=== PATIENT | female | born 1980 | race Caucasian/White ===

== ENCOUNTER 2016-11-01 20:51 | Emergency (ER) | payer SELFPAY ==
[~2016-11-01] VITALS: Ht 165.1 cm; Wt 106.6 kg
[~2016-11-01 20:51] MED LIST: ARIP5TAB6 PO; DULO60CA6 PO; LEVO88TA2 PO; LIRA0.6P SQ; Loperamide Hcl PO; METF10002 PO; NAPR500T PO; ONDA4TAB10 SL; Oxycodone Hcl/Acetaminophen PO
[2016-11-01 21:03] VITALS: BP 136/83
[2016-11-01] MEDS ORDERED: CLINDAMYCIN HCL 150 MG CAPSULE PO ONE (21:45)
[2016-11-01] MEDS ORDERED: HYDROCODONE/APAP 5/325MG TABLET. PO ONE (21:45)
[2016-11-01] MEDS ORDERED: HYDR-971 PO (21:48)
[2016-11-01] MEDS ORDERED: CLIN-44 PO (21:48)
--- NOTE | 2016-11-01 21:48 | PHYS DOC ---
Past Medical History Past Medical History: A-Fib, Anemia, Depression, Diabetes-Type II, Kidney Stone , Other Additional Past Medical Histor: multiple spontaneous abortions, ulcerative colitis, Past Surgical History: Cholecystectomy, , Other Additional Past Surgical Histo: D&C, lithotripsy Alcohol Use: None Drug Use: None Adult General Chief Complaint Chief Complaint: BREAST PROBLEM HPI HPI Patient is a 36 year old female with history of anemia, A. fib, depression, diabetes type 2, who presents with infection on her left breast. Patient states she had her left breast biopsied on Saturday this week to remove a skin lesion by her doctor. Patient states she was given antibiotic cream to apply to the area. Patient states she feels the area is getting more infected. Patient states she also has trace clear drainage from the left breast that she noted today. Patient denies any personal history of breast cancer. She states she has family history of breast cancer. Patient denies any fever. Denies any chance she is . Review of Systems Review of Systems Constitutional: Denies fever or chills [] Musculoskeletal: Denies back pain or joint pain [] Integument: Skin infection to the left breast Neurologic: Denies headache, focal weakness or sensory changes [] Endocrine: Denies polyuria or polydipsia [] Allergies Allergies Allergies Coded Allergies Type Severity Reaction Last Updated Verified morphine Allergy Intermediate TOLERATES DILAUDID 09/27/16 No butorphanol Adverse Reaction Severe "i get very angry" 09/27/16 Yes Physical Exam Physical Exam Constitutional: Well developed, well nourished, no acute distress, non-toxic appearance. [] Skin: Left breast around 9 o'clock position with 2 sutures with surrounding 2 cm of cellulitis. There is no drainage from the area, no palpable masses noted on the area. No unusual breast masses noted on exam of the left breast. No nipple discharge noted, no nipple retraction noted on the left breast Back: No tenderness, no CVA tenderness. [] Extremities: No tenderness, no cyanosis, no clubbing, ROM intact, no edema. [] Neurologic: Alert and oriented X 3, normal motor function, normal sensory function, no focal deficits noted. [] Psychologic: Affect normal, judgement normal, mood normal. [] Current Patient Data Vital Signs Vital Signs Date Time Temp Pulse Resp B/P Pulse Ox O2 Delivery O2 Flow Rate FiO2 11/01/16 21:03 98.7 113 18 97 Room Air 98.7 EKG EKG [] Radiology/Procedures Radiology/Procedures [] Course & Med Decision Making Course & Med Decision Making Pertinent Labs and Imaging studies reviewed. (See chart for details) Patient is in the ED with slight cellulitis on left breast biopsy site. This appears to be a superficial infection. She is afebrile. She was put on clindamycin for 10 days, first dose was given in the ED. Discharged with hydrocodone for pain. Recommended she contact the doctor who did the biopsy tomorrow and let the doctor know the area was getting infected. She was provided return precautions discharged in stable condition. Dragon Disclaimer Dragon Disclaimer This electronic medical record was generated, in whole or in part, using a voice recognition dictation system. Departure Departure Impression: Primary Impression: Cellulitis of left breast Disposition: HOME, SELF-CARE Condition: STABLE Referrals: OVIDIO DIAMOND (PCP) Please contact the doctor but didn't biopsied and let them know the area is getting infected. Patient Instructions: Cellulitis, [id number] Additional Instructions: You were seen for cellulitis of the left breast, keep the area clean and dry. Complete your antibiotics, contact the doctor that did the biopsy let them know the area was is getting infected. Come back to the emergency room if symptoms worsen Scripts Hydrocodone/Apap 5-325 ([place] 5-325 Tablet)1 Each Tablet1-2 Tab PO Q4-6HRS #20 TAB Prov:MYCHAL THAPA APRN 11/01/16 Clindamycin Hcl 150 Mg Capsule3 Cap PO TID #90 CAP Prov:MYCHAL THAPA APRN 11/01/16 MYCHAL THAPA APRN Nov 01, 2016 21:49
== END 2016-11-01 22:02 | disposition home or self-care (01) ==
LOC: ER 20:51
DX: N61.0 Mastitis without abscess (principal); I48.91 Unspecified atrial fibrillation; E11.9 Type 2 diabetes mellitus without complications; Z80.3 Family history of malignant neoplasm of breast; Z88.8 Allergy status to other drugs, medicaments and biological substances
CPT/HCPCS: 99283

== ENCOUNTER 2017-03-22 05:02 | Inpatient (IN) | payer OTHER ==
[~2017-03-22] VITALS: Ht 167.6 cm; Wt 104.3 kg
[~2017-03-22 05:02] MED LIST changes: +CLIN-44 PO; +HYDR-971 PO; +METF-620 PO; -METF10002 PO
[2017-03-22 06:30] VITALS: BP 121/83
[2017-03-22 07:00] VITALS: BP 128/86
[2017-03-22] MEDS: PANTOPRAZOLE IV PUSH 40 MG VIAL. IVP SCH (07:57)
[2017-03-22] MEDS: IV NORMAL SALINE 1000ML BAG 1,000 ML IV SCH ×2 (07:58→17:50)
[2017-03-22] MEDS: fentaNYL PF VIAL 100 MCG/2 ML VIAL IV PRN ×5 (08:15→17:49)
[2017-03-22] MEDS: ONDANSETRON PF 4 MG/2 ML VIAL. IV PRN ×2 (08:15→17:48)
[2017-03-22] MEDS ORDERED: LIRA0.6P2 SQ (10:51)
[2017-03-22] MEDS ORDERED: LEVO75TA5 PO (10:51)
[2017-03-22 11:00] VITALS: BP 123/75
--- NOTE | 2017-03-22 11:16 | PDOC2 ---
HARSHAD ROSEN [employer] 03/22/17 1116: CONSULT Date of Consult Date of Consult DATE: 03/22/17 TIME: 11:06 Reason for Consult Reason for Consult: sbo Referring Physician Referring Physician: [facility] Identification/Chief Complaint Chief Complaint abdominal pain Source Source: Chart review, Patient History of Present Illness Reason for Visit: Acute onset of abdominal pain diffusely starting yesterday. Associated nausea, emesis, and burping foul smell. Reports chronic diarrhea for several months, is having some stool and flatus now, however abdominal pain continues and continues to feel bloated. Pain is worse today. She does report that she was admitted to [facility] a few months ago with sbo, treated conservatively. Previous endoscopy a few years ago for colitis. Denies any hx of IBD Csection with low pelvic scar and lap chavo are only surgical hx Past Medical History Pulmonary: No pertinent hx GI: No pertinent hx, Other Heme/Onc: No pertinent hx Hepatobiliary: No pertinent hx Psych: Bipolar, Depression Rheumatologic: No pertinent hx Renal/: Other Endocrine: Diabetes, Hypothyroidism Past Surgical History Past Surgical History: Cholecystectomy, Family History Family History: Hypertension, Other Social History Quit (2 months ago ) ALCOHOL: none Drugs: None Lives: with Family Current Medications Current Medications Current Medications Ondansetron HCl (Zofran) 4 mg PRN Q6HRS PRN IV NAUSEA/VOMITING Last administered on 03/22/17 08:15; Start 03/22/17 at 07:45 Fentanyl Citrate (Fentanyl 2ml Vial) 50 mcg PRN Q2HR PRN IV PAIN Last administered on 03/22/17 08:15; Start 03/22/17 at 07:45 Pantoprazole Sodium (Protonix Vial) 40 mg DAILYAC IVP Last administered on 03/22 07:57; Start 03/22/17 at 08:00 Sodium Chloride 1,000 ml @ 100 mls/hr Q10H IV Last administered on 03/22/17 07:58; Start 03/22/17 at 07:45 Active Scripts Active [place] 5-325 Tablet (Acetaminophen/Hydrocodone Bitart) 1 Each Tablet 1-2 Tab PO Q4-6HRS Clindamycin Hcl 150 Mg Capsule 3 Cap PO TID Zofran Odt (Ondansetron) 4 Mg Tab.rapdis 1 Tab SL Q8HRS [Oxycodone Hcl/Acetaminophen] 1 TAB Tablet 1 Tab PO PRN Q4HRS PRN [Loperamide Hcl] 2 MG Capsule 2 Mg PO BID Reported Victoza 3-Sp (Liraglutide) 0.6 Mg/0.1 Ml Pen.injctr 1.8 Mg SQ HS Levothyroxine Sodium 75 Mcg Tablet 1 Tab PO DAILY Abilify (Aripiprazole) 5 Mg Tablet 5 Mg PO DAILY Cymbalta (Duloxetine Hcl) 60 Mg Capsule.dr 1 Cap PO DAILY Metformin Hcl 1,000 Mg Tablet 1 Tab PO BID Allergies Allergies: Coded Allergies: morphine (Unverified Allergy, Intermediate, TOLERATES DILAUDID, 09/27/16) butorphanol (Verified Adverse Reaction, Severe, "i get very angry", ) ROS General: YES: Chills, No: Other (fevers) PSYCHOLOGICAL ROS: No: Anxiety, Depression Eyes: No Blurry vision, No Double vision HEENT: No: Heacaches, Sore Throat Hematological and Lymphatic: No: Bleeding Problems, Blood Clots Respiratory: YES: Shortness of breath, No: Cough Cardiovascular: No Chest Pain, No Palpitations Gastrointestinal: Yes Other (see hpi) Genitourinary: No Dysuria, No Hematuria Musculoskeletal: No Joint Pain, No Muscle Pain Neurological: No Confusion, No Numbness/Tingling Skin: No Pruritus, No Rash Physical Exam General: Alert, Oriented X3, Cooperative, No acute distress HEENT: Mucous membr. moist/pink, Other (NG in place, bilious ) Lungs: Clear to auscultation, Normal air movement Heart: Regular rate, Normal S1, Normal S2 Abdomen: Soft, Other (tender across upper abdomen, no rebound, peritoneal signs ) Extremities: No clubbing, No cyanosis Skin: No rashes, No breakdown Neuro: Normal speech, Sensation intact Psych/Mental Status: Mental status NL, Mood NL MUSCULOSKELETAL: No deformity, No swelling Vitals VITALS Vital Signs Date Time Temp Pulse Resp B/P (MAP) Pulse Ox O2 Delivery O2 Flow Rate FiO2 03/22/17 08:15 Room Air 03/22/17 07:00 97.4 95 20 128/86 (100) 95 97.4 Labs Labs Laboratory Tests Test 03/22/17 08:00 Glucose (Fingerstick) 98 mg/dL (70-99) Laboratory Tests Test 03/22/17 08:00 Glucose (Fingerstick) 98 mg/dL (70-99) Assessment/Plan Assessment/Plan sbo vs ileus--diarrhea CT reviewed from [facility]--no transition point hx of csection and lap chavo possible SBO couple months ago at [facility] obesity with BMI 35.4 lipase elevated 485, no acute findings on CT NG to LIS, bowel rest, hydration repeat plain films in AM consider SBFT to further eval check C diff will consult GI WILLIE HAYNES MD 03/22/17 1403: CONSULT Allergies Allergies: Coded Allergies: morphine (Unverified Allergy, Intermediate, TOLERATES DILAUDID, 09/27/16) butorphanol (Verified Adverse Reaction, Severe, "i get very angry", ) Assessment/Plan Assessment/Plan Patient seen and examined by me. She complains of abd pain, no nausea. Having diarrhea. Abd soft, mildly distended, TTP diffusely. CT reviewed dilated loops of small bowel. Possible infectious diarrhea, Agree with Ketty's assessment and plan. HARSHAD ROSEN APRN March 22, 2017 11:16 WILLIE HAYNES MD March 22, 2017 14:03
--- NOTE | 2017-03-22 11:48 | HP ---
ADMIT DATE: 03/22/2017 CHIEF COMPLAINT: Abdominal pain, probable small-bowel obstruction. HISTORY OF PRESENT ILLNESS: The patient is a pleasant, healthy middle-aged white female who presents to [facility] ER with nausea, vomiting, and abdominal pain. Imaging study showed a small-bowel obstruction. An NG was placed. She has now been transferred to our facility with consultation to GI and General Surgery. PAST MEDICAL HISTORY: Previous bowel obstruction, cholecystectomy. ALLERGIES: None. FAMILY HISTORY: Hypertension. SOCIAL HISTORY: She does not drink, smoke or take drugs. MEDICATIONS: Reviewed, please refer to the MRAD. REVIEW OF SYSTEMS: GENERAL: No history of weight change, weakness or fevers. SKIN: No bruising, hair changes or rashes. EYES: No blurred, double or loss of vision. NOSE AND THROAT: No history of nosebleeds, hoarseness or sore throat. HEART: No history of palpitations, chest pain or shortness of breath on exertion. LUNGS: Denies cough, hemoptysis, wheezing or shortness of breath. GASTROINTESTINAL: She complains of pain and nausea. GENITOURINARY: No history of frequency, urgency, hesitancy or nocturia. NEUROLOGIC: Denies history of numbness, tingling, tremor or weakness. PSYCHIATRIC: No history of panic, anxiety or depression. ENDOCRINE: No history of heat or cold intolerance, polyuria or polydipsia. EXTREMITIES: Denies muscle weakness, joint pain, pain on walking or stiffness. PHYSICAL EXAMINATION: VITAL SIGNS: Temperature afebrile, pulse 74, respirations 20, blood pressure 142/96. GENERAL: She is alert, cooperative. HEART: Normal S1, S2. LUNGS: Clear. ABDOMEN: Soft. Decreased bowel sounds, tender. EXTREMITIES: No edema. SKIN: No rashes. PSYCHIATRIC: She is a little depressed. VASCULAR: Good capillary refill. ENDOCRINE: No thyromegaly. LYMPHATICS: No cervical nodes. HEMATOPOIETIC: No bruising. LABORATORY DATA: Pending, other than a glucose of 98. I did order a CBC and a BMP. ASSESSMENT AND PLAN: Small-bowel obstruction. The patient has an NG to suction. We will continue with that. Consult GI, consult General Surgery. We will try to resume her home meds once we get the NG out. IV hydration, n.p.o. We will probably repeat serial KUBs, PT, OT and labs. AMADORL Yelena DESAI DO DR: NATASHA/leon JOB#: [id number] / [id number]
--- NOTE | 2017-03-22 12:05 | PDOC2 ---
GI CONSULT Reason For Consult: Ileus vs SBO HPI: HPI: Pt seen w/ Dr. Valladares. 36 y/o female transferred from [facility] where CT showed dilated loops of bowel. Surgery following, has NG. H/o previous abd surgeries and obstructive symptoms at [facility] recently, treated conservatively. Recently has had "egg burps," yesterday had emesis that smelled like stool w/ bloating and periumbilical pain. Chronic diarrhea, was worse recently but has slowed that past few days. Has had previous EGD and more than one colonoscopy, one w/ "colitis" and one reportedly normal. No reflux/heartburn or NSAID use. PMH: PMH: DM, hypothyroidism, bipolar, depression, cholecystectomy, , D&Cs, endometrial ablation, cystoscopy FH: Family History: Other (grandmother - Crohn's) Social History: Smoke: Quit (2 months ago ) ALCOHOL: none Drugs: None ROS: GEN: Denies fevers, chills, sweats HEENT: Denies blurred vision, sore throat CV: Denies chest pain RESP: Denies shortness of air, cough GI: Per HPI : Denies hematuria, dysuria ENDO: Denies weight changes NEURO: Denies confusion, dizziness MSK: Denies weakness, joint pain/swelling SKIN: Denies jaundice, pruritus Vitals: Vitals: Vital Signs Date Time Temp Pulse Resp B/P (MAP) Pulse Ox O2 Delivery O2 Flow Rate FiO2 03/22/17 11:13 Room Air 03/22/17 11:00 97.4 100 20 123/75 (91) 97 97.4 Labs: Labs: Laboratory Tests Test 03/22/17 08:00 Glucose (Fingerstick) 98 mg/dL (70-99) Allergies: Coded Allergies: morphine (Unverified Allergy, Intermediate, TOLERATES DILAUDID, 09/27/16) butorphanol (Verified Adverse Reaction, Severe, "i get very angry", ) Medications: Current Medications Medications (Trade) Dose Ordered Sig/Chandler Route PRN Reason Start Time Stop Time Status Last Admin Dose Admin Ondansetron HCl (Zofran) 4 mg PRN Q6HRS PRN IV NAUSEA/VOMITING 03/22/17 07:45 03/22/17 08:15 Fentanyl Citrate (Fentanyl 2ml Vial) 50 mcg PRN Q2HR PRN IV PAIN 03/22/17 07:45 03/22/17 11:13 Pantoprazole Sodium (Protonix Vial) 40 mg DAILYAC IVP 03/22/17 08:00 03/22/17 07:57 Sodium Chloride 1,000 ml @ 100 mls/hr Q10H IV 03/22/17 07:45 03/22/17 07:58 Imaging: Imaging: - PE: GEN: NAD HEENT: Atraumatic, PERRL LUNGS: CTAB HEART: RRR ABD: firm, tender EXTREMITY: No edema SKIN: No rashes, no jaundice NEURO/PSYCH: A & O 3 A/P: A/P: Ileus vs SBO -previous obstructive symptoms at another hospital, conservative treatment -abd pain, vomiting recurred Chronic diarrhea, h/o "colitis" H/o abd surgeries -chavo, FH Crohn's -- Agree w/ NPO, NG, serial imaging. Check lactic acid w/ severe pain. Note orders to check C Diff as well. Will review records of previous EGD/colonoscopy. SHARIF GARVEY March 22, 2017 12:05
[2017-03-22] MEDS: METOCLOPRAMIDE HCL 10 MG/2 ML VIAL. IV PRN (13:15)
[2017-03-22 15:00] VITALS: BP 116/70
[2017-03-22] MEDS ORDERED: PHENOL ORAL SPRAY 177ML BOTTLE. PO PRN (18:45)
[2017-03-22 19:00] VITALS: BP 114/68
[2017-03-22 23:00] VITALS: BP 134/72
[2017-03-23 03:00] VITALS: BP 115/77
[2017-03-23] MEDS: IV NORMAL SALINE 1000ML BAG 1,000 ML IV SCH (04:28)
[2017-03-23] MEDS: fentaNYL PF VIAL 100 MCG/2 ML VIAL IV PRN ×7 (04:28→20:24)
[2017-03-23 05:18] LABS: BASO % 1 % (0-3); EOS % 2 % (0-3); HEMATOCRIT 34.3 % (36.0-47.0); HEMOGLOBIN 11.3 g/dL (12.0-15.5); LYMPH % 25 % (24-48); MEAN CORPUSCULAR HEMOGLOBIN 29 pg (25-35); MEAN CORPUSCULAR HGB CONC 33 g/dL (31-37); MEAN CORPUSCULAR VOLUME 89 fL (79-100); MONO % 4 % (0-9); NEUT % 68 % (31-73); PLATELET COUNT 323 x10^3/uL (140-400); RED BLOOD COUNT 3.88 x10^6/uL (3.50-5.40); RED CELL DISTRIBUTION WIDTH 15.5 % (11.5-14.5); WHITE BLOOD COUNT 7.7 x10^3/uL (4.0-11.0)
[2017-03-23 05:37] LABS: CALCIUM 8.2 mg/dL (8.5-10.1); CREATININE 0.7 mg/dL (0.6-1.0); GFR 95.8; POTASSIUM 3.9 mmol/L (3.5-5.1)
[2017-03-23 07:00] VITALS: BP 132/85
[2017-03-23] MEDS: PANTOPRAZOLE IV PUSH 40 MG VIAL. IVP SCH (08:01)
--- NOTE | 2017-03-23 08:01 | RAD ---
EXAM: Abdomen acute complete. HISTORY: Small bowel obstruction. COMPARISON: CT dated 02/15/2016. FINDINGS: A frontal view the chest and frontal upright and supine views of the abdomen are obtained. There is no infiltrate, effusion or pneumothorax. The heart is normal in size. There is a nasogastric tube looped within the stomach with the tip in the gastric antrum or pylorus. There is gas and stool within the colon. No abnormally dilated air-filled loop of small bowel seen. There is no intraperitoneal free air. IMPRESSION: 1. No acute pulmonary finding. 2. Nonobstructive bowel gas pattern.
[2017-03-23] MEDS: ONDANSETRON PF 4 MG/2 ML VIAL. IV PRN ×2 (08:04→17:56)
--- NOTE | 2017-03-23 08:12 | ACF ---
Admission Forms Criteria INTESTINAL OBSTRUCTION Clinical Indications for Admission to Inpatient Care (Place 'X' for any and all applicable criteria): Admission is indicated for ANY ONE of the following (1)(2)(3)(4)(5): [ ]I. Partial bowel obstruction [X]II. Complete bowel obstruction Extended stay beyond goal length of stay may be needed for(1)(4)(12(: [ ]a) Identified etiology (eg, hernia, volvulus, cancer with obstruction) requiring intervention [ ]b) Gallstone ileus [ ]c) Surgical intervention [ ]d) Acute comorbid illness (eg, electrolyte imbalance, hypovolemia, renal failure) The original [employer] content created by [employer] has been revised. The portions of the content which have been revised are identified through the use of italic text or in bold, and [facility] has neither reviewed nor approved the modified material. All other unmodified content is copyright [employer]. Please see references footnoted in the original [employer] edition 2016 Admission Criteria Met?: Yes MARIVEL CRYSTAL March 23, 2017 08:12
--- NOTE | 2017-03-23 09:10 | PDOC ---
SURGICAL PROGRESS NOTE Subjective Feeling bloated today, no diarrhea today. Vital Signs Vital Signs Date Time Temp Pulse Resp B/P (MAP) Pulse Ox O2 Delivery O2 Flow Rate FiO2 03/23/17 08:39 Room Air 03/23/17 07:00 97.9 102 16 132/85 (101) 96 97.9 I&O Intake and Output 03/23/17 07:00 Intake Total 0 ml Output Total 1800 ml Balance -1800 ml Intake Oral 0 ml Output Gastric Drainage Total 700 ml Drainage Total 1100 ml # Voids 2 PATIENT HAS A CHAVEZ: No General: Alert, Oriented X3, Cooperative, mild distress Abdomen: Normal bowel sounds, Soft, Other (less tender. NGT in place with minimal output.) Labs Laboratory Tests Test 03/22/17 08:00 03/22/17 12:01 03/22/17 12:15 03/22/17 16:50 Glucose (Fingerstick) 98 mg/dL (70-99) 105 mg/dL (70-99) 89 mg/dL (70-99) Lactic Acid Level 1.3 mmol/L (0.4-2.0) Test 03/22/17 21:15 03/23/17 04:00 03/23/17 07:27 Glucose (Fingerstick) 77 mg/dL (70-99) 120 mg/dL (70-99) White Blood Count 7.7 x10^3/uL (4.0-11.0) Red Blood Count 3.88 x10^6/uL (3.50-5.40) Hemoglobin 11.3 g/dL (12.0-15.5) Hematocrit 34.3 % (36.0-47.0) Mean Corpuscular Volume 89 fL (79-100) Mean Corpuscular Hemoglobin 29 pg (25-35) Mean Corpuscular Hemoglobin Concent 33 g/dL (31-37) Red Cell Distribution Width 15.5 % (11.5-14.5) Platelet Count 323 x10^3/uL (140-400) Neutrophils (%) (Auto) 68 % (31-73) Lymphocytes (%) (Auto) 25 % (24-48) Monocytes (%) (Auto) 4 % (0-9) Eosinophils (%) (Auto) 2 % (0-3) Basophils (%) (Auto) 1 % (0-3) Neutrophils # (Auto) 5.3 x10^3uL (1.8-7.7) Lymphocytes # (Auto) 2.0 x10^3/uL (1.0-4.8) Monocytes # (Auto) 0.3 x10^3/uL (0.0-1.1) Eosinophils # (Auto) 0.2 x10^3/uL (0.0-0.7) Basophils # (Auto) 0.0 x10^3/uL (0.0-0.2) Sodium Level 142 mmol/L (136-145) Potassium Level 3.9 mmol/L (3.5-5.1) Chloride Level 109 mmol/L (98-107) Carbon Dioxide Level 24 mmol/L (21-32) Anion Gap 9 (6-14) Blood Urea Nitrogen 12 mg/dL (7-20) Creatinine 0.7 mg/dL (0.6-1.0) Estimated GFR (Cockcroft-Gault) 95.8 Glucose Level 108 mg/dL (70-99) Calcium Level 8.2 mg/dL (8.5-10.1) Laboratory Tests Test 03/22/17 12:01 03/22/17 12:15 03/22/17 16:50 03/22/17 21:15 Glucose (Fingerstick) 105 mg/dL (70-99) 89 mg/dL (70-99) 77 mg/dL (70-99) Lactic Acid Level 1.3 mmol/L (0.4-2.0) Test 03/23/17 04:00 03/23/17 07:27 White Blood Count 7.7 x10^3/uL (4.0-11.0) Red Blood Count 3.88 x10^6/uL (3.50-5.40) Hemoglobin 11.3 g/dL (12.0-15.5) Hematocrit 34.3 % (36.0-47.0) Mean Corpuscular Volume 89 fL (79-100) Mean Corpuscular Hemoglobin 29 pg (25-35) Mean Corpuscular Hemoglobin Concent 33 g/dL (31-37) Red Cell Distribution Width 15.5 % (11.5-14.5) Platelet Count 323 x10^3/uL (140-400) Neutrophils (%) (Auto) 68 % (31-73) Lymphocytes (%) (Auto) 25 % (24-48) Monocytes (%) (Auto) 4 % (0-9) Eosinophils (%) (Auto) 2 % (0-3) Basophils (%) (Auto) 1 % (0-3) Neutrophils # (Auto) 5.3 x10^3uL (1.8-7.7) Lymphocytes # (Auto) 2.0 x10^3/uL (1.0-4.8) Monocytes # (Auto) 0.3 x10^3/uL (0.0-1.1) Eosinophils # (Auto) 0.2 x10^3/uL (0.0-0.7) Basophils # (Auto) 0.0 x10^3/uL (0.0-0.2) Sodium Level 142 mmol/L (136-145) Potassium Level 3.9 mmol/L (3.5-5.1) Chloride Level 109 mmol/L (98-107) Carbon Dioxide Level 24 mmol/L (21-32) Anion Gap 9 (6-14) Blood Urea Nitrogen 12 mg/dL (7-20) Creatinine 0.7 mg/dL (0.6-1.0) Estimated GFR (Cockcroft-Gault) 95.8 Glucose Level 108 mg/dL (70-99) Calcium Level 8.2 mg/dL (8.5-10.1) Glucose (Fingerstick) 120 mg/dL (70-99) I have reviewed the following Abd films show normal bowel gas pattern no evidence of obstruction Assessment/Plan Abd pain with diarrhea, does not appear to be nonobstructive Would recommend removal of NGT unless GI wants to do SBFT then would leave to administer contrast No surgical indications at this time. Problems: WILLIE HAYNES MD March 23, 2017 09:10
--- NOTE | 2017-03-23 10:24 | PDOC ---
G I PROGRESS NOTE Subjective Some mid-abdominal cramps persist. NG output apparently slowing. No stool or flatus. Physical Exam Lungs clear. RRR Abdomen protuberant, not tense. Mildly tender mid-abdomen. Not many bowel sounds. Review of Relevant I have reviewed the following items chivo (where applicable) has been applied. Labs Laboratory Tests Test 03/22/17 08:00 03/22/17 12:01 03/22/17 12:15 03/22/17 16:50 Glucose (Fingerstick) 98 mg/dL (70-99) 105 mg/dL (70-99) 89 mg/dL (70-99) Lactic Acid Level 1.3 mmol/L (0.4-2.0) Test 03/22/17 21:15 03/23/17 04:00 03/23/17 07:27 Glucose (Fingerstick) 77 mg/dL (70-99) 120 mg/dL (70-99) White Blood Count 7.7 x10^3/uL (4.0-11.0) Red Blood Count 3.88 x10^6/uL (3.50-5.40) Hemoglobin 11.3 g/dL (12.0-15.5) Hematocrit 34.3 % (36.0-47.0) Mean Corpuscular Volume 89 fL (79-100) Mean Corpuscular Hemoglobin 29 pg (25-35) Mean Corpuscular Hemoglobin Concent 33 g/dL (31-37) Red Cell Distribution Width 15.5 % (11.5-14.5) Platelet Count 323 x10^3/uL (140-400) Neutrophils (%) (Auto) 68 % (31-73) Lymphocytes (%) (Auto) 25 % (24-48) Monocytes (%) (Auto) 4 % (0-9) Eosinophils (%) (Auto) 2 % (0-3) Basophils (%) (Auto) 1 % (0-3) Neutrophils # (Auto) 5.3 x10^3uL (1.8-7.7) Lymphocytes # (Auto) 2.0 x10^3/uL (1.0-4.8) Monocytes # (Auto) 0.3 x10^3/uL (0.0-1.1) Eosinophils # (Auto) 0.2 x10^3/uL (0.0-0.7) Basophils # (Auto) 0.0 x10^3/uL (0.0-0.2) Sodium Level 142 mmol/L (136-145) Potassium Level 3.9 mmol/L (3.5-5.1) Chloride Level 109 mmol/L (98-107) Carbon Dioxide Level 24 mmol/L (21-32) Anion Gap 9 (6-14) Blood Urea Nitrogen 12 mg/dL (7-20) Creatinine 0.7 mg/dL (0.6-1.0) Estimated GFR (Cockcroft-Gault) 95.8 Glucose Level 108 mg/dL (70-99) Calcium Level 8.2 mg/dL (8.5-10.1) Laboratory Tests Test 03/22/17 12:01 03/22/17 12:15 03/22/17 16:50 03/22/17 21:15 Glucose (Fingerstick) 105 mg/dL (70-99) 89 mg/dL (70-99) 77 mg/dL (70-99) Lactic Acid Level 1.3 mmol/L (0.4-2.0) Test 03/23/17 04:00 03/23/17 07:27 White Blood Count 7.7 x10^3/uL (4.0-11.0) Red Blood Count 3.88 x10^6/uL (3.50-5.40) Hemoglobin 11.3 g/dL (12.0-15.5) Hematocrit 34.3 % (36.0-47.0) Mean Corpuscular Volume 89 fL (79-100) Mean Corpuscular Hemoglobin 29 pg (25-35) Mean Corpuscular Hemoglobin Concent 33 g/dL (31-37) Red Cell Distribution Width 15.5 % (11.5-14.5) Platelet Count 323 x10^3/uL (140-400) Neutrophils (%) (Auto) 68 % (31-73) Lymphocytes (%) (Auto) 25 % (24-48) Monocytes (%) (Auto) 4 % (0-9) Eosinophils (%) (Auto) 2 % (0-3) Basophils (%) (Auto) 1 % (0-3) Neutrophils # (Auto) 5.3 x10^3uL (1.8-7.7) Lymphocytes # (Auto) 2.0 x10^3/uL (1.0-4.8) Monocytes # (Auto) 0.3 x10^3/uL (0.0-1.1) Eosinophils # (Auto) 0.2 x10^3/uL (0.0-0.7) Basophils # (Auto) 0.0 x10^3/uL (0.0-0.2) Sodium Level 142 mmol/L (136-145) Potassium Level 3.9 mmol/L (3.5-5.1) Chloride Level 109 mmol/L (98-107) Carbon Dioxide Level 24 mmol/L (21-32) Anion Gap 9 (6-14) Blood Urea Nitrogen 12 mg/dL (7-20) Creatinine 0.7 mg/dL (0.6-1.0) Estimated GFR (Cockcroft-Gault) 95.8 Glucose Level 108 mg/dL (70-99) Calcium Level 8.2 mg/dL (8.5-10.1) Glucose (Fingerstick) 120 mg/dL (70-99) Medications Current Medications Ondansetron HCl (Zofran) 4 mg PRN Q6HRS PRN IV NAUSEA/VOMITING Last administered on 03/23/17 08:04; Start 03/22/17 at 07:45 Fentanyl Citrate (Fentanyl 2ml Vial) 50 mcg PRN Q2HR PRN IV PAIN Last administered on 03/23/17 04:28; Start 03/22/17 at 07:45 Pantoprazole Sodium (Protonix Vial) 40 mg DAILYAC IVP Last administered on 03/23 08:01; Start 03/22/17 at 08:00 Sodium Chloride 1,000 ml @ 100 mls/hr Q10H IV Last administered on 03/23/17 04:28; Start 03/22/17 at 07:45 Fentanyl Citrate (Fentanyl 2ml Vial) 75 mcg PRN Q2HR PRN IV MODERATE PAIN Last administered on 03/23/17 08:02; Start 03/22/17 at 12:30 Metoclopramide HCl (Reglan) 10 mg PRN Q6HRS PRN IV NAUSEA/VOMITING Last administered on 03/22/17 13:15; Start 03/22/17 at 13:00 Throat Lozenges (Chloraseptic) 1 spray PRN Q2HR PRN PO SORE THROAT Last administered on 03/22/17 21:03; Start 03/22/17 at 18:45 Lorazepam (Ativan) 0.5 mg PRN BID PRN IV ANXIETY / AGITATION Last administered on 03/22/17 21:02; Start 03/22/17 at 20:30 Active Scripts Active [place] 5-325 Tablet (Acetaminophen/Hydrocodone Bitart) 1 Each Tablet 1-2 Tab PO Q4-6HRS Clindamycin Hcl 150 Mg Capsule 3 Cap PO TID Zofran Odt (Ondansetron) 4 Mg Tab.rapdis 1 Tab SL Q8HRS [Oxycodone Hcl/Acetaminophen] 1 TAB Tablet 1 Tab PO PRN Q4HRS PRN [Loperamide Hcl] 2 MG Capsule 2 Mg PO BID Reported Victoza 3-Sp (Liraglutide) 0.6 Mg/0.1 Ml Pen.injctr 1.8 Mg SQ HS Levothyroxine Sodium 75 Mcg Tablet 1 Tab PO DAILY Abilify (Aripiprazole) 5 Mg Tablet 5 Mg PO DAILY Cymbalta (Duloxetine Hcl) 60 Mg Capsule. 1 Cap PO DAILY Metformin Hcl 1,000 Mg Tablet 1 Tab PO BID Vitals/I & O Vital Sign - Last 24 Hours 03/22/17 03/22/17 03/22/17 03/22/17 11:00 11:13 12:36 15:00 Temp 97.4 97.7 97.4 97.7 Pulse 100 93 Resp 20 20 B/P (MAP) 123/75 (91) 116/70 (85) Pulse Ox 97 96 O2 Delivery Room Air Room Air Room Air Room Air 03/22/17 03/22/17 03/22/17 03/22/17 15:22 17:49 19:00 20:00 Temp 97.7 97.7 Pulse 95 Resp 18 B/P (MAP) 114/68 (83) Pulse Ox 94 O2 Delivery Room Air Room Air Room Air Room Air 03/22/17 03/23/17 03/23/17 03/23/17 23:00 03:00 04:28 04:58 Temp 97.9 97.6 97.9 97.6 Pulse 114 98 Resp 18 18 16 16 B/P (MAP) 134/72 (92) 115/77 (90) Pulse Ox 94 96 94 94 O2 Delivery Room Air Room Air Room Air Room Air 03/23/17 03/23/17 03/23/17 03/23/17 07:00 07:15 08:02 08:39 Temp 97.9 97.9 Pulse 102 Resp 16 B/P (MAP) 132/85 (101) Pulse Ox 96 O2 Delivery Room Air Room Air Room Air Room Air Intake and Output 03/22/17 03/22/17 03/23/17 15:00 23:00 07:00 Intake Total 0 ml 0 ml Output Total 700 ml 1100 ml Balance -700 ml -1100 ml Images Only got a portable "upright" on AAS. Assessment SBO, recurrent--adhesions? Clinically has not resolved. Plan of Care Note Would continue NG, other as now at least another 24 hours. Upright abdomen STANDING in AM. JENNIFER NUNEZ MD March 23, 2017 10:24
[2017-03-23] MEDS: METOCLOPRAMIDE HCL 10 MG/2 ML VIAL. IV PRN (10:35)
[2017-03-23 11:10] VITALS: BP 118/72
--- NOTE | 2017-03-23 12:45 | PDOC ---
PROGRESS NOTES Chief Complaint Chief Complaint Possible SBO H/o previous SBO DM Hypothyroidism Bipolar disorder Depression Cholecystectomy D&Cs Endometrial ablation Cystoscopy History of Present Illness History of Present Illness Patient was lying in bed in NAD this am NG tube in place States she still has some upper abdominal tenderness Has not had a bowel movement Discussed switching to PPN since she has not had anything to eat Vitals Vitals Vital Signs Date Time Temp Pulse Resp B/P (MAP) Pulse Ox O2 Delivery O2 Flow Rate FiO2 03/23/17 11:10 98.7 96 20 118/72 (87) 92 Room Air 98.7 Physical Exam General: Alert, Oriented X3, Cooperative, No acute distress Heart: Regular rate, Normal S1, Normal S2 Lungs: Clear, Other (no wheezing) Abdomen: Normal bowel sounds, Soft, Other (less tender. NGT in place with minimal output.) Extremities: No clubbing, No cyanosis Skin: No rashes, No breakdown Labs LABS Laboratory Tests Test 03/22/17 16:50 03/22/17 21:15 03/23/17 04:00 03/23/17 07:27 Glucose (Fingerstick) 89 mg/dL (70-99) 77 mg/dL (70-99) 120 mg/dL (70-99) White Blood Count 7.7 x10^3/uL (4.0-11.0) Red Blood Count 3.88 x10^6/uL (3.50-5.40) Hemoglobin 11.3 g/dL (12.0-15.5) Hematocrit 34.3 % (36.0-47.0) Mean Corpuscular Volume 89 fL (79-100) Mean Corpuscular Hemoglobin 29 pg (25-35) Mean Corpuscular Hemoglobin Concent 33 g/dL (31-37) Red Cell Distribution Width 15.5 % (11.5-14.5) Platelet Count 323 x10^3/uL (140-400) Neutrophils (%) (Auto) 68 % (31-73) Lymphocytes (%) (Auto) 25 % (24-48) Monocytes (%) (Auto) 4 % (0-9) Eosinophils (%) (Auto) 2 % (0-3) Basophils (%) (Auto) 1 % (0-3) Neutrophils # (Auto) 5.3 x10^3uL (1.8-7.7) Lymphocytes # (Auto) 2.0 x10^3/uL (1.0-4.8) Monocytes # (Auto) 0.3 x10^3/uL (0.0-1.1) Eosinophils # (Auto) 0.2 x10^3/uL (0.0-0.7) Basophils # (Auto) 0.0 x10^3/uL (0.0-0.2) Sodium Level 142 mmol/L (136-145) Potassium Level 3.9 mmol/L (3.5-5.1) Chloride Level 109 mmol/L (98-107) Carbon Dioxide Level 24 mmol/L (21-32) Anion Gap 9 (6-14) Blood Urea Nitrogen 12 mg/dL (7-20) Creatinine 0.7 mg/dL (0.6-1.0) Estimated GFR (Cockcroft-Gault) 95.8 Glucose Level 108 mg/dL (70-99) Calcium Level 8.2 mg/dL (8.5-10.1) Test 03/23/17 11:46 Glucose (Fingerstick) 98 mg/dL (70-99) Review of Systems Review of Systems General: denies weakness GI: upper abdominal tenderness, denies V/D/C Assessment and Plan Assessmemt and Plan Assessment: Possible SBO H/o previous SBO DM Hypothyroidism Bipolar disorder Depression Cholecystectomy D&Cs Endometrial ablation Cystoscopy Plan: -Continue NG suction -Surgery following- state surgery not indicated at this time -GI following - continue NG suction -Standing abdominal series in AM per GI -Switch IVF to PPN -Recheck am labs -Appreciate subspecialist input Problems: Comment Review of Relevant I have reviewed the following items chivo (where applicable) has been applied. Labs Laboratory Tests Test 03/22/17 08:00 03/22/17 12:01 03/22/17 12:15 03/22/17 16:50 Glucose (Fingerstick) 98 mg/dL (70-99) 105 mg/dL (70-99) 89 mg/dL (70-99) Lactic Acid Level 1.3 mmol/L (0.4-2.0) Test 03/22/17 21:15 03/23/17 04:00 03/23/17 07:27 03/23/17 11:46 Glucose (Fingerstick) 77 mg/dL (70-99) 120 mg/dL (70-99) 98 mg/dL (70-99) White Blood Count 7.7 x10^3/uL (4.0-11.0) Red Blood Count 3.88 x10^6/uL (3.50-5.40) Hemoglobin 11.3 g/dL (12.0-15.5) Hematocrit 34.3 % (36.0-47.0) Mean Corpuscular Volume 89 fL (79-100) Mean Corpuscular Hemoglobin 29 pg (25-35) Mean Corpuscular Hemoglobin Concent 33 g/dL (31-37) Red Cell Distribution Width 15.5 % (11.5-14.5) Platelet Count 323 x10^3/uL (140-400) Neutrophils (%) (Auto) 68 % (31-73) Lymphocytes (%) (Auto) 25 % (24-48) Monocytes (%) (Auto) 4 % (0-9) Eosinophils (%) (Auto) 2 % (0-3) Basophils (%) (Auto) 1 % (0-3) Neutrophils # (Auto) 5.3 x10^3uL (1.8-7.7) Lymphocytes # (Auto) 2.0 x10^3/uL (1.0-4.8) Monocytes # (Auto) 0.3 x10^3/uL (0.0-1.1) Eosinophils # (Auto) 0.2 x10^3/uL (0.0-0.7) Basophils # (Auto) 0.0 x10^3/uL (0.0-0.2) Sodium Level 142 mmol/L (136-145) Potassium Level 3.9 mmol/L (3.5-5.1) Chloride Level 109 mmol/L (98-107) Carbon Dioxide Level 24 mmol/L (21-32) Anion Gap 9 (6-14) Blood Urea Nitrogen 12 mg/dL (7-20) Creatinine 0.7 mg/dL (0.6-1.0) Estimated GFR (Cockcroft-Gault) 95.8 Glucose Level 108 mg/dL (70-99) Calcium Level 8.2 mg/dL (8.5-10.1) Laboratory Tests Test 03/22/17 16:50 03/22/17 21:15 03/23/17 04:00 03/23/17 07:27 Glucose (Fingerstick) 89 mg/dL (70-99) 77 mg/dL (70-99) 120 mg/dL (70-99) White Blood Count 7.7 x10^3/uL (4.0-11.0) Red Blood Count 3.88 x10^6/uL (3.50-5.40) Hemoglobin 11.3 g/dL (12.0-15.5) Hematocrit 34.3 % (36.0-47.0) Mean Corpuscular Volume 89 fL (79-100) Mean Corpuscular Hemoglobin 29 pg (25-35) Mean Corpuscular Hemoglobin Concent 33 g/dL (31-37) Red Cell Distribution Width 15.5 % (11.5-14.5) Platelet Count 323 x10^3/uL (140-400) Neutrophils (%) (Auto) 68 % (31-73) Lymphocytes (%) (Auto) 25 % (24-48) Monocytes (%) (Auto) 4 % (0-9) Eosinophils (%) (Auto) 2 % (0-3) Basophils (%) (Auto) 1 % (0-3) Neutrophils # (Auto) 5.3 x10^3uL (1.8-7.7) Lymphocytes # (Auto) 2.0 x10^3/uL (1.0-4.8) Monocytes # (Auto) 0.3 x10^3/uL (0.0-1.1) Eosinophils # (Auto) 0.2 x10^3/uL (0.0-0.7) Basophils # (Auto) 0.0 x10^3/uL (0.0-0.2) Sodium Level 142 mmol/L (136-145) Potassium Level 3.9 mmol/L (3.5-5.1) Chloride Level 109 mmol/L (98-107) Carbon Dioxide Level 24 mmol/L (21-32) Anion Gap 9 (6-14) Blood Urea Nitrogen 12 mg/dL (7-20) Creatinine 0.7 mg/dL (0.6-1.0) Estimated GFR (Cockcroft-Gault) 95.8 Glucose Level 108 mg/dL (70-99) Calcium Level 8.2 mg/dL (8.5-10.1) Test 03/23/17 11:46 Glucose (Fingerstick) 98 mg/dL (70-99) Medications Current Medications Ondansetron HCl (Zofran) 4 mg PRN Q6HRS PRN IV NAUSEA/VOMITING Last administered on 03/23/17 08:04; Start 03/22/17 at 07:45 Fentanyl Citrate (Fentanyl 2ml Vial) 50 mcg PRN Q2HR PRN IV PAIN Last administered on 03/23/17 04:28; Start 03/22/17 at 07:45 Pantoprazole Sodium (Protonix Vial) 40 mg DAILYAC IVP Last administered on 03/23 08:01; Start 03/22/17 at 08:00 Sodium Chloride 1,000 ml @ 100 mls/hr Q10H IV Last administered on 03/23/17 04:28; Start 03/22/17 at 07:45 Fentanyl Citrate (Fentanyl 2ml Vial) 75 mcg PRN Q2HR PRN IV MODERATE PAIN Last administered on 03/23/17 10:36; Start 03/22/17 at 12:30 Metoclopramide HCl (Reglan) 10 mg PRN Q6HRS PRN IV NAUSEA/VOMITING Last administered on 03/23/17 10:35; Start 03/22/17 at 13:00 Throat Lozenges (Chloraseptic) 1 spray PRN Q2HR PRN PO SORE THROAT Last administered on 03/22/17 21:03; Start 03/22/17 at 18:45 Lorazepam (Ativan) 0.5 mg PRN BID PRN IV ANXIETY / AGITATION Last administered on 03/23/17 11:56; Start 03/22/17 at 20:30 Active Scripts Active [place] 5-325 Tablet (Acetaminophen/Hydrocodone Bitart) 1 Each Tablet 1-2 Tab PO Q4-6HRS Clindamycin Hcl 150 Mg Capsule 3 Cap PO TID Zofran Odt (Ondansetron) 4 Mg Tab.rapdis 1 Tab SL Q8HRS [Oxycodone Hcl/Acetaminophen] 1 TAB Tablet 1 Tab PO PRN Q4HRS PRN [Loperamide Hcl] 2 MG Capsule 2 Mg PO BID Reported Victoza 3-Sp (Liraglutide) 0.6 Mg/0.1 Ml Pen.injctr 1.8 Mg SQ HS Levothyroxine Sodium 75 Mcg Tablet 1 Tab PO DAILY Abilify (Aripiprazole) 5 Mg Tablet 5 Mg PO DAILY Cymbalta (Duloxetine Hcl) 60 Mg Capsule.dr 1 Cap PO DAILY Metformin Hcl 1,000 Mg Tablet 1 Tab PO BID Vitals/I & O Vital Sign - Last 24 Hours 03/22/17 03/22/17 03/22/17 03/22/17 15:00 15:22 17:49 19:00 Temp 97.7 97.7 97.7 97.7 Pulse 93 95 Resp 20 18 B/P (MAP) 116/70 (85) 114/68 (83) Pulse Ox 96 94 O2 Delivery Room Air Room Air Room Air Room Air 03/22/17 03/22/17 03/23/17 03/23/17 20:00 23:00 03:00 04:28 Temp 97.9 97.6 97.9 97.6 Pulse 114 98 Resp 18 18 16 B/P (MAP) 134/72 (92) 115/77 (90) Pulse Ox 94 96 94 O2 Delivery Room Air Room Air Room Air Room Air 03/23/17 03/23/17 03/23/17 03/23/17 04:58 07:00 07:15 08:02 Temp 97.9 97.9 Pulse 102 Resp 16 16 B/P (MAP) 132/85 (101) Pulse Ox 94 96 O2 Delivery Room Air Room Air Room Air Room Air 03/23/17 03/23/17 03/23/17 10:36 11:10 11:10 Temp 98.7 98.7 Pulse 96 Resp 20 B/P (MAP) 118/72 (87) Pulse Ox 96 92 O2 Delivery Room Air Room Air Room Air Intake and Output 03/22/17 03/22/17 03/23/17 15:00 23:00 07:00 Intake Total 0 ml 0 ml Output Total 700 ml 1100 ml Balance -700 ml -1100 ml AMILCAR DESAI III DO March 23, 2017 12:45
[2017-03-23] MEDS: AMINO AC 3%/ELECTROLYTE/GLYCER 1,000 ML IV SCH (12:56)
[2017-03-23 15:00] VITALS: BP 117/73
[2017-03-23 19:00] VITALS: BP 113/80
[2017-03-23 23:00] VITALS: BP 119/74
[2017-03-24] MEDS: AMINO AC 3%/ELECTROLYTE/GLYCER 1,000 ML IV SCH ×2 (00:11→15:11)
[2017-03-24] MEDS: fentaNYL PF VIAL 100 MCG/2 ML VIAL IV PRN ×8 (00:12→19:57)
[2017-03-24 03:00] VITALS: BP 119/76
[2017-03-24] MEDS: ONDANSETRON PF 4 MG/2 ML VIAL. IV PRN ×2 (04:20→15:56)
[2017-03-24 04:57] LABS: BASO # 0.1 x10^3/uL (0.0-0.2); BASO % 1 % (0-3); EOS % 1 % (0-3); HEMATOCRIT 35.1 % (36.0-47.0); HEMOGLOBIN 11.4 g/dL (12.0-15.5); LYMPH # 2.1 x10^3/uL (1.0-4.8); LYMPH % 18 % (24-48); MEAN CORPUSCULAR HEMOGLOBIN 29 pg (25-35); MEAN CORPUSCULAR HGB CONC 33 g/dL (31-37); MEAN CORPUSCULAR VOLUME 89 fL (79-100); MONO % 5 % (0-9); NEUT % 75 % (31-73); PLATELET COUNT 323 x10^3/uL (140-400); RED BLOOD COUNT 3.97 x10^6/uL (3.50-5.40); RED CELL DISTRIBUTION WIDTH 15.4 % (11.5-14.5); WHITE BLOOD COUNT 11.5 x10^3/uL (4.0-11.0)
[2017-03-24 05:22] LABS: CREATININE 0.5 mg/dL (0.6-1.0); GFR 141.2; POTASSIUM 4.3 mmol/L (3.5-5.1)
[2017-03-24 05:58] LABS: AMYLASE 53 U/L (25-115)
[2017-03-24 07:00] VITALS: BP 122/85
[2017-03-24] MEDS: PANTOPRAZOLE IV PUSH 40 MG VIAL. IVP SCH (07:16)
[2017-03-24] MEDS: METOCLOPRAMIDE HCL 10 MG/2 ML VIAL. IV PRN ×3 (07:16→18:31)
--- NOTE | 2017-03-24 08:18 | RAD ---
EXAM: Abdomen acute complete. HISTORY: Pain. COMPARISON: CT dated 02/15/2016. FINDINGS: A frontal view the chest and frontal upright and supine views of the abdomen are obtained. There is no infiltrate, effusion or pneumothorax. The heart is normal in size. There is a nasogastric tube within the proximal duodenum. There are cholecystectomy clips. There is a nonobstructive bowel gas pattern. There is no free air. IMPRESSION: 1. No acute pulmonary finding. 2. Nonobstructive bowel gas pattern. 3. Nasogastric tube advanced into the duodenum. The tube can be retracted at least 20 cm to terminate within the stomach.
--- NOTE | 2017-03-24 09:50 | PDOC ---
G I PROGRESS NOTE Subjective Still epigastric/mid-abdominal pain. Passed small amount of flatus, not stool. Objective Quite a bit out NG over past 24 hours. Physical Exam Lungs clear. RRR Abdomen soft, not distended. Tender epigastric and periumbilically. "Groaning " bowel sounds (patient can sense). Review of Relevant I have reviewed the following items chivo (where applicable) has been applied. Labs Laboratory Tests Test 03/22/17 12:01 03/22/17 12:15 03/22/17 16:50 03/22/17 21:15 Glucose (Fingerstick) 105 mg/dL (70-99) 89 mg/dL (70-99) 77 mg/dL (70-99) Lactic Acid Level 1.3 mmol/L (0.4-2.0) Test 03/23/17 04:00 03/23/17 07:27 03/23/17 11:46 03/23/17 16:58 White Blood Count 7.7 x10^3/uL (4.0-11.0) Red Blood Count 3.88 x10^6/uL (3.50-5.40) Hemoglobin 11.3 g/dL (12.0-15.5) Hematocrit 34.3 % (36.0-47.0) Mean Corpuscular Volume 89 fL (79-100) Mean Corpuscular Hemoglobin 29 pg (25-35) Mean Corpuscular Hemoglobin Concent 33 g/dL (31-37) Red Cell Distribution Width 15.5 % (11.5-14.5) Platelet Count 323 x10^3/uL (140-400) Neutrophils (%) (Auto) 68 % (31-73) Lymphocytes (%) (Auto) 25 % (24-48) Monocytes (%) (Auto) 4 % (0-9) Eosinophils (%) (Auto) 2 % (0-3) Basophils (%) (Auto) 1 % (0-3) Neutrophils # (Auto) 5.3 x10^3uL (1.8-7.7) Lymphocytes # (Auto) 2.0 x10^3/uL (1.0-4.8) Monocytes # (Auto) 0.3 x10^3/uL (0.0-1.1) Eosinophils # (Auto) 0.2 x10^3/uL (0.0-0.7) Basophils # (Auto) 0.0 x10^3/uL (0.0-0.2) Sodium Level 142 mmol/L (136-145) Potassium Level 3.9 mmol/L (3.5-5.1) Chloride Level 109 mmol/L (98-107) Carbon Dioxide Level 24 mmol/L (21-32) Anion Gap 9 (6-14) Blood Urea Nitrogen 12 mg/dL (7-20) Creatinine 0.7 mg/dL (0.6-1.0) Estimated GFR (Cockcroft-Gault) 95.8 Glucose Level 108 mg/dL (70-99) Calcium Level 8.2 mg/dL (8.5-10.1) Glucose (Fingerstick) 120 mg/dL (70-99) 98 mg/dL (70-99) 120 mg/dL (70-99) Test 03/23/17 20:34 03/24/17 04:05 03/24/17 07:07 Glucose (Fingerstick) 112 mg/dL (70-99) 123 mg/dL (70-99) White Blood Count 11.5 x10^3/uL (4.0-11.0) Red Blood Count 3.97 x10^6/uL (3.50-5.40) Hemoglobin 11.4 g/dL (12.0-15.5) Hematocrit 35.1 % (36.0-47.0) Mean Corpuscular Volume 89 fL (79-100) Mean Corpuscular Hemoglobin 29 pg (25-35) Mean Corpuscular Hemoglobin Concent 33 g/dL (31-37) Red Cell Distribution Width 15.4 % (11.5-14.5) Platelet Count 323 x10^3/uL (140-400) Neutrophils (%) (Auto) 75 % (31-73) Lymphocytes (%) (Auto) 18 % (24-48) Monocytes (%) (Auto) 5 % (0-9) Eosinophils (%) (Auto) 1 % (0-3) Basophils (%) (Auto) 1 % (0-3) Neutrophils # (Auto) 8.7 x10^3uL (1.8-7.7) Lymphocytes # (Auto) 2.1 x10^3/uL (1.0-4.8) Monocytes # (Auto) 0.5 x10^3/uL (0.0-1.1) Eosinophils # (Auto) 0.1 x10^3/uL (0.0-0.7) Basophils # (Auto) 0.1 x10^3/uL (0.0-0.2) Sodium Level 140 mmol/L (136-145) Potassium Level 4.3 mmol/L (3.5-5.1) Chloride Level 105 mmol/L (98-107) Carbon Dioxide Level 25 mmol/L (21-32) Anion Gap 10 (6-14) Blood Urea Nitrogen 11 mg/dL (7-20) Creatinine 0.5 mg/dL (0.6-1.0) Estimated GFR (Cockcroft-Gault) 141.2 Glucose Level 114 mg/dL (70-99) Calcium Level 9.0 mg/dL (8.5-10.1) Amylase Level 53 U/L (25-115) Lipase 489 U/L (73-393) Laboratory Tests Test 03/23/17 11:46 03/23/17 16:58 03/23/17 20:34 03/24/17 04:05 Glucose (Fingerstick) 98 mg/dL (70-99) 120 mg/dL (70-99) 112 mg/dL (70-99) White Blood Count 11.5 x10^3/uL (4.0-11.0) Red Blood Count 3.97 x10^6/uL (3.50-5.40) Hemoglobin 11.4 g/dL (12.0-15.5) Hematocrit 35.1 % (36.0-47.0) Mean Corpuscular Volume 89 fL (79-100) Mean Corpuscular Hemoglobin 29 pg (25-35) Mean Corpuscular Hemoglobin Concent 33 g/dL (31-37) Red Cell Distribution Width 15.4 % (11.5-14.5) Platelet Count 323 x10^3/uL (140-400) Neutrophils (%) (Auto) 75 % (31-73) Lymphocytes (%) (Auto) 18 % (24-48) Monocytes (%) (Auto) 5 % (0-9) Eosinophils (%) (Auto) 1 % (0-3) Basophils (%) (Auto) 1 % (0-3) Neutrophils # (Auto) 8.7 x10^3uL (1.8-7.7) Lymphocytes # (Auto) 2.1 x10^3/uL (1.0-4.8) Monocytes # (Auto) 0.5 x10^3/uL (0.0-1.1) Eosinophils # (Auto) 0.1 x10^3/uL (0.0-0.7) Basophils # (Auto) 0.1 x10^3/uL (0.0-0.2) Sodium Level 140 mmol/L (136-145) Potassium Level 4.3 mmol/L (3.5-5.1) Chloride Level 105 mmol/L (98-107) Carbon Dioxide Level 25 mmol/L (21-32) Anion Gap 10 (6-14) Blood Urea Nitrogen 11 mg/dL (7-20) Creatinine 0.5 mg/dL (0.6-1.0) Estimated GFR (Cockcroft-Gault) 141.2 Glucose Level 114 mg/dL (70-99) Calcium Level 9.0 mg/dL (8.5-10.1) Amylase Level 53 U/L (25-115) Lipase 489 U/L (73-393) Test 03/24/17 07:07 Glucose (Fingerstick) 123 mg/dL (70-99) Medications Current Medications Ondansetron HCl (Zofran) 4 mg PRN Q6HRS PRN IV NAUSEA/VOMITING Last administered on 03/24/17 04:20; Start 03/22/17 at 07:45 Fentanyl Citrate (Fentanyl 2ml Vial) 50 mcg PRN Q2HR PRN IV PAIN Last administered on 03/24/17 07:16; Start 03/22/17 at 07:45 Pantoprazole Sodium (Protonix Vial) 40 mg DAILYAC IVP Last administered on 03/24 07:16; Start 03/22/17 at 08:00 Sodium Chloride 1,000 ml @ 100 mls/hr Q10H IV Last administered on 03/23/17 04:28; Start 03/22/17 at 07:45; Stop 03/23/17 at 13:07; Status DC Fentanyl Citrate (Fentanyl 2ml Vial) 75 mcg PRN Q2HR PRN IV MODERATE PAIN Last administered on 03/23/17 20:24; Start 03/22/17 at 12:30 Metoclopramide HCl (Reglan) 10 mg PRN Q6HRS PRN IV NAUSEA/VOMITING Last administered on 03/24/17 07:16; Start 03/22/17 at 13:00 Throat Lozenges (Chloraseptic) 1 spray PRN Q2HR PRN PO SORE THROAT Last administered on 03/22/17 21:03; Start 03/22/17 at 18:45 Lorazepam (Ativan) 0.5 mg PRN BID PRN IV ANXIETY / AGITATION Last administered on 03/23/17 21:21; Start 03/22/17 at 20:30 Amino Acids/ Glycerin/ Electrolytes 1,000 ml @ 75 mls/hr [id number] IV Last administered on 03/24/17 00:11; Start 03/23/17 at 12:45 Active Scripts Active [place] 5-325 Tablet (Acetaminophen/Hydrocodone Bitart) 1 Each Tablet 1-2 Tab PO Q4-6HRS Clindamycin Hcl 150 Mg Capsule 3 Cap PO TID Zofran Odt (Ondansetron) 4 Mg Tab.rapdis 1 Tab SL Q8HRS [Oxycodone Hcl/Acetaminophen] 1 TAB Tablet 1 Tab PO PRN Q4HRS PRN [Loperamide Hcl] 2 MG Capsule 2 Mg PO BID Reported Victoza 3-Sp (Liraglutide) 0.6 Mg/0.1 Ml Pen.injctr 1.8 Mg SQ HS Levothyroxine Sodium 75 Mcg Tablet 1 Tab PO DAILY Abilify (Aripiprazole) 5 Mg Tablet 5 Mg PO DAILY Cymbalta (Duloxetine Hcl) 60 Mg Capsule. 1 Cap PO DAILY Metformin Hcl 1,000 Mg Tablet 1 Tab PO BID Vitals/I & O Vital Sign - Last 24 Hours 03/23/17 03/23/17 03/23/17 03/23/17 10:36 11:10 13:00 15:00 Temp 98.7 98.2 98.7 98.2 Pulse 96 104 Resp 20 20 B/P (MAP) 118/72 (87) 117/73 (88) Pulse Ox 96 92 98 O2 Delivery Room Air Room Air Room Air Room Air 03/23/17 03/23/17 03/23/1727/17 15:44 17:56 18:36 19:00 Temp 99.2 99.2 Pulse 106 Resp 20 B/P (MAP) 113/80 (91) Pulse Ox 96 O2 Delivery Room Air Room Air Room Air Room Air 03/23/17 03/23/17 03/23/17 03/24/17 20:24 20:30 23:00 00:12 Temp 98.1 98.1 Pulse 111 Resp 18 18 18 B/P (MAP) 119/74 (89) Pulse Ox 96 O2 Delivery Room Air Room Air Room Air Room Air 03/24/17 03/24/17 03/24/17 03/24/17 03:00 04:11 04:43 07:00 Temp 98.7 98.9 98.7 98.9 Pulse 108 111 Resp 20 18 16 20 B/P (MAP) 119/76 (90) 122/85 (97) Pulse Ox 93 O2 Delivery Room Air Nasal Cannula Room Air O2 Flow Rate 94.0 03/24/17 03/24/17 03/24/17 07:00 07:16 08:03 O2 Delivery Room Air Room Air Room Air Intake and Output 03/23/17 03/23/17 03/24/17 15:00 23:00 07:00 Intake Total 0 ml 0 ml Output Total 1800 ml 1050 ml Balance -1800 ml -1050 ml Images AAS this am with pretty well decompressed small bowel. NG past stomach. Assessment SBO, not clinically resolved. Plan of Care: Continue current Tx, Mgmt Plan of Care Note If not clear resolution next 24 hours, would consider operative intervention. JENNIFER NUNEZ MD March 24, 2017 09:50
[2017-03-24 11:00] VITALS: BP 114/75
--- NOTE | 2017-03-24 11:21 | PDOC ---
SURGICAL PROGRESS NOTE Subjective Pain a little better, no BM Vital Signs Vital Signs Date Time Temp Pulse Resp B/P (MAP) Pulse Ox O2 Delivery O2 Flow Rate FiO2 03/24/17 11:00 98.9 109 18 114/75 (88) 95 Room Air 98.9 03/24/17 07:00 94.0 I&O Intake and Output 03/24/17 06:59 Intake Total 0 ml Output Total 2850 ml Balance -2850 ml Intake Oral 0 ml Output Gastric Drainage Total 1800 ml Drainage Total 1050 ml # Voids 2 General: Alert, Oriented X3, Cooperative, mild distress Abdomen: Normal bowel sounds, Soft, Other (mildly TTP diffusely) Labs Laboratory Tests Test 03/22/17 12:01 03/22/17 12:15 03/22/17 16:50 03/22/17 21:15 Glucose (Fingerstick) 105 mg/dL (70-99) 89 mg/dL (70-99) 77 mg/dL (70-99) Lactic Acid Level 1.3 mmol/L (0.4-2.0) Test 03/23/17 04:00 03/23/17 07:27 03/23/17 11:46 03/23/17 16:58 White Blood Count 7.7 x10^3/uL (4.0-11.0) Red Blood Count 3.88 x10^6/uL (3.50-5.40) Hemoglobin 11.3 g/dL (12.0-15.5) Hematocrit 34.3 % (36.0-47.0) Mean Corpuscular Volume 89 fL (79-100) Mean Corpuscular Hemoglobin 29 pg (25-35) Mean Corpuscular Hemoglobin Concent 33 g/dL (31-37) Red Cell Distribution Width 15.5 % (11.5-14.5) Platelet Count 323 x10^3/uL (140-400) Neutrophils (%) (Auto) 68 % (31-73) Lymphocytes (%) (Auto) 25 % (24-48) Monocytes (%) (Auto) 4 % (0-9) Eosinophils (%) (Auto) 2 % (0-3) Basophils (%) (Auto) 1 % (0-3) Neutrophils # (Auto) 5.3 x10^3uL (1.8-7.7) Lymphocytes # (Auto) 2.0 x10^3/uL (1.0-4.8) Monocytes # (Auto) 0.3 x10^3/uL (0.0-1.1) Eosinophils # (Auto) 0.2 x10^3/uL (0.0-0.7) Basophils # (Auto) 0.0 x10^3/uL (0.0-0.2) Sodium Level 142 mmol/L (136-145) Potassium Level 3.9 mmol/L (3.5-5.1) Chloride Level 109 mmol/L (98-107) Carbon Dioxide Level 24 mmol/L (21-32) Anion Gap 9 (6-14) Blood Urea Nitrogen 12 mg/dL (7-20) Creatinine 0.7 mg/dL (0.6-1.0) Estimated GFR (Cockcroft-Gault) 95.8 Glucose Level 108 mg/dL (70-99) Calcium Level 8.2 mg/dL (8.5-10.1) Glucose (Fingerstick) 120 mg/dL (70-99) 98 mg/dL (70-99) 120 mg/dL (70-99) Test 03/23/17 20:34 03/24/17 04:05 03/24/17 07:07 03/24/17 11:00 Glucose (Fingerstick) 112 mg/dL (70-99) 123 mg/dL (70-99) 123 mg/dL (70-99) White Blood Count 11.5 x10^3/uL (4.0-11.0) Red Blood Count 3.97 x10^6/uL (3.50-5.40) Hemoglobin 11.4 g/dL (12.0-15.5) Hematocrit 35.1 % (36.0-47.0) Mean Corpuscular Volume 89 fL (79-100) Mean Corpuscular Hemoglobin 29 pg (25-35) Mean Corpuscular Hemoglobin Concent 33 g/dL (31-37) Red Cell Distribution Width 15.4 % (11.5-14.5) Platelet Count 323 x10^3/uL (140-400) Neutrophils (%) (Auto) 75 % (31-73) Lymphocytes (%) (Auto) 18 % (24-48) Monocytes (%) (Auto) 5 % (0-9) Eosinophils (%) (Auto) 1 % (0-3) Basophils (%) (Auto) 1 % (0-3) Neutrophils # (Auto) 8.7 x10^3uL (1.8-7.7) Lymphocytes # (Auto) 2.1 x10^3/uL (1.0-4.8) Monocytes # (Auto) 0.5 x10^3/uL (0.0-1.1) Eosinophils # (Auto) 0.1 x10^3/uL (0.0-0.7) Basophils # (Auto) 0.1 x10^3/uL (0.0-0.2) Sodium Level 140 mmol/L (136-145) Potassium Level 4.3 mmol/L (3.5-5.1) Chloride Level 105 mmol/L (98-107) Carbon Dioxide Level 25 mmol/L (21-32) Anion Gap 10 (6-14) Blood Urea Nitrogen 11 mg/dL (7-20) Creatinine 0.5 mg/dL (0.6-1.0) Estimated GFR (Cockcroft-Gault) 141.2 Glucose Level 114 mg/dL (70-99) Calcium Level 9.0 mg/dL (8.5-10.1) Amylase Level 53 U/L (25-115) Lipase 489 U/L (73-393) Laboratory Tests Test 03/23/17 11:46 03/23/17 16:58 03/23/17 20:34 03/24/17 04:05 Glucose (Fingerstick) 98 mg/dL (70-99) 120 mg/dL (70-99) 112 mg/dL (70-99) White Blood Count 11.5 x10^3/uL (4.0-11.0) Red Blood Count 3.97 x10^6/uL (3.50-5.40) Hemoglobin 11.4 g/dL (12.0-15.5) Hematocrit 35.1 % (36.0-47.0) Mean Corpuscular Volume 89 fL (79-100) Mean Corpuscular Hemoglobin 29 pg (25-35) Mean Corpuscular Hemoglobin Concent 33 g/dL (31-37) Red Cell Distribution Width 15.4 % (11.5-14.5) Platelet Count 323 x10^3/uL (140-400) Neutrophils (%) (Auto) 75 % (31-73) Lymphocytes (%) (Auto) 18 % (24-48) Monocytes (%) (Auto) 5 % (0-9) Eosinophils (%) (Auto) 1 % (0-3) Basophils (%) (Auto) 1 % (0-3) Neutrophils # (Auto) 8.7 x10^3uL (1.8-7.7) Lymphocytes # (Auto) 2.1 x10^3/uL (1.0-4.8) Monocytes # (Auto) 0.5 x10^3/uL (0.0-1.1) Eosinophils # (Auto) 0.1 x10^3/uL (0.0-0.7) Basophils # (Auto) 0.1 x10^3/uL (0.0-0.2) Sodium Level 140 mmol/L (136-145) Potassium Level 4.3 mmol/L (3.5-5.1) Chloride Level 105 mmol/L (98-107) Carbon Dioxide Level 25 mmol/L (21-32) Anion Gap 10 (6-14) Blood Urea Nitrogen 11 mg/dL (7-20) Creatinine 0.5 mg/dL (0.6-1.0) Estimated GFR (Cockcroft-Gault) 141.2 Glucose Level 114 mg/dL (70-99) Calcium Level 9.0 mg/dL (8.5-10.1) Amylase Level 53 U/L (25-115) Lipase 489 U/L (73-393) Test 03/24/17 07:07 03/24/17 11:00 Glucose (Fingerstick) 123 mg/dL (70-99) 123 mg/dL (70-99) I have reviewed the following Abd films do not show an obstructive bowel gas pattern Assessment/Plan Abd pain with NGT output, no BM after several days of diarrhea Will obtain SBFT for further evaluation Problems: WILLIE HAYNES MD March 24, 2017 11:21
[2017-03-24] MEDS ORDERED: IOHEXOL 350 MG/ML 100 ML VIAL. IJ ONE (11:30)
--- NOTE | 2017-03-24 12:50 | RAD ---
EXAM: Small bowel follow-through exam. HISTORY: Small bowel obstruction. TECHNIQUE: Overhead images of the abdomen were obtained following the oral administration of barium contrast. Images were obtained at 0 and 20 minutes. Fluoroscopic spot images were obtained at the conclusion of the exam. The total fluoroscopy time was 0.1 minute. 5 fluoroscopic images were obtained. COMPARISON: Radiographs obtained on the same date. FINDINGS: There is a rapid small bowel and large bowel transit time of less than 20 minutes. There is contrast within the rectum within this time interval. There is a nasogastric tube within the proximal duodenum. No abnormally thickened or dilated loop of bowel is seen. There is no suspicious mucosal lesion. There is no stricture or fistula. The appendix is obscured due to overlying small bowel loops. There are cholecystectomy clips. IMPRESSION: Rapid small and large bowel transit time of less than 20 minutes. Otherwise, unremarkable small bowel follow-through exam.
--- NOTE | 2017-03-24 13:18 | PDOC ---
PROGRESS NOTES Chief Complaint Chief Complaint Possible SBO H/o previous SBO DM Hypothyroidism Bipolar disorder Depression Cholecystectomy D&Cs Endometrial ablation Cystoscopy History of Present Illness History of Present Illness Patient was being taken to get SBFT when seen this AM NG tube in place States she still has some upper abdominal tenderness Has not had a bowel movement Vitals Vitals Vital Signs Date Time Temp Pulse Resp B/P (MAP) Pulse Ox O2 Delivery O2 Flow Rate FiO2 03/24/17 12:42 Room Air 03/24/17 11:00 98.9 109 18 114/75 (88) 95 98.9 03/24/17 07:00 94.0 Physical Exam General: Alert, Oriented X3, Cooperative, mild distress Heart: Regular rate, Normal S1, Normal S2 Lungs: Clear, Other (no wheezing) Abdomen: Normal bowel sounds, Soft, Other (mildly TTP diffusely) Extremities: No clubbing, No cyanosis Skin: No rashes, No breakdown Labs LABS Laboratory Tests Test 03/23/17 16:58 03/23/17 20:34 03/24/17 04:05 03/24/17 07:07 Glucose (Fingerstick) 120 mg/dL (70-99) 112 mg/dL (70-99) 123 mg/dL (70-99) White Blood Count 11.5 x10^3/uL (4.0-11.0) Red Blood Count 3.97 x10^6/uL (3.50-5.40) Hemoglobin 11.4 g/dL (12.0-15.5) Hematocrit 35.1 % (36.0-47.0) Mean Corpuscular Volume 89 fL (79-100) Mean Corpuscular Hemoglobin 29 pg (25-35) Mean Corpuscular Hemoglobin Concent 33 g/dL (31-37) Red Cell Distribution Width 15.4 % (11.5-14.5) Platelet Count 323 x10^3/uL (140-400) Neutrophils (%) (Auto) 75 % (31-73) Lymphocytes (%) (Auto) 18 % (24-48) Monocytes (%) (Auto) 5 % (0-9) Eosinophils (%) (Auto) 1 % (0-3) Basophils (%) (Auto) 1 % (0-3) Neutrophils # (Auto) 8.7 x10^3uL (1.8-7.7) Lymphocytes # (Auto) 2.1 x10^3/uL (1.0-4.8) Monocytes # (Auto) 0.5 x10^3/uL (0.0-1.1) Eosinophils # (Auto) 0.1 x10^3/uL (0.0-0.7) Basophils # (Auto) 0.1 x10^3/uL (0.0-0.2) Sodium Level 140 mmol/L (136-145) Potassium Level 4.3 mmol/L (3.5-5.1) Chloride Level 105 mmol/L (98-107) Carbon Dioxide Level 25 mmol/L (21-32) Anion Gap 10 (6-14) Blood Urea Nitrogen 11 mg/dL (7-20) Creatinine 0.5 mg/dL (0.6-1.0) Estimated GFR (Cockcroft-Gault) 141.2 Glucose Level 114 mg/dL (70-99) Calcium Level 9.0 mg/dL (8.5-10.1) Amylase Level 53 U/L (25-115) Lipase 489 U/L (73-393) Test 03/24/17 11:00 Glucose (Fingerstick) 123 mg/dL (70-99) Review of Systems Review of Systems General: c/o weakness GI: c/o abd tenderness, denies V/D/C Assessment and Plan Assessmemt and Plan Assessment: Possible SBO H/o previous SBO DM Hypothyroidism Bipolar disorder Depression Cholecystectomy D&Cs Endometrial ablation Cystoscopy Plan: -GI following- continue NG suction, consider operative treatment if no improvement in 24 hrs -Surgery following- obtaining SBFT -SBFT results pending -Monitor NG output -Recheck AM labs -Subspecialist input appreciated -Discharge disposition pending Problems: Comment Review of Relevant I have reviewed the following items chivo (where applicable) has been applied. Labs Laboratory Tests Test 03/22/17 16:50 03/22/17 21:15 03/23/17 04:00 03/23/17 07:27 Glucose (Fingerstick) 89 mg/dL (70-99) 77 mg/dL (70-99) 120 mg/dL (70-99) White Blood Count 7.7 x10^3/uL (4.0-11.0) Red Blood Count 3.88 x10^6/uL (3.50-5.40) Hemoglobin 11.3 g/dL (12.0-15.5) Hematocrit 34.3 % (36.0-47.0) Mean Corpuscular Volume 89 fL (79-100) Mean Corpuscular Hemoglobin 29 pg (25-35) Mean Corpuscular Hemoglobin Concent 33 g/dL (31-37) Red Cell Distribution Width 15.5 % (11.5-14.5) Platelet Count 323 x10^3/uL (140-400) Neutrophils (%) (Auto) 68 % (31-73) Lymphocytes (%) (Auto) 25 % (24-48) Monocytes (%) (Auto) 4 % (0-9) Eosinophils (%) (Auto) 2 % (0-3) Basophils (%) (Auto) 1 % (0-3) Neutrophils # (Auto) 5.3 x10^3uL (1.8-7.7) Lymphocytes # (Auto) 2.0 x10^3/uL (1.0-4.8) Monocytes # (Auto) 0.3 x10^3/uL (0.0-1.1) Eosinophils # (Auto) 0.2 x10^3/uL (0.0-0.7) Basophils # (Auto) 0.0 x10^3/uL (0.0-0.2) Sodium Level 142 mmol/L (136-145) Potassium Level 3.9 mmol/L (3.5-5.1) Chloride Level 109 mmol/L (98-107) Carbon Dioxide Level 24 mmol/L (21-32) Anion Gap 9 (6-14) Blood Urea Nitrogen 12 mg/dL (7-20) Creatinine 0.7 mg/dL (0.6-1.0) Estimated GFR (Cockcroft-Gault) 95.8 Glucose Level 108 mg/dL (70-99) Calcium Level 8.2 mg/dL (8.5-10.1) Test 03/23/17 11:46 03/23/17 16:58 03/23/17 20:34 03/24/17 04:05 Glucose (Fingerstick) 98 mg/dL (70-99) 120 mg/dL (70-99) 112 mg/dL (70-99) White Blood Count 11.5 x10^3/uL (4.0-11.0) Red Blood Count 3.97 x10^6/uL (3.50-5.40) Hemoglobin 11.4 g/dL (12.0-15.5) Hematocrit 35.1 % (36.0-47.0) Mean Corpuscular Volume 89 fL (79-100) Mean Corpuscular Hemoglobin 29 pg (25-35) Mean Corpuscular Hemoglobin Concent 33 g/dL (31-37) Red Cell Distribution Width 15.4 % (11.5-14.5) Platelet Count 323 x10^3/uL (140-400) Neutrophils (%) (Auto) 75 % (31-73) Lymphocytes (%) (Auto) 18 % (24-48) Monocytes (%) (Auto) 5 % (0-9) Eosinophils (%) (Auto) 1 % (0-3) Basophils (%) (Auto) 1 % (0-3) Neutrophils # (Auto) 8.7 x10^3uL (1.8-7.7) Lymphocytes # (Auto) 2.1 x10^3/uL (1.0-4.8) Monocytes # (Auto) 0.5 x10^3/uL (0.0-1.1) Eosinophils # (Auto) 0.1 x10^3/uL (0.0-0.7) Basophils # (Auto) 0.1 x10^3/uL (0.0-0.2) Sodium Level 140 mmol/L (136-145) Potassium Level 4.3 mmol/L (3.5-5.1) Chloride Level 105 mmol/L (98-107) Carbon Dioxide Level 25 mmol/L (21-32) Anion Gap 10 (6-14) Blood Urea Nitrogen 11 mg/dL (7-20) Creatinine 0.5 mg/dL (0.6-1.0) Estimated GFR (Cockcroft-Gault) 141.2 Glucose Level 114 mg/dL (70-99) Calcium Level 9.0 mg/dL (8.5-10.1) Amylase Level 53 U/L (25-115) Lipase 489 U/L (73-393) Test 03/24/17 07:07 03/24/17 11:00 Glucose (Fingerstick) 123 mg/dL (70-99) 123 mg/dL (70-99) Laboratory Tests Test 03/23/17 16:58 03/23/17 20:34 03/24/17 04:05 03/24/17 07:07 Glucose (Fingerstick) 120 mg/dL (70-99) 112 mg/dL (70-99) 123 mg/dL (70-99) White Blood Count 11.5 x10^3/uL (4.0-11.0) Red Blood Count 3.97 x10^6/uL (3.50-5.40) Hemoglobin 11.4 g/dL (12.0-15.5) Hematocrit 35.1 % (36.0-47.0) Mean Corpuscular Volume 89 fL (79-100) Mean Corpuscular Hemoglobin 29 pg (25-35) Mean Corpuscular Hemoglobin Concent 33 g/dL (31-37) Red Cell Distribution Width 15.4 % (11.5-14.5) Platelet Count 323 x10^3/uL (140-400) Neutrophils (%) (Auto) 75 % (31-73) Lymphocytes (%) (Auto) 18 % (24-48) Monocytes (%) (Auto) 5 % (0-9) Eosinophils (%) (Auto) 1 % (0-3) Basophils (%) (Auto) 1 % (0-3) Neutrophils # (Auto) 8.7 x10^3uL (1.8-7.7) Lymphocytes # (Auto) 2.1 x10^3/uL (1.0-4.8) Monocytes # (Auto) 0.5 x10^3/uL (0.0-1.1) Eosinophils # (Auto) 0.1 x10^3/uL (0.0-0.7) Basophils # (Auto) 0.1 x10^3/uL (0.0-0.2) Sodium Level 140 mmol/L (136-145) Potassium Level 4.3 mmol/L (3.5-5.1) Chloride Level 105 mmol/L (98-107) Carbon Dioxide Level 25 mmol/L (21-32) Anion Gap 10 (6-14) Blood Urea Nitrogen 11 mg/dL (7-20) Creatinine 0.5 mg/dL (0.6-1.0) Estimated GFR (Cockcroft-Gault) 141.2 Glucose Level 114 mg/dL (70-99) Calcium Level 9.0 mg/dL (8.5-10.1) Amylase Level 53 U/L (25-115) Lipase 489 U/L (73-393) Test 03/24/17 11:00 Glucose (Fingerstick) 123 mg/dL (70-99) Medications Current Medications Ondansetron HCl (Zofran) 4 mg PRN Q6HRS PRN IV NAUSEA/VOMITING Last administered on 03/24/17 04:20; Start 03/22/17 at 07:45 Fentanyl Citrate (Fentanyl 2ml Vial) 50 mcg PRN Q2HR PRN IV PAIN Last administered on 03/24/17 07:16; Start 03/22/17 at 07:45 Pantoprazole Sodium (Protonix Vial) 40 mg DAILYAC IVP Last administered on 03/24 07:16; Start 03/22/17 at 08:00 Sodium Chloride 1,000 ml @ 100 mls/hr Q10H IV Last administered on 03/23/17 04:28; Start 03/22/17 at 07:45; Stop 03/23/17 at 13:07; Status DC Fentanyl Citrate (Fentanyl 2ml Vial) 75 mcg PRN Q2HR PRN IV MODERATE PAIN Last administered on 03/24/17 12:42; Start 03/22/17 at 12:30 Metoclopramide HCl (Reglan) 10 mg PRN Q6HRS PRN IV NAUSEA/VOMITING Last administered on 03/24/17 11:48; Start 03/22/17 at 13:00 Throat Lozenges (Chloraseptic) 1 spray PRN Q2HR PRN PO SORE THROAT Last administered on 03/22/17 21:03; Start 03/22/17 at 18:45 Lorazepam (Ativan) 0.5 mg PRN BID PRN IV ANXIETY / AGITATION Last administered on 03/23/17 21:21; Start 03/22/17 at 20:30 Amino Acids/ Glycerin/ Electrolytes 1,000 ml @ 75 mls/hr [id number] IV Last administered on 03/24/17 00:11; Start 5/27/17 at 12:45 Iohexol (Omnipaque 350 Mg/ml) 400 ml 1X ONCE IJ Last administered on t 12:10; Start 03/24/17 at 11:30; Stop 03/24/17 at 11:31; Status DC Active Scripts Active [facility] 5-325 Tablet (Acetaminophen/Hydrocodone Bitart) 1 Each Tablet 1-2 Tab PO Q4-6HRS Clindamycin Hcl 150 Mg Capsule 3 Cap PO TID Zofran Odt (Ondansetron) 4 Mg Tab.rapdis 1 Tab SL Q8HRS [Oxycodone Hcl/Acetaminophen] 1 TAB Tablet 1 Tab PO PRN Q4HRS PRN [Loperamide Hcl] 2 MG Capsule 2 Mg PO BID Reported Victoza 3-Sp (Liraglutide) 0.6 Mg/0.1 Ml Pen.injctr 1.8 Mg SQ HS Levothyroxine Sodium 75 Mcg Tablet 1 Tab PO DAILY Abilify (Aripiprazole) 5 Mg Tablet 5 Mg PO DAILY Cymbalta (Duloxetine Hcl) 60 Mg Capsule. 1 Cap PO DAILY Metformin Hcl 1,000 Mg Tablet 1 Tab PO BID Vitals/I & O Vital Sign - Last 24 Hours 03/23/17 03/23/17 03/23/17 03/23/17 15:00 15:44 17:56 19:00 Temp 98.2 99.2 98.2 99.2 Pulse 104 106 Resp 20 20 B/P (MAP) 117/73 (88) 113/80 (91) Pulse Ox 98 96 O2 Delivery Room Air Room Air Room Air Room Air 03/23/17 03/23/17 03/23/17 03/24/17 20:24 20:30 23:00 00:12 Temp 98.1 98.1 Pulse 111 Resp 18 18 18 B/P (MAP) 119/74 (89) Pulse Ox 96 O2 Delivery Room Air Room Air Room Air Room Air 03/24/17 03/24/17 03/24/17 03/24/17 03:00 04:11 04:43 07:00 Temp 98.7 98.9 98.7 98.9 Pulse 108 111 Resp 20 18 16 20 B/P (MAP) 119/76 (90) 122/85 (97) Pulse Ox 93 O2 Delivery Room Air Nasal Cannula Room Air O2 Flow Rate 94.0 03/24/17 03/24/17 03/24/17 03/24/17 07:00 07:16 08:03 10:35 O2 Delivery Room Air Room Air Room Air Room Air 03/24/17 03/24/17 03/24/17 11:00 11:48 12:42 Temp 98.9 98.9 Pulse 109 Resp 18 B/P (MAP) 114/75 (88) Pulse Ox 95 O2 Delivery Room Air Room Air Room Air Intake and Output 03/23/17 03/23/17 03/24/17 15:00 23:00 07:00 Intake Total 0 ml 0 ml Output Total 1800 ml 1050 ml Balance -1800 ml -1050 ml AMILCAR DESAI III DO March 24, 2017 13:18
[2017-03-24 15:00] VITALS: BP 117/80
[2017-03-24 19:00] VITALS: BP 113/78
[2017-03-24 23:00] VITALS: BP 113/78
[2017-03-25] MEDS: AMINO AC 3%/ELECTROLYTE/GLYCER 1,000 ML IV SCH (02:41)
[2017-03-25] MEDS: fentaNYL PF VIAL 100 MCG/2 ML VIAL IV PRN ×4 (02:42→11:02)
[2017-03-25 03:06] VITALS: BP 104/68
[2017-03-25 07:00] VITALS: BP 118/79
[2017-03-25] MEDS: PANTOPRAZOLE IV PUSH 40 MG VIAL. IVP SCH (07:01)
[2017-03-25] MEDS: ONDANSETRON PF 4 MG/2 ML VIAL. IV PRN (07:01)
--- NOTE | 2017-03-25 08:38 | PDOC ---
SURGICAL PROGRESS NOTE Subjective Having a lot of loose stools. No nausea Vital Signs Vital Signs Date Time Temp Pulse Resp B/P (MAP) Pulse Ox O2 Delivery O2 Flow Rate FiO2 03/25/17 07:38 Room Air 03/25/17 07:00 98.3 117 18 118/79 (92) 96 98.3 03/25/17 02:42 9.0 I&O Intake and Output 03/25/17 07:00 Intake Total 649 ml Output Total 650 ml Balance -1 ml Intake Oral 0 ml IV Total 649 ml Output Gastric Drainage Total 650 ml # Voids 6 # Bowel Movements 7 PATIENT HAS A CHAVEZ: No General: Alert, Oriented X3, Cooperative, mild distress Abdomen: Normal bowel sounds, Soft, No tenderness Labs Laboratory Tests Test 03/23/17 11:46 03/23/17 16:58 03/23/17 20:34 03/24/17 04:05 Glucose (Fingerstick) 98 mg/dL (70-99) 120 mg/dL (70-99) 112 mg/dL (70-99) White Blood Count 11.5 x10^3/uL (4.0-11.0) Red Blood Count 3.97 x10^6/uL (3.50-5.40) Hemoglobin 11.4 g/dL (12.0-15.5) Hematocrit 35.1 % (36.0-47.0) Mean Corpuscular Volume 89 fL (79-100) Mean Corpuscular Hemoglobin 29 pg (25-35) Mean Corpuscular Hemoglobin Concent 33 g/dL (31-37) Red Cell Distribution Width 15.4 % (11.5-14.5) Platelet Count 323 x10^3/uL (140-400) Neutrophils (%) (Auto) 75 % (31-73) Lymphocytes (%) (Auto) 18 % (24-48) Monocytes (%) (Auto) 5 % (0-9) Eosinophils (%) (Auto) 1 % (0-3) Basophils (%) (Auto) 1 % (0-3) Neutrophils # (Auto) 8.7 x10^3uL (1.8-7.7) Lymphocytes # (Auto) 2.1 x10^3/uL (1.0-4.8) Monocytes # (Auto) 0.5 x10^3/uL (0.0-1.1) Eosinophils # (Auto) 0.1 x10^3/uL (0.0-0.7) Basophils # (Auto) 0.1 x10^3/uL (0.0-0.2) Sodium Level 140 mmol/L (136-145) Potassium Level 4.3 mmol/L (3.5-5.1) Chloride Level 105 mmol/L (98-107) Carbon Dioxide Level 25 mmol/L (21-32) Anion Gap 10 (6-14) Blood Urea Nitrogen 11 mg/dL (7-20) Creatinine 0.5 mg/dL (0.6-1.0) Estimated GFR (Cockcroft-Gault) 141.2 Glucose Level 114 mg/dL (70-99) Calcium Level 9.0 mg/dL (8.5-10.1) Amylase Level 53 U/L (25-115) Lipase 489 U/L (73-393) Test 03/24/17 07:07 03/24/17 11:00 03/24/17 15:50 03/24/17 20:28 Glucose (Fingerstick) 123 mg/dL (70-99) 123 mg/dL (70-99) 111 mg/dL (70-99) 115 mg/dL (70-99) Test 03/25/17 07:02 Glucose (Fingerstick) 114 mg/dL (70-99) Laboratory Tests Test 03/24/17 11:00 03/24/17 15:50 03/24/17 20:28 03/25/17 07:02 Glucose (Fingerstick) 123 mg/dL (70-99) 111 mg/dL (70-99) 115 mg/dL (70-99) 114 mg/dL (70-99) I have reviewed the following SBFT very rapid transit through small bowel to colon no signs of obstruction or strictures Assessment/Plan Diarrhea, no evidence of obstruction No surgical indications Problems: WILLIE HAYNES MD March 25, 2017 08:38
[2017-03-25 09:11] LABS: BASO % 1 % (0-3); EOS % 1 % (0-3); HEMATOCRIT 37.6 % (36.0-47.0); HEMOGLOBIN 12.7 g/dL (12.0-15.5); LYMPH # 1.7 x10^3/uL (1.0-4.8); LYMPH % 18 % (24-48); MEAN CORPUSCULAR HEMOGLOBIN 29 pg (25-35); MEAN CORPUSCULAR HGB CONC 34 g/dL (31-37); MEAN CORPUSCULAR VOLUME 87 fL (79-100); MONO % 4 % (0-9); NEUT % 76 % (31-73); PLATELET COUNT 341 x10^3/uL (140-400); RED BLOOD COUNT 4.33 x10^6/uL (3.50-5.40); RED CELL DISTRIBUTION WIDTH 15.1 % (11.5-14.5); WHITE BLOOD COUNT 9.7 x10^3/uL (4.0-11.0)
[2017-03-25 09:31] LABS: CALCIUM 9.3 mg/dL (8.5-10.1); CREATININE 0.7 mg/dL (0.6-1.0); GFR 95.8; POTASSIUM 4.4 mmol/L (3.5-5.1)
--- NOTE | 2017-03-25 10:21 | PDOC ---
G I PROGRESS NOTE Subjective Still some abdominal pain, but overall feeling better. Multiple stools after contrast for SBFT. Physical Exam Lungs clear. RRR Abdomen soft, only mildly tender. Normal bowel sounds today. Review of Relevant I have reviewed the following items chivo (where applicable) has been applied. Labs Laboratory Tests Test 03/23/17 11:46 03/23/17 16:58 03/23/17 20:34 03/24/17 04:05 Glucose (Fingerstick) 98 mg/dL (70-99) 120 mg/dL (70-99) 112 mg/dL (70-99) White Blood Count 11.5 x10^3/uL (4.0-11.0) Red Blood Count 3.97 x10^6/uL (3.50-5.40) Hemoglobin 11.4 g/dL (12.0-15.5) Hematocrit 35.1 % (36.0-47.0) Mean Corpuscular Volume 89 fL (79-100) Mean Corpuscular Hemoglobin 29 pg (25-35) Mean Corpuscular Hemoglobin Concent 33 g/dL (31-37) Red Cell Distribution Width 15.4 % (11.5-14.5) Platelet Count 323 x10^3/uL (140-400) Neutrophils (%) (Auto) 75 % (31-73) Lymphocytes (%) (Auto) 18 % (24-48) Monocytes (%) (Auto) 5 % (0-9) Eosinophils (%) (Auto) 1 % (0-3) Basophils (%) (Auto) 1 % (0-3) Neutrophils # (Auto) 8.7 x10^3uL (1.8-7.7) Lymphocytes # (Auto) 2.1 x10^3/uL (1.0-4.8) Monocytes # (Auto) 0.5 x10^3/uL (0.0-1.1) Eosinophils # (Auto) 0.1 x10^3/uL (0.0-0.7) Basophils # (Auto) 0.1 x10^3/uL (0.0-0.2) Sodium Level 140 mmol/L (136-145) Potassium Level 4.3 mmol/L (3.5-5.1) Chloride Level 105 mmol/L (98-107) Carbon Dioxide Level 25 mmol/L (21-32) Anion Gap 10 (6-14) Blood Urea Nitrogen 11 mg/dL (7-20) Creatinine 0.5 mg/dL (0.6-1.0) Estimated GFR (Cockcroft-Gault) 141.2 Glucose Level 114 mg/dL (70-99) Calcium Level 9.0 mg/dL (8.5-10.1) Amylase Level 53 U/L (25-115) Lipase 489 U/L (73-393) Test 03/24/17 07:07 03/24/17 11:00 03/24/17 15:50 03/24/17 20:28 Glucose (Fingerstick) 123 mg/dL (70-99) 123 mg/dL (70-99) 111 mg/dL (70-99) 115 mg/dL (70-99) Test 03/25/17 07:02 03/25/17 09:00 Glucose (Fingerstick) 114 mg/dL (70-99) White Blood Count 9.7 x10^3/uL (4.0-11.0) Red Blood Count 4.33 x10^6/uL (3.50-5.40) Hemoglobin 12.7 g/dL (12.0-15.5) Hematocrit 37.6 % (36.0-47.0) Mean Corpuscular Volume 87 fL (79-100) Mean Corpuscular Hemoglobin 29 pg (25-35) Mean Corpuscular Hemoglobin Concent 34 g/dL (31-37) Red Cell Distribution Width 15.1 % (11.5-14.5) Platelet Count 341 x10^3/uL (140-400) Neutrophils (%) (Auto) 76 % (31-73) Lymphocytes (%) (Auto) 18 % (24-48) Monocytes (%) (Auto) 4 % (0-9) Eosinophils (%) (Auto) 1 % (0-3) Basophils (%) (Auto) 1 % (0-3) Neutrophils # (Auto) 7.4 x10^3uL (1.8-7.7) Lymphocytes # (Auto) 1.7 x10^3/uL (1.0-4.8) Monocytes # (Auto) 0.4 x10^3/uL (0.0-1.1) Eosinophils # (Auto) 0.1 x10^3/uL (0.0-0.7) Basophils # (Auto) 0.0 x10^3/uL (0.0-0.2) Sodium Level 140 mmol/L (136-145) Potassium Level 4.4 mmol/L (3.5-5.1) Chloride Level 103 mmol/L (98-107) Carbon Dioxide Level 26 mmol/L (21-32) Anion Gap 11 (6-14) Blood Urea Nitrogen 17 mg/dL (7-20) Creatinine 0.7 mg/dL (0.6-1.0) Estimated GFR (Cockcroft-Gault) 95.8 Glucose Level 123 mg/dL (70-99) Calcium Level 9.3 mg/dL (8.5-10.1) Laboratory Tests Test 03/24/17 11:00 03/24/17 15:50 03/24/17 20:28 03/25/17 07:02 Glucose (Fingerstick) 123 mg/dL (70-99) 111 mg/dL (70-99) 115 mg/dL (70-99) 114 mg/dL (70-99) Test 03/25/17 09:00 White Blood Count 9.7 x10^3/uL (4.0-11.0) Red Blood Count 4.33 x10^6/uL (3.50-5.40) Hemoglobin 12.7 g/dL (12.0-15.5) Hematocrit 37.6 % (36.0-47.0) Mean Corpuscular Volume 87 fL (79-100) Mean Corpuscular Hemoglobin 29 pg (25-35) Mean Corpuscular Hemoglobin Concent 34 g/dL (31-37) Red Cell Distribution Width 15.1 % (11.5-14.5) Platelet Count 341 x10^3/uL (140-400) Neutrophils (%) (Auto) 76 % (31-73) Lymphocytes (%) (Auto) 18 % (24-48) Monocytes (%) (Auto) 4 % (0-9) Eosinophils (%) (Auto) 1 % (0-3) Basophils (%) (Auto) 1 % (0-3) Neutrophils # (Auto) 7.4 x10^3uL (1.8-7.7) Lymphocytes # (Auto) 1.7 x10^3/uL (1.0-4.8) Monocytes # (Auto) 0.4 x10^3/uL (0.0-1.1) Eosinophils # (Auto) 0.1 x10^3/uL (0.0-0.7) Basophils # (Auto) 0.0 x10^3/uL (0.0-0.2) Sodium Level 140 mmol/L (136-145) Potassium Level 4.4 mmol/L (3.5-5.1) Chloride Level 103 mmol/L (98-107) Carbon Dioxide Level 26 mmol/L (21-32) Anion Gap 11 (6-14) Blood Urea Nitrogen 17 mg/dL (7-20) Creatinine 0.7 mg/dL (0.6-1.0) Estimated GFR (Cockcroft-Gault) 95.8 Glucose Level 123 mg/dL (70-99) Calcium Level 9.3 mg/dL (8.5-10.1) Medications Current Medications Ondansetron HCl (Zofran) 4 mg PRN Q6HRS PRN IV NAUSEA/VOMITING Last administered on 03/25/17 07:01; Start 03/22/17 at 07:45 Fentanyl Citrate (Fentanyl 2ml Vial) 50 mcg PRN Q2HR PRN IV PAIN Last administered on 03/24/17 07:16; Start 03/22/17 at 07:45 Pantoprazole Sodium (Protonix Vial) 40 mg DAILYAC IVP Last administered on 03/25 07:01; Start 03/22/17 at 08:00 Sodium Chloride 1,000 ml @ 100 mls/hr Q10H IV Last administered on 03/23/17 04:28; Start 03/22/17 at 07:45; Stop 03/23/17 at 13:07; Status DC Fentanyl Citrate (Fentanyl 2ml Vial) 75 mcg PRN Q2HR PRN IV MODERATE PAIN Last administered on 03/25/17 09:02; Start 03/22/17 at 12:30 Metoclopramide HCl (Reglan) 10 mg PRN Q6HRS PRN IV NAUSEA/VOMITING Last administered on 03/24/17 18:31; Start 03/22/17 at 13:00 Throat Lozenges (Chloraseptic) 1 spray PRN Q2HR PRN PO SORE THROAT Last administered on 03/22/17 21:03; Start 03/22/17 at 18:45 Lorazepam (Ativan) 0.5 mg PRN BID PRN IV ANXIETY / AGITATION Last administered on 03/24/17 20:01; Start 03/22/17 at 20:30 Amino Acids/ Glycerin/ Electrolytes 1,000 ml @ 75 mls/hr [id number] IV Last administered on 03/25/17 02:41; Start 03/23/17 at 12:45 Iohexol (Omnipaque 350 Mg/ml) 400 ml 1X ONCE IJ Last administered on 12:10; Start 03/24/17 at 11:30; Stop 03/24/17 at 11:31; Status DC Active Scripts Active [place] 5-325 Tablet (Acetaminophen/Hydrocodone Bitart) 1 Each Tablet 1-2 Tab PO Q4-6HRS Clindamycin Hcl 150 Mg Capsule 3 Cap PO TID Zofran Odt (Ondansetron) 4 Mg Tab.rapdis 1 Tab SL Q8HRS [Oxycodone Hcl/Acetaminophen] 1 TAB Tablet 1 Tab PO PRN Q4HRS PRN [Loperamide Hcl] 2 MG Capsule 2 Mg PO BID Reported Victoza 3-Sp (Liraglutide) 0.6 Mg/0.1 Ml Pen.injctr 1.8 Mg SQ HS Levothyroxine Sodium 75 Mcg Tablet 1 Tab PO DAILY Abilify (Aripiprazole) 5 Mg Tablet 5 Mg PO DAILY Cymbalta (Duloxetine Hcl) 60 Mg Capsule. 1 Cap PO DAILY Metformin Hcl 1,000 Mg Tablet 1 Tab PO BID Vitals/I & O Vital Sign - Last 24 Hours 03/24/17 03/24/17 03/24/17 03/24/17 10:35 11:00 12:42 15:00 Temp 98.9 98.5 98.9 98.5 Pulse 109 108 Resp 18 20 B/P (MAP) 114/75 (88) 117/80 (92) Pulse Ox 95 95 O2 Delivery Room Air Room Air Room Air Room Air 03/24/17 03/24/17 03/24/17 03/24/17 15:11 17:51 19:00 19:37 Temp 98.7 98.7 Pulse 98 Resp 20 B/P (MAP) 113/78 (90) Pulse Ox 96 O2 Delivery Room Air Room Air Room Air Room Air O2 Flow Rate 94.0 03/24/17 03/24/17 03/25/17 03/25/17 19:57 23:00 02:42 03:06 Temp 97.3 97.3 Pulse 97 Resp 20 20 20 18 B/P (MAP) 104/68 (80) Pulse Ox 96 96 94 O2 Delivery Room Air Room Air Room Air Room Air O2 Flow Rate 9.0 03/25/17 03/25/17 03/25/17 03/25/17 03:12 07:00 07:00 07:01 Temp 98.3 98.3 Pulse 117 Resp 20 18 B/P (MAP) 118/79 (92) Pulse Ox 94 96 O2 Delivery Room Air Room Air Room Air 03/25/17 03/25/17 07:38 09:02 O2 Delivery Room Air Room Air Intake and Output 03/24/17 03/24/17 03/25/17 15:00 23:00 07:00 Intake Total 649 ml 0 ml Output Total 650 ml Balance -1 ml 0 ml Assessment SBO, clinically resolved. Plan of Care Note Agree with trial of feeding/observe. JENNIFER NUNEZ MD March 25, 2017 10:21
[2017-03-25 11:00] VITALS: BP 114/79
[2017-03-25] MEDS: METOCLOPRAMIDE HCL 10 MG/2 ML VIAL. IV PRN (11:02)
--- NOTE | 2017-03-25 11:58 | PDOC3 ---
Discharge Summary Visit Information Date of Admission: March 22, 2017 Date of Discharge: March 25, 2017 Admitting Diagnosis Comment: No SBO H/o previous SBO DM Hypothyroidism Bipolar disorder Depression Cholecystectomy D&Cs Endometrial ablation Cystoscopy Brief Hospital Course Allergies Allergies Coded Allergies Type Severity Reaction Last Updated Verified morphine Allergy Intermediate TOLERATES DILAUDID 09/27/16 No butorphanol Adverse Reaction Severe "i get very angry" 09/27/16 Yes Vital Signs Vital Signs Date Time Temp Pulse Resp B/P (MAP) Pulse Ox O2 Delivery O2 Flow Rate FiO2 03/25/17 11:02 Room Air 03/25/17 11:00 98.4 99 18 114/79 (91) 97 98.4 03/25/17 02:42 9.0 Lab Results Laboratory Tests Test 03/23/17 16:58 03/23/17 20:34 03/24/17 04:05 03/24/17 07:07 Glucose (Fingerstick) 120 mg/dL (70-99) 112 mg/dL (70-99) 123 mg/dL (70-99) White Blood Count 11.5 x10^3/uL (4.0-11.0) Red Blood Count 3.97 x10^6/uL (3.50-5.40) Hemoglobin 11.4 g/dL (12.0-15.5) Hematocrit 35.1 % (36.0-47.0) Mean Corpuscular Volume 89 fL (79-100) Mean Corpuscular Hemoglobin 29 pg (25-35) Mean Corpuscular Hemoglobin Concent 33 g/dL (31-37) Red Cell Distribution Width 15.4 % (11.5-14.5) Platelet Count 323 x10^3/uL (140-400) Neutrophils (%) (Auto) 75 % (31-73) Lymphocytes (%) (Auto) 18 % (24-48) Monocytes (%) (Auto) 5 % (0-9) Eosinophils (%) (Auto) 1 % (0-3) Basophils (%) (Auto) 1 % (0-3) Neutrophils # (Auto) 8.7 x10^3uL (1.8-7.7) Lymphocytes # (Auto) 2.1 x10^3/uL (1.0-4.8) Monocytes # (Auto) 0.5 x10^3/uL (0.0-1.1) Eosinophils # (Auto) 0.1 x10^3/uL (0.0-0.7) Basophils # (Auto) 0.1 x10^3/uL (0.0-0.2) Sodium Level 140 mmol/L (136-145) Potassium Level 4.3 mmol/L (3.5-5.1) Chloride Level 105 mmol/L (98-107) Carbon Dioxide Level 25 mmol/L (21-32) Anion Gap 10 (6-14) Blood Urea Nitrogen 11 mg/dL (7-20) Creatinine 0.5 mg/dL (0.6-1.0) Estimated GFR (Cockcroft-Gault) 141.2 Glucose Level 114 mg/dL (70-99) Calcium Level 9.0 mg/dL (8.5-10.1) Amylase Level 53 U/L (25-115) Lipase 489 U/L (73-393) Test 03/24/17 11:00 03/24/17 15:50 03/24/17 20:28 03/25/17 07:02 Glucose (Fingerstick) 123 mg/dL (70-99) 111 mg/dL (70-99) 115 mg/dL (70-99) 114 mg/dL (70-99) Test 03/25/17 09:00 03/25/17 11:03 White Blood Count 9.7 x10^3/uL (4.0-11.0) Red Blood Count 4.33 x10^6/uL (3.50-5.40) Hemoglobin 12.7 g/dL (12.0-15.5) Hematocrit 37.6 % (36.0-47.0) Mean Corpuscular Volume 87 fL (79-100) Mean Corpuscular Hemoglobin 29 pg (25-35) Mean Corpuscular Hemoglobin Concent 34 g/dL (31-37) Red Cell Distribution Width 15.1 % (11.5-14.5) Platelet Count 341 x10^3/uL (140-400) Neutrophils (%) (Auto) 76 % (31-73) Lymphocytes (%) (Auto) 18 % (24-48) Monocytes (%) (Auto) 4 % (0-9) Eosinophils (%) (Auto) 1 % (0-3) Basophils (%) (Auto) 1 % (0-3) Neutrophils # (Auto) 7.4 x10^3uL (1.8-7.7) Lymphocytes # (Auto) 1.7 x10^3/uL (1.0-4.8) Monocytes # (Auto) 0.4 x10^3/uL (0.0-1.1) Eosinophils # (Auto) 0.1 x10^3/uL (0.0-0.7) Basophils # (Auto) 0.0 x10^3/uL (0.0-0.2) Sodium Level 140 mmol/L (136-145) Potassium Level 4.4 mmol/L (3.5-5.1) Chloride Level 103 mmol/L (98-107) Carbon Dioxide Level 26 mmol/L (21-32) Anion Gap 11 (6-14) Blood Urea Nitrogen 17 mg/dL (7-20) Creatinine 0.7 mg/dL (0.6-1.0) Estimated GFR (Cockcroft-Gault) 95.8 Glucose Level 123 mg/dL (70-99) Calcium Level 9.3 mg/dL (8.5-10.1) Glucose (Fingerstick) 105 mg/dL (70-99) Laboratory Tests Test 03/24/17 15:50 03/24/17 20:28 03/25/17 07:02 03/25/17 09:00 Glucose (Fingerstick) 111 mg/dL (70-99) 115 mg/dL (70-99) 114 mg/dL (70-99) White Blood Count 9.7 x10^3/uL (4.0-11.0) Red Blood Count 4.33 x10^6/uL (3.50-5.40) Hemoglobin 12.7 g/dL (12.0-15.5) Hematocrit 37.6 % (36.0-47.0) Mean Corpuscular Volume 87 fL (79-100) Mean Corpuscular Hemoglobin 29 pg (25-35) Mean Corpuscular Hemoglobin Concent 34 g/dL (31-37) Red Cell Distribution Width 15.1 % (11.5-14.5) Platelet Count 341 x10^3/uL (140-400) Neutrophils (%) (Auto) 76 % (31-73) Lymphocytes (%) (Auto) 18 % (24-48) Monocytes (%) (Auto) 4 % (0-9) Eosinophils (%) (Auto) 1 % (0-3) Basophils (%) (Auto) 1 % (0-3) Neutrophils # (Auto) 7.4 x10^3uL (1.8-7.7) Lymphocytes # (Auto) 1.7 x10^3/uL (1.0-4.8) Monocytes # (Auto) 0.4 x10^3/uL (0.0-1.1) Eosinophils # (Auto) 0.1 x10^3/uL (0.0-0.7) Basophils # (Auto) 0.0 x10^3/uL (0.0-0.2) Sodium Level 140 mmol/L (136-145) Potassium Level 4.4 mmol/L (3.5-5.1) Chloride Level 103 mmol/L (98-107) Carbon Dioxide Level 26 mmol/L (21-32) Anion Gap 11 (6-14) Blood Urea Nitrogen 17 mg/dL (7-20) Creatinine 0.7 mg/dL (0.6-1.0) Estimated GFR (Cockcroft-Gault) 95.8 Glucose Level 123 mg/dL (70-99) Calcium Level 9.3 mg/dL (8.5-10.1) Test 03/25/17 11:03 Glucose (Fingerstick) 105 mg/dL (70-99) Brief Hospital Course Ms. Hinojosa is a 36 old female, hx SBO, admitted for emesis, thought to initially have SBO, IMages x 2 no SBO, had NGT transient, accidentally taken out by pt, feels better, belly soft.. 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 Pt seen and examined DIspo: home consults; GI and GS proc NOne; Rx none time 20 mins Discharge Information Condition at Discharge: Improved, Stable Disposition/Orders: D/C to Home Scheduled Aripiprazole (Abilify), 5 MG PO DAILY, (Reported) Clindamycin Hcl (Clindamycin Hcl), 3 CAP PO TID Duloxetine Hcl (Cymbalta), 1 CAP PO DAILY, (Reported) Hydrocodone/Apap 5-325 ([place] 5-325 Tablet), 1-2 TAB PO Q4-6HRS Levothyroxine Sodium (Levothyroxine Sodium), 1 TAB PO DAILY, (Reported) Liraglutide (Victoza 3-Sp), 1.8 MG SQ HS, (Reported) Metformin Hcl (Metformin Hcl), 1 TAB PO BID, (Reported) Ondansetron (Zofran Odt), 1 TAB SL Q8HRS [Loperamide Hcl], 2 MG PO BID Scheduled PRN [Oxycodone Hcl/Acetaminophen], 1 TAB PO PRN Q4HRS PRN for SEVERE PAIN Discontinued Medications Levothyroxine Sodium (Synthroid), 1 TAB PO DAILY, (Reported) Liraglutide (Victoza 2-Sp), 0.6 MG SQ DAILY, (Reported) JAC ZAMARRIPA MD March 25, 2017 11:58
== END 2017-03-25 14:45 | disposition home or self-care (01) | DRG 392 ==
LOC: 4 NORTH 06:26
PROVIDERS: ADMIT Internal Medicine; ATTEND Internal Medicine
DX: R11.2 Nausea with vomiting, unspecified (principal); E03.9 Hypothyroidism, unspecified; E11.9 Type 2 diabetes mellitus without complications; F41.9 Anxiety disorder, unspecified; F31.9 Bipolar disorder, unspecified; E66.9 Obesity, unspecified; Z88.8 Allergy status to other drugs, medicaments and biological substances; Z88.5 Allergy status to narcotic agent; Z87.891 Personal history of nicotine dependence; Z82.49 Family history of ischemic heart disease and other diseases of the circulatory system; Z90.49 Acquired absence of other specified parts of digestive tract; Z68.37 Body mass index [BMI] 37.0-37.9, adult; Z79.899 Other long term (current) drug therapy
CPT/HCPCS: 36415; 74022; 74250; 80048; 82150; 82962; 83605; 83690; 85027; C9113; J2060; J2405; J2765; J3010; J7030; Q9967

== ENCOUNTER 2017-10-15 17:43 | Inpatient (IN) | payer OTHER ==
[~2017-10-15] VITALS: Ht 167.6 cm; Wt 118.6 kg
[~2017-10-15 17:43] MED LIST changes: +ARIP5TAB13 PO; -ARIP5TAB6 PO; -CLIN-44 PO; +CLIN150C14 PO; +LEVO75TA5 PO; +LIRA0.6P2 SQ; +NAPR-683 PO; -NAPR500T PO
--- NOTE | 2017-10-15 18:07 | PHYS DOC ---
Past Medical History Past Medical History: A-Fib, Anemia, Depression, Diabetes-Type II, Kidney Stone , Other Additional Past Medical Histor: multiple spontaneous abortions, ulcerative colitis, IBS Past Surgical History: Cholecystectomy, , Hysterectomy, Other Additional Past Surgical Histo: D&C, lithotripsy Alcohol Use: None Drug Use: None Adult General Chief Complaint Chief Complaint: ABDOMINAL PAIN HPI HPI Patient is a 37 year old female who presents with worsening abdominal pain. She states she was seen at [facility] in a CT scan of her abdomen pelvis showed colitis. She states she was sent home with a steroid shot and Flagyl. She states neither one of his been helping. She's also been taking hydrocodone and Zofran she states those have not been helping her pains been getting worse and she still having nausea. She states she has a colonoscopy set up as an outpatient with Dr. Quiles next week. She denies any fevers chills or constipation. She states she's been having loose stools. She states occasional she's noticed some blood in her stools. Review of Systems Review of Systems Constitutional: Denies fever or chills [] Eyes: Denies change in visual acuity, redness, or eye pain [] HENT: Denies nasal congestion or sore throat [] Respiratory: Denies cough or shortness of breath [] Cardiovascular: No additional information not addressed in HPI [] GI: Positive for abdominal pain, nausea, vomiting, bloody stools or diarrhea [] : Denies dysuria or hematuria [] Musculoskeletal: Denies back pain or joint pain [] Integument: Denies rash or skin lesions [] Neurologic: Denies headache, focal weakness or sensory changes [] Endocrine: Denies polyuria or polydipsia [] All other systems were reviewed and found to be within normal limits, except as documented in this note. Current Medications Current Medications Current Medications Medications (Trade) Dose Ordered Sig/Chandler Start Time Stop Time Status Last Admin Dose Admin Ciprofloxacin/ Dextrose 200 ml @ 200 mls/hr 1X ONCE 10/15/17 20:15 10/15/17 21:14 10/15/17 20:27 200 MLS/HR Fentanyl Citrate (Fentanyl 2ml Vial) 50 mcg PRN Q15MIN PRN 10/15/17 18:30 10/16/17 18:29 10/15/17 19:32 50 MCG Hydromorphone HCl (Dilaudid) 1 mg PRN Q6HRS PRN 10/15/17 20:45 Metronidazole 100 ml @ 100 mls/hr 1X ONCE 10/15/17 20:15 10/15/17 21:14 Promethazine HCl 25 mg/Sodium Chloride 51 ml @ 101 mls/hr 1X ONCE 10/15/17 18:30 10/15/17 19:00 DC 10/15/17 18:37 101 MLS/HR Sodium Chloride 1,000 ml @ 1,000 mls/hr Q1H 10/15/17 18:17 10/15/17 19:16 DC 10/15/17 18:37 1,000 MLS/HR Allergies Allergies Allergies Coded Allergies Type Severity Reaction Last Updated Verified morphine Allergy Intermediate TOLERATES DILAUDID 09/27/16 No butorphanol Adverse Reaction Severe "i get very angry" 09/27/16 Yes Physical Exam Physical Exam Constitutional: Well developed, well nourished, no acute distress, non-toxic appearance. [] HENT: Normocephalic, atraumatic, bilateral external ears normal, oropharynx moist, no oral exudates, nose normal. [] Eyes: PERRLA, EOMI, conjunctiva normal, no discharge. [] Neck: Normal range of motion, no tenderness, supple, no stridor. [] Cardiovascular:Heart rate regular rhythm, no murmur [] Lungs & Thorax: Bilateral breath sounds clear to auscultation [] Abdomen: Bowel sounds pitched soft, tender to palpation in the epigastric area, no masses, no pulsatile masses. [] Skin: Warm, dry, no erythema, no rash. [] Back: No tenderness, no CVA tenderness. [] Extremities: No tenderness, no cyanosis, no clubbing, ROM intact, no edema. [] Neurologic: Alert and oriented X 3, normal motor function, normal sensory function, no focal deficits noted. [] Psychologic: Affect normal, judgement normal, mood normal. [] Current Patient Data Vital Signs Vital Signs Date Time Temp Pulse Resp B/P (MAP) Pulse Ox O2 Delivery O2 Flow Rate FiO2 10/15/17 20:24 95 18 139/74 (95) 94 Room Air 10/15/17 17:56 99.0 99.0 Lab Values Laboratory Tests Test 10/15/17 18:20 White Blood Count 8.5 x10^3/uL (4.0-11.0) Red Blood Count 4.30 x10^6/uL (3.50-5.40) Hemoglobin 12.1 g/dL (12.0-15.5) Hematocrit 36.7 % (36.0-47.0) Mean Corpuscular Volume 85 fL (79-100) Mean Corpuscular Hemoglobin 28 pg (25-35) Mean Corpuscular Hemoglobin Concent 33 g/dL (31-37) Red Cell Distribution Width 14.8 % (11.5-14.5) H Platelet Count 343 x10^3/uL (140-400) Neutrophils (%) (Auto) 71 % (31-73) Lymphocytes (%) (Auto) 22 % (24-48) L Monocytes (%) (Auto) 5 % (0-9) Eosinophils (%) (Auto) 1 % (0-3) Basophils (%) (Auto) 1 % (0-3) Neutrophils # (Auto) 6.0 x10^3uL (1.8-7.7) Lymphocytes # (Auto) 1.9 x10^3/uL (1.0-4.8) Monocytes # (Auto) 0.5 x10^3/uL (0.0-1.1) Eosinophils # (Auto) 0.1 x10^3/uL (0.0-0.7) Basophils # (Auto) 0.1 x10^3/uL (0.0-0.2) Prothrombin Time 13.2 SEC (11.7-14.0) Prothrombin Time INR 1.1 (0.8-1.1) PTT 27 SEC (24-38) Urine Collection Type Unknown Urine Color Yellow Urine Clarity Clear Urine pH 6.0 Urine Specific [place] <=1.005 Urine Protein Negative mg/dL (NEG-TRACE) Urine Glucose (UA) Negative mg/dL (NEG) Urine Ketones (Stick) Negative mg/dL (NEG) Urine Blood Negative (NEG) Urine Nitrite Negative (NEG) Urine Bilirubin Negative (NEG) Urine Urobilinogen Dipstick 0.2 mg/dL (0.2 mg/dL) Urine Leukocyte Esterase Negative (NEG) Urine RBC 0 /HPF (0-2) Urine WBC 1-4 /HPF (0-4) Urine Squamous Epithelial Cells Mod /LPF Urine Bacteria Moderate /HPF (0-FEW) Sodium Level 138 mmol/L (136-145) Potassium Level 4.3 mmol/L (3.5-5.1) Chloride Level 101 mmol/L (98-107) Carbon Dioxide Level 27 mmol/L (21-32) Anion Gap 10 (6-14) Blood Urea Nitrogen 8 mg/dL (7-20) Creatinine 0.7 mg/dL (0.6-1.0) Estimated GFR (Cockcroft-Gault) 95.2 Glucose Level 143 mg/dL (70-99) H Calcium Level 8.5 mg/dL (8.5-10.1) Total Bilirubin 0.4 mg/dL (0.2-1.0) Direct Bilirubin 0.1 mg/dL (0.0-0.2) Aspartate Amino Transferase (AST) 23 U/L (15-37) Alanine Aminotransferase (ALT) 61 U/L (14-59) H Alkaline Phosphatase 69 U/L (46-116) Creatine Kinase 54 U/L (26-192) Creatine Kinase MB (Mass) < 0.5 ng/mL (0.0-3.6) Creatine Kinase MB Relative Index % (0-4) Troponin I Quantitative < 0.017 ng/mL (0.000-0.055) Total Protein 8.0 g/dL (6.4-8.2) Albumin 3.8 g/dL (3.4-5.0) Lipase 150 U/L (73-393) Urine Opiates Screen Pos (NEG) Urine Methadone Screen Neg (NEG) Urine Barbiturates Neg (NEG) Urine Phencyclidine Screen Neg (NEG) Urine Amphetamine/Methamphetamine Pos (NEG) Urine Benzodiazepines Screen Neg (NEG) Urine Cocaine Screen Neg (NEG) Urine Cannabinoids Screen Neg (NEG) Urine Ethyl Alcohol Neg (NEG) Laboratory Tests 10/15/17 18:20 Laboratory Tests 10/15/17 18:20 EKG EKG [] Radiology/Procedures Radiology/Procedures Acute abdominal series is show any infiltrates, pneumothorax, bony abnormalities , no free air noted under the diaphragms, as interpreted by me. IMAGING REPORT Signed PATIENT: BRANDONLINDSAYCAROLINE D ACCOUNT: [id number] : 1980 LOCATION: ER AGE: 37 SEX: F EXAM STATUS: REG ER ORD. PHYSICIAN: ROXY BARROW MD REASON: pain PROCEDURE: CT ABD PELV W/ORAL&IV CONTRAST CT SCAN OF THE ABDOMEN AND PELVIS WITH IV CONTRAST. History: Epigastric pain Comparison: August 21, 2017. Procedure: Contiguous axial images of the abdomen and pelvis were performed after the administration of 75 cc of Omni 300 IV contrast and oral contrast. CT Abdomen with contrast: Findings: Liver: Hypoattenuating but homogeneous Spleen: Unremarkable Pancreas: Unremarkable Adrenal Glands: Unremarkable Kidneys: Unremarkable There is no mass or lymphadenopathy. There is no free air. There is no free fluid. There has been prior cholecystectomy. Bilateral spondylolysis and grade 2 anterolisthesis of L5 on S1 was seen previously. The colon is collapsed limiting its evaluation. There is apparent mild wall thickening of the colon without surrounding inflammation. CT Pelvis with Contrast: Findings: The urinary bladder appears normal. There is no free fluid. There is no lymphadenopathy. The appendix is normal. Impression: 1. Fatty infiltration of the liver. 2. Findings suggest mild pancolitis. This could be infectious such as pseudomembranous colitis or could be inflammatory such as ulcerative colitis. There is no evidence of diverticulitis or ischemic colitis. PQRS Compliance Statement: One or more of the following individualized dose reduction techniques were utilized for this examination: 1. Automated exposure control 2. Adjustment of the mA and/or kV according to patient size 3. Use of iterative reconstruction technique Electronically signed by: Citlalli Grove III, MD (10/10/2017 11:33 PM) [facility] DICTATED AND SIGNED BY: CITLALLI GROVE III, MD DATE: 10/10/17 8413 CC: ROXY BARROW MD; OVIDIO DIAMOND ~ Impressions: Abdominal pain Course & Med Decision Making Course & Med Decision Making Pertinent Labs and Imaging studies reviewed. (See chart for details) CT scan from [facility] on October 10 shows pancolitis. I've cut and paste this results into the above note. Acute ulcers here in the ER does not show any acute abnormalities. Her pain is being controlled with Dilaudid. I started Cipro and Flagyl obtain blood cultures and a lactic acid. Patient is being admitted to Dr. Menezes with consultation Dr. Quiles on surgery since he was consult as an outpatient. Patient's agreeable plans being admitted in stable condition at this time. Dragon Disclaimer Dragon Disclaimer This electronic medical record was generated, in whole or in part, using a voice recognition dictation system. Departure Departure Impression: Primary Impression: Abdominal pain Disposition: ADMITTED INPATIENT Admitting Physician: Teressa Menezes Condition: STABLE Referrals: OVIDIO DIAMOND (PCP) CAMI SHEEHAN MD Oct 15, 2017 18:07
[2017-10-15] MEDS ORDERED: IV NORMAL SALINE 1000ML BAG 1,000 ML IV SCH (18:17)
[2017-10-15 18:26] LABS: BASO # 0.1 x10^3/uL (0.0-0.2); BASO % 1 % (0-3); EOS % 1 % (0-3); HEMATOCRIT 36.7 % (36.0-47.0); HEMOGLOBIN 12.1 g/dL (12.0-15.5); LYMPH # 1.9 x10^3/uL (1.0-4.8); LYMPH % 22 % (24-48); MEAN CORPUSCULAR HEMOGLOBIN 28 pg (25-35); MEAN CORPUSCULAR HGB CONC 33 g/dL (31-37); MEAN CORPUSCULAR VOLUME 85 fL (79-100); MONO % 5 % (0-9); NEUT % 71 % (31-73); PLATELET COUNT 343 x10^3/uL (140-400); RED CELL DISTRIBUTION WIDTH 14.8 % (11.5-14.5); WHITE BLOOD COUNT 8.5 x10^3/uL (4.0-11.0)
[2017-10-15] MEDS ORDERED: PROMETHAZINE 25 MG in IV NORMAL SALINE 50ML 50 ML IV ONE (18:30)
[2017-10-15 18:34] LABS: BARBITURATES NEG (NEG); BENZODIAZEPINES NEG (NEG); CANNABINOIDS NEG (NEG); COCAINE NEG (NEG); METHADONE NEG (NEG); OPIATES POS (NEG); PHENCYCLIDINE NEG (NEG)
[2017-10-15] MEDS: fentaNYL PF VIAL 100 MCG/2 ML VIAL IV PRN ×2 (18:38→19:32)
[2017-10-15 18:40] LABS: CALCIUM 8.5 mg/dL (8.5-10.1); CREATININE 0.7 mg/dL (0.6-1.0); GFR 95.2; POTASSIUM 4.3 mmol/L (3.5-5.1)
[2017-10-15 18:41] LABS: INR 1.1 (0.8-1.1); PROTHROMBIN TIME PATIENT 13.2 SEC (11.7-14.0)
[2017-10-15 18:43] LABS: BILIRUBIN,URINE NEGATIVE (NEG); GLUCOSE,URINE NEGATIVE (NEG); NITRITE,URINE NEGATIVE (NEG); PROTEIN,URINE NEGATIVE (NEG-TRACE); UROBILINOGEN,URINE 0.2 mg/dL (0.2 mg/dL)
[2017-10-15 18:46] LABS: ALBUMIN 3.8 g/dL (3.4-5.0); DIRECT BILIRUBIN 0.1 mg/dL (0.0-0.2); TOTAL BILIRUBIN 0.4 mg/dL (0.2-1.0)
[2017-10-15 18:55] LABS: BACTERIA,URINE MODERATE /HPF (0-FEW); RBC,URINE 0 /HPF (0-2); SQUAMOUS EPITHELIAL CELL,UR MOD /LPF
[2017-10-15 18:57] LABS: CKMB MASS < 0.5 ng/mL (0.0-3.6); CREATINE KINASE 54 U/L (26-192)
[2017-10-15] MEDS: HYDROmorphone 2 MG/ML VIAL IV/SQ PRN ×2 (20:12→21:15)
[2017-10-15] MEDS ORDERED: CIPROFLOXACIN 400MG PREMIX 200 ML IV ONE (20:15)
[2017-10-15] MEDS ORDERED: HYDROmorphone 2 MG/ML VIAL IV PRN (20:45)
[2017-10-15 21:25] VITALS: BP 122/77
[2017-10-15] MEDS ORDERED: fentaNYL PF VIAL 100 MCG/2 ML VIAL IV PRN (22:15)
[2017-10-15] MEDS: HYDROmorphone 2 MG/ML VIAL IV PRN (22:30)
[2017-10-15] MEDS: ONDANSETRON PF 4 MG/2 ML VIAL. IV PRN (22:30)
[2017-10-15] MEDS: IV 1/2 NORMAL SALINE 1,000 ML IV SCH (22:31)
[2017-10-15] MEDS ORDERED: LURA40TA PO (23:46)
[2017-10-15] MEDS ORDERED: FLUO20CA16 PO (23:46)
[2017-10-15] MEDS ORDERED: LISD50CA3 PO (23:46)
--- NOTE | 2017-10-16 00:32 | EKG ---
[facility] [address] [place] [address] Test Date: 2017-10-15 Test Time: 18:33:20 Pat Name: CAROLINE TAYLOR Department: Room: Gender: F [employer]: : 1980 Requested By: CAMI SHEEHAN Order Number: [id number] Reading MD: Measurements Intervals [place] Rate: 94 P: 66 GA: 164 QRS: 46 QRSD: 96 T: 22 QT: 364 QTc: 461 Interpretive Statements SINUS RHYTHM LEFT ATRIAL ABNORMALITY QRS(T) CONTOUR ABNORMALITY CONSIDER ANTEROLATERAL MYOCARDIAL DAMAGE ABNORMAL ECG RI6.01 No previous ECG available for comparison
[2017-10-16] MEDS: HYDROmorphone 2 MG/ML VIAL IV PRN ×8 (01:26→23:32)
[2017-10-16 02:55] VITALS: BP 117/70
[2017-10-16 06:12] LABS: BASO % 0 % (0-3); EOS % 2 % (0-3); HEMATOCRIT 35.6 % (36.0-47.0); HEMOGLOBIN 11.3 g/dL (12.0-15.5); LYMPH # 2.4 x10^3/uL (1.0-4.8); LYMPH % 29 % (24-48); MEAN CORPUSCULAR HEMOGLOBIN 27 pg (25-35); MEAN CORPUSCULAR HGB CONC 32 g/dL (31-37); MEAN CORPUSCULAR VOLUME 87 fL (79-100); MONO % 5 % (0-9); NEUT % 64 % (31-73); PLATELET COUNT 311 x10^3/uL (140-400); RED BLOOD COUNT 4.12 x10^6/uL (3.50-5.40); RED CELL DISTRIBUTION WIDTH 14.9 % (11.5-14.5); WHITE BLOOD COUNT 8.3 x10^3/uL (4.0-11.0)
[2017-10-16 06:15] LABS: CALCIUM 8.2 mg/dL (8.5-10.1); CREATININE 0.8 mg/dL (0.6-1.0); GFR 81.6; POTASSIUM 3.2 mmol/L (3.5-5.1)
[2017-10-16 07:00] VITALS: BP 114/62
--- NOTE | 2017-10-16 07:58 | RAD ---
Abdominal series including frontal view of the chest 2 views of the abdomen 10/15/2017 8:17 PM Indication: Abdominal pain. Prior cholecystectomy Comparison: Small bowel series March 16, 2017 Findings: There is no focal consolidation or infiltrate identified. There is no effusion or pneumothorax. Heart size is normal. Bowel gas pattern is nonobstructive. No pneumoperitoneum is identified. No osseous abnormality is identified. Impression: No radiographic evidence of acute cardiopulmonary or intra-abdominal process.
[2017-10-16] MEDS: CIPROFLOXACIN 400MG PREMIX 200 ML IV SCH ×2 (09:01→20:31)
[2017-10-16 10:54] VITALS: BP 119/77
[2017-10-16] MEDS ORDERED: HYDROcodone/APAP 5/325MG 1 TAB TABLET PO PRN (11:30)
--- NOTE | 2017-10-16 11:34 | PDOC1 ---
History and Physical Date of Admission Date of Admission DATE: 10/16/17 TIME: 11:26 History of Present Illness History of Present Illness HPI 37 year old female who presents with abdominal pain., was seen at [facility] in [place] in a CT scan of her abdomen pelvis c/w colitis. She states she was sent home with a steroid shot and Flagyl. taking hydrocodone and Zofran she states those have not been helping her pains been getting worse and she still having nausea. Denies recent foreign travel, or other family symptoms she has a colonoscopy set up as an outpatient with Dr. Quiles . She denies any fevers chills or constipation. she's noticed some blood in her stools., mostly diarrhea consistency family hx obesity Review of Systems Review of Systems Constitutional: Denies fever or chills [] Eyes: Denies change in visual acuity, redness, or eye pain [] HENT: Denies nasal congestion or sore throat [] Respiratory: Denies cough or shortness of breath [] Cardiovascular: No additional information not addressed in HPI [] GI: Positive for abdominal pain, nausea, vomiting, bloody stools or diarrhea [] : Denies dysuria or hematuria [] Musculoskeletal: Denies back pain or joint pain [] Integument: Denies rash or skin lesions [] Neurologic: Denies headache, focal weakness or sensory changes [] Endocrine: Denies polyuria or polydipsia [] All other systems were reviewed and found to be within normal limits, except as documented in this note. Current Medications Current Medications Current Medications Medications (Trade) Dose Ordered Sig/Chandler Start Time Stop Time Status Last Admin Dose Admin Ciprofloxacin/ Dextrose 200 ml @ 200 mls/hr 1X ONCE 10/15/17 20:15 10/15/17 21:14 10/15/17 20:27 200 MLS/HR Fentanyl Citrate (Fentanyl 2ml Vial) 50 mcg PRN Q15MIN PRN 10/15/17 18:30 10/16/17 18:29 10/15/17 19:32 50 MCG Hydromorphone HCl (Dilaudid) 1 mg PRN Q6HRS PRN 10/15/17 20:45 Metronidazole 100 ml @ 100 mls/hr 1X ONCE 10/15/17 20:15 10/15/17 21:14 Promethazine HCl 25 mg/Sodium Chloride 51 ml @ 101 mls/hr 1X ONCE 10/15/17 18:30 10/15/17 19:00 DC 10/15/17 18:37 101 MLS/HR Sodium Chloride 1,000 ml @ 1,000 mls/hr Q1H 10/15/17 18:17 10/15/17 19:16 DC 10/15/17 18:37 1,000 MLS/HR Allergies Allergies Allergies Coded Allergies Type Severity Reaction Last Updated Verified morphine Allergy Intermediate TOLERATES DILAUDID 09/27/16 No butorphanol Adverse Reaction Severe "i get very angry" 09/27/16 Yes Physical Exam Physical Exam Constitutional: Well developed, well nourished, no acute distress, non-toxic appearance. [] HENT: Normocephalic, atraumatic, bilateral external ears normal, oropharynx moist, no oral exudates, nose normal. [] Eyes: PERRLA, EOMI, conjunctiva normal, no discharge. [] Neck: Normal range of motion, no tenderness, supple, no stridor. [] Cardiovascular:Heart rate regular rhythm, no murmur [] Lungs & Thorax: Bilateral breath sounds clear to auscultation [] Abdomen: Bowel sounds pitched soft, tender to palpation in the epigastric area, no masses, no pulsatile masses. [] Skin: Warm, dry, no erythema, no rash. [] Back: No tenderness, no CVA tenderness. [] Extremities: No tenderness, no cyanosis, no clubbing, ROM intact, no edema. [] Neurologic: Alert and oriented X 3, normal motor function, normal sensory function, no focal deficits noted. [] Psychologic: Affect normal, judgement normal, mood normal. [] Past Medical History Pulmonary: No pertinent hx GI: No pertinent hx, Other Heme/Onc: No pertinent hx Hepatobiliary: No pertinent hx Psych: Bipolar, Depression Rheumatologic: No pertinent hx Renal/: Other Endocrine: Diabetes, Hypothyroidism Past Surgical History Past Surgical History: Cholecystectomy, Family History Family History: Hypertension, Other Social History Smoke: No ALCOHOL: none Drugs: None Current Problem List Problem List Problems Medical Problems: (1) Abdominal pain Status: Acute Problems: Current Medications Current Medications Current Medications Fentanyl Citrate (Fentanyl 2ml Vial) 50 mcg PRN Q15MIN PRN IV PAIN GREATER THAN 3/10 Last administered on 10/15/17 19:32; Start 10/15/17 at 18:30; Stop 10/16/17 at 18:29 Sodium Chloride 1,000 ml @ 1,000 mls/hr Q1H IV Last administered on 18:37; Start 10/15/17 at 18:17; Stop 10/15/17 at 19:16; Status DC Promethazine HCl 25 mg/Sodium Chloride 51 ml @ 101 mls/hr 1X ONCE IV Last administered on 10/15/17 18:37; Start 10/15/17 at 18:30; Stop 10/15/17 at 19 :00; Status DC Hydromorphone HCl (Dilaudid) 1 mg PRN Q15MIN PRN IV/SQ PAIN GREATER THAN 3/10 Last administered on 10/15/17 21:15; Start 10/15/17 at 20:00; Stop 10/16/17 at 19:59 Ciprofloxacin/ Dextrose 200 ml @ 200 mls/hr Q12HR IV Last administered on 09:01; Start 10/16/17 at 09:00 Metronidazole 100 ml @ 100 mls/hr Q8HRS IV Last administered on 10/16/17 05: 32; Start 10/16/17 at 06:00 Metronidazole 100 ml @ 100 mls/hr 1X ONCE IV Last administered on 10/15/17 22:30; Start 10/15/17 at 20:15; Stop 10/15/17 at 21:14; Status DC Ciprofloxacin/ Dextrose 200 ml @ 200 mls/hr 1X ONCE IV Last administered on 10/15/17 20:27; Start 10/15/17 at 20:15; Stop 10/15/17 at 21:14; Status DC Hydromorphone HCl (Dilaudid) 1 mg PRN Q6HRS PRN IV pain; Start 10/15/17 at 20: 45; Stop 10/15/17 at 22:15; Status DC Hydromorphone HCl (Dilaudid) 1 mg PRN Q3HRS PRN IV pain Last administered on 10:40; Start 10/15/17 at 22:15 Fentanyl Citrate (Fentanyl 2ml Vial) 50 mcg PRN Q2HR PRN IV PAIN; Start at 22:15 Ondansetron HCl (Zofran) 4 mg PRN Q6HRS PRN IV NAUSEA/VOMITING Last administered on 10/15/17 22:30; Start 10/15/17 at 22:15 Sodium Chloride 1,000 ml @ 100 mls/hr Q10H IV Last administered on 10/15/17 22:31; Start 10/15/17 at 22:15 Active Scripts Active [place] 5-325 Tablet (Acetaminophen/Hydrocodone Bitart) 1 Each Tablet 1-2 Tab PO Q4-6HRS [Oxycodone Hcl/Acetaminophen] 1 TAB Tablet 1 Tab PO PRN Q4HRS PRN Reported Prozac (Fluoxetine Hcl) 20 Mg Capsule 60 Mg PO DAILY Latuda (Lurasidone Hcl) 40 Mg Tablet 1 Tab PO QHS Vyvanse (Lisdexamfetamine Dimesylate) 50 Mg Capsule 50 Mg PO DAILY Levothyroxine Sodium 75 Mcg Tablet 1 Tab PO DAILY Metformin Hcl 1,000 Mg Tablet 1 Tab PO BID Allergies Allergies: Coded Allergies: morphine (Verified Allergy, Intermediate, TOLERATES DILAUDID, 10/16/17) butorphanol (Verified Adverse Reaction, Severe, "i get very angry", ) Vitals Vitals Vital Signs Date Time Temp Pulse Resp B/P (MAP) Pulse Ox O2 Delivery O2 Flow Rate FiO2 10/16/17 10:54 98.0 84 18 119/77 (91) 94 Room Air 98.0 Labs Labs Laboratory Tests Test 10/15/17 18:20 10/15/17 20:25 10/15/17 21:36 10/16/17 05:30 White Blood Count 8.5 x10^3/uL (4.0-11.0) 8.3 x10^3/uL (4.0-11.0) Red Blood Count 4.30 x10^6/uL (3.50-5.40) 4.12 x10^6/uL (3.50-5.40) Hemoglobin 12.1 g/dL (12.0-15.5) 11.3 g/dL (12.0-15.5) Hematocrit 36.7 % (36.0-47.0) 35.6 % (36.0-47.0) Mean Corpuscular Volume 85 fL (79-100) 87 fL (79-100) Mean Corpuscular Hemoglobin 28 pg (25-35) 27 pg (25-35) Mean Corpuscular Hemoglobin Concent 33 g/dL (31-37) 32 g/dL (31-37) Red Cell Distribution Width 14.8 % (11.5-14.5) 14.9 % (11.5-14.5) Platelet Count 343 x10^3/uL (140-400) 311 x10^3/uL (140-400) Neutrophils (%) (Auto) 71 % (31-73) 64 % (31-73) Lymphocytes (%) (Auto) 22 % (24-48) 29 % (24-48) Monocytes (%) (Auto) 5 % (0-9) 5 % (0-9) Eosinophils (%) (Auto) 1 % (0-3) 2 % (0-3) Basophils (%) (Auto) 1 % (0-3) 0 % (0-3) Neutrophils # (Auto) 6.0 x10^3uL (1.8-7.7) 5.3 x10^3uL (1.8-7.7) Lymphocytes # (Auto) 1.9 x10^3/uL (1.0-4.8) 2.4 x10^3/uL (1.0-4.8) Monocytes # (Auto) 0.5 x10^3/uL (0.0-1.1) 0.4 x10^3/uL (0.0-1.1) Eosinophils # (Auto) 0.1 x10^3/uL (0.0-0.7) 0.1 x10^3/uL (0.0-0.7) Basophils # (Auto) 0.1 x10^3/uL (0.0-0.2) 0.0 x10^3/uL (0.0-0.2) Prothrombin Time 13.2 SEC (11.7-14.0) Prothromb Time International Ratio 1.1 (0.8-1.1) Activated Partial Thromboplast Time 27 SEC (24-38) Urine Collection Type Unknown Urine Color Yellow Urine Clarity Clear Urine pH 6.0 Urine Specific [place] <=1.005 Urine Protein Negative mg/dL (NEG-TRACE) Urine Glucose (UA) Negative mg/dL (NEG) Urine Ketones (Stick) Negative mg/dL (NEG) Urine Blood Negative (NEG) Urine Nitrite Negative (NEG) Urine Bilirubin Negative (NEG) Urine Urobilinogen Dipstick 0.2 mg/dL (0.2 mg/dL) Urine Leukocyte Esterase Negative (NEG) Urine RBC 0 /HPF (0-2) Urine WBC 1-4 /HPF (0-4) Urine Squamous Epithelial Cells Mod /LPF Urine Bacteria Moderate /HPF (0-FEW) Sodium Level 138 mmol/L (136-145) 141 mmol/L (136-145) Potassium Level 4.3 mmol/L (3.5-5.1) 3.2 mmol/L (3.5-5.1) Chloride Level 101 mmol/L (98-107) 103 mmol/L (98-107) Carbon Dioxide Level 27 mmol/L (21-32) 25 mmol/L (21-32) Anion Gap 10 (6-14) 13 (6-14) Blood Urea Nitrogen 8 mg/dL (7-20) 8 mg/dL (7-20) Creatinine 0.7 mg/dL (0.6-1.0) 0.8 mg/dL (0.6-1.0) Estimated GFR (Cockcroft-Gault) 95.2 81.6 Glucose Level 143 mg/dL (70-99) 136 mg/dL (70-99) Calcium Level 8.5 mg/dL (8.5-10.1) 8.2 mg/dL (8.5-10.1) Total Bilirubin 0.4 mg/dL (0.2-1.0) Direct Bilirubin 0.1 mg/dL (0.0-0.2) Aspartate Amino Transf (AST/SGOT) 23 U/L (15-37) Alanine Aminotransferase (ALT/SGPT) 61 U/L (14-59) Alkaline Phosphatase 69 U/L (46-116) Creatine Kinase 54 U/L (26-192) Creatine Kinase MB (Mass) < 0.5 ng/mL (0.0-3.6) Creatine Kinase MB Relative Index % (0-4) Troponin I Quantitative < 0.017 ng/mL (0.000-0.055) Total Protein 8.0 g/dL (6.4-8.2) Albumin 3.8 g/dL (3.4-5.0) Lipase 150 U/L (73-393) Urine Opiates Screen Pos (NEG) Urine Methadone Screen Neg (NEG) Urine Barbiturates Neg (NEG) Urine Phencyclidine Screen Neg (NEG) Urine Amphetamine/Methamphetamine Pos (NEG) Urine Benzodiazepines Screen Neg (NEG) Urine Cocaine Screen Neg (NEG) Urine Cannabinoids Screen Neg (NEG) Urine Ethyl Alcohol Neg (NEG) Lactic Acid Level 1.0 mmol/L (0.4-2.0) Glucose (Fingerstick) 124 mg/dL (70-99) Test 10/16/17 07:21 Glucose (Fingerstick) 135 mg/dL (70-99) Laboratory Tests Test 10/15/17 18:20 10/15/17 20:25 10/15/17 21:36 10/16/17 05:30 White Blood Count 8.5 x10^3/uL (4.0-11.0) 8.3 x10^3/uL (4.0-11.0) Red Blood Count 4.30 x10^6/uL (3.50-5.40) 4.12 x10^6/uL (3.50-5.40) Hemoglobin 12.1 g/dL (12.0-15.5) 11.3 g/dL (12.0-15.5) Hematocrit 36.7 % (36.0-47.0) 35.6 % (36.0-47.0) Mean Corpuscular Volume 85 fL (79-100) 87 fL (79-100) Mean Corpuscular Hemoglobin 28 pg (25-35) 27 pg (25-35) Mean Corpuscular Hemoglobin Concent 33 g/dL (31-37) 32 g/dL (31-37) Red Cell Distribution Width 14.8 % (11.5-14.5) 14.9 % (11.5-14.5) Platelet Count 343 x10^3/uL (140-400) 311 x10^3/uL (140-400) Neutrophils (%) (Auto) 71 % (31-73) 64 % (31-73) Lymphocytes (%) (Auto) 22 % (24-48) 29 % (24-48) Monocytes (%) (Auto) 5 % (0-9) 5 % (0-9) Eosinophils (%) (Auto) 1 % (0-3) 2 % (0-3) Basophils (%) (Auto) 1 % (0-3) 0 % (0-3) Neutrophils # (Auto) 6.0 x10^3uL (1.8-7.7) 5.3 x10^3uL (1.8-7.7) Lymphocytes # (Auto) 1.9 x10^3/uL (1.0-4.8) 2.4 x10^3/uL (1.0-4.8) Monocytes # (Auto) 0.5 x10^3/uL (0.0-1.1) 0.4 x10^3/uL (0.0-1.1) Eosinophils # (Auto) 0.1 x10^3/uL (0.0-0.7) 0.1 x10^3/uL (0.0-0.7) Basophils # (Auto) 0.1 x10^3/uL (0.0-0.2) 0.0 x10^3/uL (0.0-0.2) Prothrombin Time 13.2 SEC (11.7-14.0) Prothromb Time International Ratio 1.1 (0.8-1.1) Activated Partial Thromboplast Time 27 SEC (24-38) Urine Collection Type Unknown Urine Color Yellow Urine Clarity Clear Urine pH 6.0 Urine Specific [place] <=1.005 Urine Protein Negative mg/dL (NEG-TRACE) Urine Glucose (UA) Negative mg/dL (NEG) Urine Ketones (Stick) Negative mg/dL (NEG) Urine Blood Negative (NEG) Urine Nitrite Negative (NEG) Urine Bilirubin Negative (NEG) Urine Urobilinogen Dipstick 0.2 mg/dL (0.2 mg/dL) Urine Leukocyte Esterase Negative (NEG) Urine RBC 0 /HPF (0-2) Urine WBC 1-4 /HPF (0-4) Urine Squamous Epithelial Cells Mod /LPF Urine Bacteria Moderate /HPF (0-FEW) Sodium Level 138 mmol/L (136-145) 141 mmol/L (136-145) Potassium Level 4.3 mmol/L (3.5-5.1) 3.2 mmol/L (3.5-5.1) Chloride Level 101 mmol/L (98-107) 103 mmol/L (98-107) Carbon Dioxide Level 27 mmol/L (21-32) 25 mmol/L (21-32) Anion Gap 10 (6-14) 13 (6-14) Blood Urea Nitrogen 8 mg/dL (7-20) 8 mg/dL (7-20) Creatinine 0.7 mg/dL (0.6-1.0) 0.8 mg/dL (0.6-1.0) Estimated GFR (Cockcroft-Gault) 95.2 81.6 Glucose Level 143 mg/dL (70-99) 136 mg/dL (70-99) Calcium Level 8.5 mg/dL (8.5-10.1) 8.2 mg/dL (8.5-10.1) Total Bilirubin 0.4 mg/dL (0.2-1.0) Direct Bilirubin 0.1 mg/dL (0.0-0.2) Aspartate Amino Transf (AST/SGOT) 23 U/L (15-37) Alanine Aminotransferase (ALT/SGPT) 61 U/L (14-59) Alkaline Phosphatase 69 U/L (46-116) Creatine Kinase 54 U/L (26-192) Creatine Kinase MB (Mass) < 0.5 ng/mL (0.0-3.6) Creatine Kinase MB Relative Index % (0-4) Troponin I Quantitative < 0.017 ng/mL (0.000-0.055) Total Protein 8.0 g/dL (6.4-8.2) Albumin 3.8 g/dL (3.4-5.0) Lipase 150 U/L (73-393) Urine Opiates Screen Pos (NEG) Urine Methadone Screen Neg (NEG) Urine Barbiturates Neg (NEG) Urine Phencyclidine Screen Neg (NEG) Urine Amphetamine/Methamphetamine Pos (NEG) Urine Benzodiazepines Screen Neg (NEG) Urine Cocaine Screen Neg (NEG) Urine Cannabinoids Screen Neg (NEG) Urine Ethyl Alcohol Neg (NEG) Lactic Acid Level 1.0 mmol/L (0.4-2.0) Glucose (Fingerstick) 124 mg/dL (70-99) Test 10/16/17 07:21 Glucose (Fingerstick) 135 mg/dL (70-99) VTE Prophylaxis Ordered VTE Prophylaxis Devices: Yes VTE Pharmacological Prophylaxi: Yes Assessment/Plan Assessment/Plan impression 1. colitis, acute, need ct report from [facility] 2. abdominal pain 3. morbid obesity 4. diabetes 5. hypothyroid state under treatment 6. ADD under rx plan iv antibiotics, cipro, flagyl GI consult consult dr Quiles iv fluid support npo iv pain control WILLIE ANNE MD Oct 16, 2017 11:34
[2017-10-16] MEDS: IV 1/2 NORMAL SALINE 1,000 ML IV SCH ×2 (11:47→23:32)
--- NOTE | 2017-10-16 12:38 | PDOC2 ---
CONSULT Date of Consult Date of Consult DATE: 10/16/17 TIME: 12:35 Reason for Consult Reason for Consult: Abdominal pain diarrhea Identification/Chief Complaint Chief Complaint Abdominal pain and diarrhea Problems: Source Source: Patient History of Present Illness Reason for Visit: 37-year-old female recently was hospitalized at [facility] with colitis had subsequent seen me in the clinic scheduled for colonoscopy tomorrow returns to the emergency department with continued complaints of abdominal pain diarrhea recently noticed some blood in her stools she is also complaining of nausea although she has not vomited. She states the pain in her abdomen is mostly epigastric radiating to her back. She also describes her stools as being quite greasy and foul-smelling. She also states that she is noticed some blood in her stools recently Past Medical History Pulmonary: No pertinent hx GI: No pertinent hx, Other Heme/Onc: No pertinent hx Hepatobiliary: No pertinent hx Psych: Bipolar, Depression Rheumatologic: No pertinent hx Renal/: Other Endocrine: Diabetes, Hypothyroidism Past Surgical History Past Surgical History: Cholecystectomy, Family History Family History: Hypertension, Other Social History No ALCOHOL: none Drugs: None Lives: with Family Current Problem List Problem List Problems Medical Problems: (1) Abdominal pain Status: Acute Current Medications Current Medications Current Medications Fentanyl Citrate (Fentanyl 2ml Vial) 50 mcg PRN Q15MIN PRN IV PAIN GREATER THAN 3/10 Last administered on 10/15/17 19:32; Start 10/15/17 at 18:30; Stop 10/16/17 at 18:29 Sodium Chloride 1,000 ml @ 1,000 mls/hr Q1H IV Last administered on 18:37; Start 10/15/17 at 18:17; Stop 10/15/17 at 19:16; Status DC Promethazine HCl 25 mg/Sodium Chloride 51 ml @ 101 mls/hr 1X ONCE IV Last administered on 10/15/17 18:37; Start 10/15/17 at 18:30; Stop 10/15/17 at 19 :00; Status DC Hydromorphone HCl (Dilaudid) 1 mg PRN Q15MIN PRN IV/SQ PAIN GREATER THAN 3/10 Last administered on 10/15/17 21:15; Start 10/15/17 at 20:00; Stop 10/16/17 at 19:59 Ciprofloxacin/ Dextrose 200 ml @ 200 mls/hr Q12HR IV Last administered on 09:01; Start 10/16/17 at 09:00 Metronidazole 100 ml @ 100 mls/hr Q8HRS IV Last administered on 10/16/17 05: 32; Start 10/16/17 at 06:00 Metronidazole 100 ml @ 100 mls/hr 1X ONCE IV Last administered on 10/15/17 22:30; Start 10/15/17 at 20:15; Stop 10/15/17 at 21:14; Status DC Ciprofloxacin/ Dextrose 200 ml @ 200 mls/hr 1X ONCE IV Last administered on 10/15/17 20:27; Start 10/15/17 at 20:15; Stop 10/15/17 at 21:14; Status DC Hydromorphone HCl (Dilaudid) 1 mg PRN Q6HRS PRN IV pain; Start 10/15/17 at 20: 45; Stop 10/15/17 at 22:15; Status DC Hydromorphone HCl (Dilaudid) 1 mg PRN Q3HRS PRN IV pain Last administered on 10:40; Start 10/15/17 at 22:15 Fentanyl Citrate (Fentanyl 2ml Vial) 50 mcg PRN Q2HR PRN IV PAIN; Start at 22:15 Ondansetron HCl (Zofran) 4 mg PRN Q6HRS PRN IV NAUSEA/VOMITING Last administered on 10/15/17 22:30; Start 10/15/17 at 22:15 Sodium Chloride 1,000 ml @ 100 mls/hr Q10H IV Last administered on 10/16/17 11:47; Start 10/15/17 at 22:15 Fluoxetine HCl (PROzac) 60 mg DAILY PO ; Start 10/16/17 at 12:00 Acetaminophen/ Hydrocodone Bitart (Lortab 5/325) 1 tab Q6HRS PRN PO MODERATE PAIN; Start 10/16/17 at 11:30; Stop 10/20/17 at 11:29 Levothyroxine Sodium (Synthroid) 75 mcg DAILY07 PO ; Start 10/16/17 at 12:00 Lurasidone HCl (Latuda) 40 mg QHS PO ; Start 10/16/17 at 21:00; Status UNV Acetaminophen/ Hydrocodone Bitart (Lortab 5/325) 2 tab Q6HRS PRN PO SEVERE PAIN ; Start 10/16/17 at 11:45; Stop 10/20/17 at 11:29 Sodium Cl/Sod Bicarb/Potass Cl/ PEG (Golytely) 4,000 ml 1X ONCE PO ; Start at 14:00; Stop 10/16/17 at 14:01 Bisacodyl (Dulcolax Tab) 10 mg 1X ONCE PO ; Start 10/16/17 at 13:00; Stop at 13:01 Active Scripts Active Blue 5-325 Tablet (Acetaminophen/Hydrocodone Bitart) 1 Each Tablet 1-2 Tab PO Q4-6HRS [Oxycodone Hcl/Acetaminophen] 1 TAB Tablet 1 Tab PO PRN Q4HRS PRN Reported Prozac (Fluoxetine Hcl) 20 Mg Capsule 60 Mg PO DAILY Latuda (Lurasidone Hcl) 40 Mg Tablet 1 Tab PO QHS Vyvanse (Lisdexamfetamine Dimesylate) 50 Mg Capsule 50 Mg PO DAILY Levothyroxine Sodium 75 Mcg Tablet 1 Tab PO DAILY Metformin Hcl 1,000 Mg Tablet 1 Tab PO BID Allergies Allergies: Coded Allergies: morphine (Verified Allergy, Intermediate, TOLERATES DILAUDID, 10/16/17) butorphanol (Verified Adverse Reaction, Severe, "i get very angry", ) ROS Gastrointestinal: Yes Nausea, Yes Abdominal Pain, Yes Diarrhea, Yes Melena Physical Exam General: Alert, Oriented X3, Cooperative, mild distress HEENT: Atraumatic Lungs: Clear to auscultation, Normal air movement Heart: Regular rate, No murmurs Abdomen: Normal bowel sounds, Soft, Other (tender to palpation epigastrium) Extremities: No edema Skin: No significant lesion Neuro: Normal speech Psych/Mental Status: Mental status NL Vitals VITALS Vital Signs Date Time Temp Pulse Resp B/P (MAP) Pulse Ox O2 Delivery O2 Flow Rate FiO2 10/16/17 11:10 18 Room Air 10/16/17 10:54 98.0 84 119/77 (91) 94 98.0 Labs Labs Laboratory Tests Test 10/15/17 18:20 10/15/17 20:25 10/15/17 21:36 10/16/17 05:30 White Blood Count 8.5 x10^3/uL (4.0-11.0) 8.3 x10^3/uL (4.0-11.0) Red Blood Count 4.30 x10^6/uL (3.50-5.40) 4.12 x10^6/uL (3.50-5.40) Hemoglobin 12.1 g/dL (12.0-15.5) 11.3 g/dL (12.0-15.5) Hematocrit 36.7 % (36.0-47.0) 35.6 % (36.0-47.0) Mean Corpuscular Volume 85 fL (79-100) 87 fL (79-100) Mean Corpuscular Hemoglobin 28 pg (25-35) 27 pg (25-35) Mean Corpuscular Hemoglobin Concent 33 g/dL (31-37) 32 g/dL (31-37) Red Cell Distribution Width 14.8 % (11.5-14.5) 14.9 % (11.5-14.5) Platelet Count 343 x10^3/uL (140-400) 311 x10^3/uL (140-400) Neutrophils (%) (Auto) 71 % (31-73) 64 % (31-73) Lymphocytes (%) (Auto) 22 % (24-48) 29 % (24-48) Monocytes (%) (Auto) 5 % (0-9) 5 % (0-9) Eosinophils (%) (Auto) 1 % (0-3) 2 % (0-3) Basophils (%) (Auto) 1 % (0-3) 0 % (0-3) Neutrophils # (Auto) 6.0 x10^3uL (1.8-7.7) 5.3 x10^3uL (1.8-7.7) Lymphocytes # (Auto) 1.9 x10^3/uL (1.0-4.8) 2.4 x10^3/uL (1.0-4.8) Monocytes # (Auto) 0.5 x10^3/uL (0.0-1.1) 0.4 x10^3/uL (0.0-1.1) Eosinophils # (Auto) 0.1 x10^3/uL (0.0-0.7) 0.1 x10^3/uL (0.0-0.7) Basophils # (Auto) 0.1 x10^3/uL (0.0-0.2) 0.0 x10^3/uL (0.0-0.2) Prothrombin Time 13.2 SEC (11.7-14.0) Prothromb Time International Ratio 1.1 (0.8-1.1) Activated Partial Thromboplast Time 27 SEC (24-38) Urine Collection Type Unknown Urine Color Yellow Urine Clarity Clear Urine pH 6.0 Urine Specific [place] <=1.005 Urine Protein Negative mg/dL (NEG-TRACE) Urine Glucose (UA) Negative mg/dL (NEG) Urine Ketones (Stick) Negative mg/dL (NEG) Urine Blood Negative (NEG) Urine Nitrite Negative (NEG) Urine Bilirubin Negative (NEG) Urine Urobilinogen Dipstick 0.2 mg/dL (0.2 mg/dL) Urine Leukocyte Esterase Negative (NEG) Urine RBC 0 /HPF (0-2) Urine WBC 1-4 /HPF (0-4) Urine Squamous Epithelial Cells Mod /LPF Urine Bacteria Moderate /HPF (0-FEW) Sodium Level 138 mmol/L (136-145) 141 mmol/L (136-145) Potassium Level 4.3 mmol/L (3.5-5.1) 3.2 mmol/L (3.5-5.1) Chloride Level 101 mmol/L (98-107) 103 mmol/L (98-107) Carbon Dioxide Level 27 mmol/L (21-32) 25 mmol/L (21-32) Anion Gap 10 (6-14) 13 (6-14) Blood Urea Nitrogen 8 mg/dL (7-20) 8 mg/dL (7-20) Creatinine 0.7 mg/dL (0.6-1.0) 0.8 mg/dL (0.6-1.0) Estimated GFR (Cockcroft-Gault) 95.2 81.6 Glucose Level 143 mg/dL (70-99) 136 mg/dL (70-99) Calcium Level 8.5 mg/dL (8.5-10.1) 8.2 mg/dL (8.5-10.1) Total Bilirubin 0.4 mg/dL (0.2-1.0) Direct Bilirubin 0.1 mg/dL (0.0-0.2) Aspartate Amino Transf (AST/SGOT) 23 U/L (15-37) Alanine Aminotransferase (ALT/SGPT) 61 U/L (14-59) Alkaline Phosphatase 69 U/L (46-116) Creatine Kinase 54 U/L (26-192) Creatine Kinase MB (Mass) < 0.5 ng/mL (0.0-3.6) Creatine Kinase MB Relative Index % (0-4) Troponin I Quantitative < 0.017 ng/mL (0.000-0.055) Total Protein 8.0 g/dL (6.4-8.2) Albumin 3.8 g/dL (3.4-5.0) Lipase 150 U/L (73-393) Urine Opiates Screen Pos (NEG) Urine Methadone Screen Neg (NEG) Urine Barbiturates Neg (NEG) Urine Phencyclidine Screen Neg (NEG) Urine Amphetamine/Methamphetamine Pos (NEG) Urine Benzodiazepines Screen Neg (NEG) Urine Cocaine Screen Neg (NEG) Urine Cannabinoids Screen Neg (NEG) Urine Ethyl Alcohol Neg (NEG) Lactic Acid Level 1.0 mmol/L (0.4-2.0) Glucose (Fingerstick) 124 mg/dL (70-99) Test 10/16/17 07:21 10/16/17 11:36 Glucose (Fingerstick) 135 mg/dL (70-99) 144 mg/dL (70-99) Laboratory Tests Test 10/15/17 18:20 10/15/17 20:25 10/15/17 21:36 10/16/17 05:30 White Blood Count 8.5 x10^3/uL (4.0-11.0) 8.3 x10^3/uL (4.0-11.0) Red Blood Count 4.30 x10^6/uL (3.50-5.40) 4.12 x10^6/uL (3.50-5.40) Hemoglobin 12.1 g/dL (12.0-15.5) 11.3 g/dL (12.0-15.5) Hematocrit 36.7 % (36.0-47.0) 35.6 % (36.0-47.0) Mean Corpuscular Volume 85 fL (79-100) 87 fL (79-100) Mean Corpuscular Hemoglobin 28 pg (25-35) 27 pg (25-35) Mean Corpuscular Hemoglobin Concent 33 g/dL (31-37) 32 g/dL (31-37) Red Cell Distribution Width 14.8 % (11.5-14.5) 14.9 % (11.5-14.5) Platelet Count 343 x10^3/uL (140-400) 311 x10^3/uL (140-400) Neutrophils (%) (Auto) 71 % (31-73) 64 % (31-73) Lymphocytes (%) (Auto) 22 % (24-48) 29 % (24-48) Monocytes (%) (Auto) 5 % (0-9) 5 % (0-9) Eosinophils (%) (Auto) 1 % (0-3) 2 % (0-3) Basophils (%) (Auto) 1 % (0-3) 0 % (0-3) Neutrophils # (Auto) 6.0 x10^3uL (1.8-7.7) 5.3 x10^3uL (1.8-7.7) Lymphocytes # (Auto) 1.9 x10^3/uL (1.0-4.8) 2.4 x10^3/uL (1.0-4.8) Monocytes # (Auto) 0.5 x10^3/uL (0.0-1.1) 0.4 x10^3/uL (0.0-1.1) Eosinophils # (Auto) 0.1 x10^3/uL (0.0-0.7) 0.1 x10^3/uL (0.0-0.7) Basophils # (Auto) 0.1 x10^3/uL (0.0-0.2) 0.0 x10^3/uL (0.0-0.2) Prothrombin Time 13.2 SEC (11.7-14.0) Prothromb Time International Ratio 1.1 (0.8-1.1) Activated Partial Thromboplast Time 27 SEC (24-38) Urine Collection Type Unknown Urine Color Yellow Urine Clarity Clear Urine pH 6.0 Urine Specific [place] <=1.005 Urine Protein Negative mg/dL (NEG-TRACE) Urine Glucose (UA) Negative mg/dL (NEG) Urine Ketones (Stick) Negative mg/dL (NEG) Urine Blood Negative (NEG) Urine Nitrite Negative (NEG) Urine Bilirubin Negative (NEG) Urine Urobilinogen Dipstick 0.2 mg/dL (0.2 mg/dL) Urine Leukocyte Esterase Negative (NEG) Urine RBC 0 /HPF (0-2) Urine WBC 1-4 /HPF (0-4) Urine Squamous Epithelial Cells Mod /LPF Urine Bacteria Moderate /HPF (0-FEW) Sodium Level 138 mmol/L (136-145) 141 mmol/L (136-145) Potassium Level 4.3 mmol/L (3.5-5.1) 3.2 mmol/L (3.5-5.1) Chloride Level 101 mmol/L (98-107) 103 mmol/L (98-107) Carbon Dioxide Level 27 mmol/L (21-32) 25 mmol/L (21-32) Anion Gap 10 (6-14) 13 (6-14) Blood Urea Nitrogen 8 mg/dL (7-20) 8 mg/dL (7-20) Creatinine 0.7 mg/dL (0.6-1.0) 0.8 mg/dL (0.6-1.0) Estimated GFR (Cockcroft-Gault) 95.2 81.6 Glucose Level 143 mg/dL (70-99) 136 mg/dL (70-99) Calcium Level 8.5 mg/dL (8.5-10.1) 8.2 mg/dL (8.5-10.1) Total Bilirubin 0.4 mg/dL (0.2-1.0) Direct Bilirubin 0.1 mg/dL (0.0-0.2) Aspartate Amino Transf (AST/SGOT) 23 U/L (15-37) Alanine Aminotransferase (ALT/SGPT) 61 U/L (14-59) Alkaline Phosphatase 69 U/L (46-116) Creatine Kinase 54 U/L (26-192) Creatine Kinase MB (Mass) < 0.5 ng/mL (0.0-3.6) Creatine Kinase MB Relative Index % (0-4) Troponin I Quantitative < 0.017 ng/mL (0.000-0.055) Total Protein 8.0 g/dL (6.4-8.2) Albumin 3.8 g/dL (3.4-5.0) Lipase 150 U/L (73-393) Urine Opiates Screen Pos (NEG) Urine Methadone Screen Neg (NEG) Urine Barbiturates Neg (NEG) Urine Phencyclidine Screen Neg (NEG) Urine Amphetamine/Methamphetamine Pos (NEG) Urine Benzodiazepines Screen Neg (NEG) Urine Cocaine Screen Neg (NEG) Urine Cannabinoids Screen Neg (NEG) Urine Ethyl Alcohol Neg (NEG) Lactic Acid Level 1.0 mmol/L (0.4-2.0) Glucose (Fingerstick) 124 mg/dL (70-99) Test 10/16/17 07:21 10/16/17 11:36 Glucose (Fingerstick) 135 mg/dL (70-99) 144 mg/dL (70-99) Assessment/Plan Assessment/Plan Abdominal pain with diarrhea melena epigastric pain and nausea We'll plan on colonoscopy EGD tomorrow bowel prep today WILLIE HAYNES MD Oct 16, 2017 12:38
[2017-10-16] MEDS: FLUoxetine HCL 20 MG CAPSULE PO SCH (12:39)
[2017-10-16] MEDS: LEVOTHYROXINE 75 MCG TABLET PO SCH (12:39)
[2017-10-16] MEDS ORDERED: BISACODYL 5 MG TABLET.DR. PO ONE (13:00)
[2017-10-16] MEDS ORDERED: PEG 3350/NA SULF,BICARB,CL/KCL 4,000 ML SOLUTION. PO ONE (14:00)
[2017-10-16 14:51] VITALS: BP 124/76
[2017-10-16] MEDS: ONDANSETRON PF 4 MG/2 ML VIAL. IV PRN (14:52)
[2017-10-16] MEDS: METOCLOPRAMIDE HCL 10 MG/2 ML VIAL. IV PRN (16:09)
[2017-10-16] MEDS ORDERED: IOHEXOL 300 MG/ML 100ML VIAL. IV ONE (16:15)
[2017-10-16] MEDS ORDERED: CONTRAST GIVEN MC PRN (16:15)
--- NOTE | 2017-10-16 17:03 | RAD ---
CT abdomen pelvis with contrast: CT scan of the abdomen and pelvis with IV contrast: History: Abdominal pain. Comparison:February 15, 2016. Procedure: Contiguous axial images of the abdomen and pelvis were performed after the administration of 100 cc of Omni 300 IV contrast and without oral contrast. CT abdomen with contrast: Liver: Hypoattenuating. Spleen: Unremarkable. Pancreas: Unremarkable. Adrenal Glands: Unremarkable. Right Kidney: Unremarkable. Left Kidney: Unremarkable. Aorta: Normal. There is no mass or lymphadenopathy. There is no free air. There is no free fluid. Impression: Fatty infiltration of the liver. End impression CT of pelvis with contrast: The uterus is not well seen and could be small or surgically absent. The ovaries are not well seen and are likely small. There is no lymphadenopathy or free fluid. The bladder appears normal. There is no pericolonic inflammation. The appendix appears normal. Impression: No acute findings. Please see CT of the abdomen with contrast. PQRS Compliance Statement: One or more of the following individualized dose reduction techniques were utilized for this examination: 1. Automated exposure control 2. Adjustment of the mA and/or kV according to patient size 3. Use of iterative reconstruction technique
[2017-10-16 19:00] VITALS: BP 108/63
[2017-10-16] MEDS: LACTOBACILLUS RHAMNOSUS GG 1 CAPSULE. PO SCH (20:36)
[2017-10-16] MEDS: LURASIDONE 40 MG TABLET. PO SCH (20:36)
[2017-10-16 23:00] VITALS: BP 113/71
[2017-10-17] MEDS: METOCLOPRAMIDE HCL 10 MG/2 ML VIAL. IV PRN (02:48)
[2017-10-17] MEDS: HYDROmorphone 2 MG/ML VIAL IV PRN ×6 (02:49→20:57)
[2017-10-17 03:00] VITALS: BP 109/69
[2017-10-17] MEDS: IV 1/2 NORMAL SALINE 1,000 ML IV SCH ×2 (04:15→15:47)
[2017-10-17 05:16] LABS: BASO % 0 % (0-3); EOS % 2 % (0-3); HEMOGLOBIN 11.7 g/dL (12.0-15.5); LYMPH # 1.7 x10^3/uL (1.0-4.8); LYMPH % 25 % (24-48); MEAN CORPUSCULAR HEMOGLOBIN 28 pg (25-35); MEAN CORPUSCULAR HGB CONC 32 g/dL (31-37); MEAN CORPUSCULAR VOLUME 87 fL (79-100); MONO % 5 % (0-9); NEUT % 67 % (31-73); PLATELET COUNT 268 x10^3/uL (140-400); RED BLOOD COUNT 4.13 x10^6/uL (3.50-5.40); RED CELL DISTRIBUTION WIDTH 15.1 % (11.5-14.5)
[2017-10-17 06:02] LABS: ALBUMIN 3.4 g/dL (3.4-5.0); CALCIUM 8.1 mg/dL (8.5-10.1); CREATININE 0.7 mg/dL (0.6-1.0); GFR 95.2; POTASSIUM 3.7 mmol/L (3.5-5.1); TOTAL BILIRUBIN 0.4 mg/dL (0.2-1.0); TOTAL PROTEIN 6.8 g/dL (6.4-8.2)
[2017-10-17] MEDS: LEVOTHYROXINE 75 MCG TABLET PO SCH (06:32)
[2017-10-17] MEDS ORDERED: fentaNYL PF VIAL 100 MCG/2 ML VIAL IV PRN ×2 (07:00)
[2017-10-17] MEDS ORDERED: HYDROmorphone 2 MG/ML VIAL IV PRN ×2 (07:00→18:00)
[2017-10-17] MEDS ORDERED: ONDANSETRON PF 4 MG/2 ML VIAL. IV PRN ×2 (07:00→11:15)
[2017-10-17] MEDS ORDERED: MORPHINE SULFATE 2 MG/ML DISP.SYRIN. IV PRN (07:00)
[2017-10-17] MEDS ORDERED: PROCHLORPERAZINE 10 MG/2 ML VIAL. IV PRN (07:00)
[2017-10-17] MEDS ORDERED: IV RINGERS,LACTATED 1000ML 1,000 ML IV SCH (07:00)
[2017-10-17] MEDS ORDERED: LIDOCAINE 1% PF 2 ML VIAL. ID PRN (07:00)
[2017-10-17] MEDS: LACTOBACILLUS RHAMNOSUS GG 1 CAPSULE. PO SCH ×2 (07:42→20:57)
[2017-10-17] MEDS: FLUoxetine HCL 20 MG CAPSULE PO SCH (07:42)
[2017-10-17] MEDS ORDERED: PROPOFOL 20 ML IV ONE ×2 (07:54→07:55)
[2017-10-17] MEDS ORDERED: LIDOCAINE 2% PF Vial for OR 5 ML VIAL. ONE (07:54)
--- NOTE | 2017-10-17 08:38 | PDOC ---
SURGICAL PROGRESS NOTE Subjective Complains of nausea Vital Signs Vital Signs Date Time Temp Pulse Resp B/P (MAP) Pulse Ox O2 Delivery O2 Flow Rate FiO2 10/17/17 07:17 98.9 80 18 95 98.9 10/17/17 06:32 Room Air 10/17/17 03:00 109/69 (82) I&O Intake and Output 10/17/17 06:59 Intake Total 1050 ml Balance 1050 ml Intake Oral 750 ml IV Total 300 ml # Voids 3 PATIENT HAS A CHAVEZ: No General: Alert, Oriented X3, Cooperative, mild distress Abdomen: Normal bowel sounds, Soft, Other (TTP epigastrium) Labs Laboratory Tests Test 10/15/17 18:20 10/15/17 20:25 10/15/17 21:36 10/16/17 05:30 White Blood Count 8.5 x10^3/uL (4.0-11.0) 8.3 x10^3/uL (4.0-11.0) Red Blood Count 4.30 x10^6/uL (3.50-5.40) 4.12 x10^6/uL (3.50-5.40) Hemoglobin 12.1 g/dL (12.0-15.5) 11.3 g/dL (12.0-15.5) Hematocrit 36.7 % (36.0-47.0) 35.6 % (36.0-47.0) Mean Corpuscular Volume 85 fL (79-100) 87 fL (79-100) Mean Corpuscular Hemoglobin 28 pg (25-35) 27 pg (25-35) Mean Corpuscular Hemoglobin Concent 33 g/dL (31-37) 32 g/dL (31-37) Red Cell Distribution Width 14.8 % (11.5-14.5) 14.9 % (11.5-14.5) Platelet Count 343 x10^3/uL (140-400) 311 x10^3/uL (140-400) Neutrophils (%) (Auto) 71 % (31-73) 64 % (31-73) Lymphocytes (%) (Auto) 22 % (24-48) 29 % (24-48) Monocytes (%) (Auto) 5 % (0-9) 5 % (0-9) Eosinophils (%) (Auto) 1 % (0-3) 2 % (0-3) Basophils (%) (Auto) 1 % (0-3) 0 % (0-3) Neutrophils # (Auto) 6.0 x10^3uL (1.8-7.7) 5.3 x10^3uL (1.8-7.7) Lymphocytes # (Auto) 1.9 x10^3/uL (1.0-4.8) 2.4 x10^3/uL (1.0-4.8) Monocytes # (Auto) 0.5 x10^3/uL (0.0-1.1) 0.4 x10^3/uL (0.0-1.1) Eosinophils # (Auto) 0.1 x10^3/uL (0.0-0.7) 0.1 x10^3/uL (0.0-0.7) Basophils # (Auto) 0.1 x10^3/uL (0.0-0.2) 0.0 x10^3/uL (0.0-0.2) Prothrombin Time 13.2 SEC (11.7-14.0) Prothromb Time International Ratio 1.1 (0.8-1.1) Activated Partial Thromboplast Time 27 SEC (24-38) Urine Collection Type Unknown Urine Color Yellow Urine Clarity Clear Urine pH 6.0 Urine Specific [place] <=1.005 Urine Protein Negative mg/dL (NEG-TRACE) Urine Glucose (UA) Negative mg/dL (NEG) Urine Ketones (Stick) Negative mg/dL (NEG) Urine Blood Negative (NEG) Urine Nitrite Negative (NEG) Urine Bilirubin Negative (NEG) Urine Urobilinogen Dipstick 0.2 mg/dL (0.2 mg/dL) Urine Leukocyte Esterase Negative (NEG) Urine RBC 0 /HPF (0-2) Urine WBC 1-4 /HPF (0-4) Urine Squamous Epithelial Cells Mod /LPF Urine Bacteria Moderate /HPF (0-FEW) Sodium Level 138 mmol/L (136-145) 141 mmol/L (136-145) Potassium Level 4.3 mmol/L (3.5-5.1) 3.2 mmol/L (3.5-5.1) Chloride Level 101 mmol/L (98-107) 103 mmol/L (98-107) Carbon Dioxide Level 27 mmol/L (21-32) 25 mmol/L (21-32) Anion Gap 10 (6-14) 13 (6-14) Blood Urea Nitrogen 8 mg/dL (7-20) 8 mg/dL (7-20) Creatinine 0.7 mg/dL (0.6-1.0) 0.8 mg/dL (0.6-1.0) Estimated GFR (Cockcroft-Gault) 95.2 81.6 Glucose Level 143 mg/dL (70-99) 136 mg/dL (70-99) Calcium Level 8.5 mg/dL (8.5-10.1) 8.2 mg/dL (8.5-10.1) Total Bilirubin 0.4 mg/dL (0.2-1.0) Direct Bilirubin 0.1 mg/dL (0.0-0.2) Aspartate Amino Transf (AST/SGOT) 23 U/L (15-37) Alanine Aminotransferase (ALT/SGPT) 61 U/L (14-59) Alkaline Phosphatase 69 U/L (46-116) Creatine Kinase 54 U/L (26-192) Creatine Kinase MB (Mass) < 0.5 ng/mL (0.0-3.6) Creatine Kinase MB Relative Index % (0-4) Troponin I Quantitative < 0.017 ng/mL (0.000-0.055) Total Protein 8.0 g/dL (6.4-8.2) Albumin 3.8 g/dL (3.4-5.0) Lipase 150 U/L (73-393) Urine Opiates Screen Pos (NEG) Urine Methadone Screen Neg (NEG) Urine Barbiturates Neg (NEG) Urine Phencyclidine Screen Neg (NEG) Urine Amphetamine/Methamphetamine Pos (NEG) Urine Benzodiazepines Screen Neg (NEG) Urine Cocaine Screen Neg (NEG) Urine Cannabinoids Screen Neg (NEG) Urine Ethyl Alcohol Neg (NEG) Lactic Acid Level 1.0 mmol/L (0.4-2.0) Glucose (Fingerstick) 124 mg/dL (70-99) Test 10/16/17 07:21 10/16/17 11:36 10/16/17 18:45 10/17/17 04:30 Glucose (Fingerstick) 135 mg/dL (70-99) 144 mg/dL (70-99) 137 mg/dL (70-99) White Blood Count 7.0 x10^3/uL (4.0-11.0) Red Blood Count 4.13 x10^6/uL (3.50-5.40) Hemoglobin 11.7 g/dL (12.0-15.5) Hematocrit 36.0 % (36.0-47.0) Mean Corpuscular Volume 87 fL (79-100) Mean Corpuscular Hemoglobin 28 pg (25-35) Mean Corpuscular Hemoglobin Concent 32 g/dL (31-37) Red Cell Distribution Width 15.1 % (11.5-14.5) Platelet Count 268 x10^3/uL (140-400) Neutrophils (%) (Auto) 67 % (31-73) Lymphocytes (%) (Auto) 25 % (24-48) Monocytes (%) (Auto) 5 % (0-9) Eosinophils (%) (Auto) 2 % (0-3) Basophils (%) (Auto) 0 % (0-3) Neutrophils # (Auto) 4.7 x10^3uL (1.8-7.7) Lymphocytes # (Auto) 1.7 x10^3/uL (1.0-4.8) Monocytes # (Auto) 0.4 x10^3/uL (0.0-1.1) Eosinophils # (Auto) 0.2 x10^3/uL (0.0-0.7) Basophils # (Auto) 0.0 x10^3/uL (0.0-0.2) Sodium Level 139 mmol/L (136-145) Potassium Level 3.7 mmol/L (3.5-5.1) Chloride Level 104 mmol/L (98-107) Carbon Dioxide Level 21 mmol/L (21-32) Anion Gap 14 (6-14) Blood Urea Nitrogen 5 mg/dL (7-20) Creatinine 0.7 mg/dL (0.6-1.0) Estimated GFR (Cockcroft-Gault) 95.2 BUN/Creatinine Ratio 7 (6-20) Glucose Level 132 mg/dL (70-99) Calcium Level 8.1 mg/dL (8.5-10.1) Total Bilirubin 0.4 mg/dL (0.2-1.0) Aspartate Amino Transf (AST/SGOT) 31 U/L (15-37) Alanine Aminotransferase (ALT/SGPT) 51 U/L (14-59) Alkaline Phosphatase 61 U/L (46-116) Total Protein 6.8 g/dL (6.4-8.2) Albumin 3.4 g/dL (3.4-5.0) Albumin/Globulin Ratio 1.0 (1.0-1.7) Laboratory Tests Test 10/16/17 11:36 10/16/17 18:45 10/17/17 04:30 Glucose (Fingerstick) 144 mg/dL (70-99) 137 mg/dL (70-99) White Blood Count 7.0 x10^3/uL (4.0-11.0) Red Blood Count 4.13 x10^6/uL (3.50-5.40) Hemoglobin 11.7 g/dL (12.0-15.5) Hematocrit 36.0 % (36.0-47.0) Mean Corpuscular Volume 87 fL (79-100) Mean Corpuscular Hemoglobin 28 pg (25-35) Mean Corpuscular Hemoglobin Concent 32 g/dL (31-37) Red Cell Distribution Width 15.1 % (11.5-14.5) Platelet Count 268 x10^3/uL (140-400) Neutrophils (%) (Auto) 67 % (31-73) Lymphocytes (%) (Auto) 25 % (24-48) Monocytes (%) (Auto) 5 % (0-9) Eosinophils (%) (Auto) 2 % (0-3) Basophils (%) (Auto) 0 % (0-3) Neutrophils # (Auto) 4.7 x10^3uL (1.8-7.7) Lymphocytes # (Auto) 1.7 x10^3/uL (1.0-4.8) Monocytes # (Auto) 0.4 x10^3/uL (0.0-1.1) Eosinophils # (Auto) 0.2 x10^3/uL (0.0-0.7) Basophils # (Auto) 0.0 x10^3/uL (0.0-0.2) Sodium Level 139 mmol/L (136-145) Potassium Level 3.7 mmol/L (3.5-5.1) Chloride Level 104 mmol/L (98-107) Carbon Dioxide Level 21 mmol/L (21-32) Anion Gap 14 (6-14) Blood Urea Nitrogen 5 mg/dL (7-20) Creatinine 0.7 mg/dL (0.6-1.0) Estimated GFR (Cockcroft-Gault) 95.2 BUN/Creatinine Ratio 7 (6-20) Glucose Level 132 mg/dL (70-99) Calcium Level 8.1 mg/dL (8.5-10.1) Total Bilirubin 0.4 mg/dL (0.2-1.0) Aspartate Amino Transf (AST/SGOT) 31 U/L (15-37) Alanine Aminotransferase (ALT/SGPT) 51 U/L (14-59) Alkaline Phosphatase 61 U/L (46-116) Total Protein 6.8 g/dL (6.4-8.2) Albumin 3.4 g/dL (3.4-5.0) Albumin/Globulin Ratio 1.0 (1.0-1.7) Problem List Problems Medical Problems: (1) Abdominal pain Status: Acute Assessment/Plan Patient had EGD this AM showing duodenal ulcer Will start PPI Problems: WILLIE HAYNES MD Oct 17, 2017 08:38
[2017-10-17 09:00] VITALS: BP 129/88
[2017-10-17] MEDS: CIPROFLOXACIN 400MG PREMIX 200 ML IV SCH ×2 (09:01→22:47)
[2017-10-17] MEDS ORDERED: PANTOPRAZOLE 40 MG TABLET.DR. PO SCH (09:30)
--- NOTE | 2017-10-17 10:50 | PDOC ---
PROGRESS NOTES History of Present Illness History of Present Illness VTE Prophylaxis Ordered VTE Prophylaxis Devices: Yes VTE Pharmacological Prophylaxi: Yes Assessment/Plan Assessment/Plan impression 1. colitis, acute, need ct report from [facility] 2. abdominal pain 3. morbid obesity 4. diabetes 5. hypothyroid state under treatment 6. ADD under rx 7. 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 nausea, will order iv zofran plan iv protonix iv antibiotics, cipro, flagyl iv pain control, dilaudid 1 mg q [address] Quiles following iv fluid support iv zofran npo iv pain control Vitals Vitals Vital Signs Date Time Temp Pulse Resp B/P (MAP) Pulse Ox O2 Delivery O2 Flow Rate FiO2 10/17/17 09:48 95 Room Air 10/17/17 09:00 98.1 84 16 129/88 (102) 98.1 Physical Exam General: Alert, Oriented X3, Cooperative, mild distress, moderate distress Heart: Regular rate, No murmurs Lungs: Clear, Other Abdomen: Normal bowel sounds, Soft, Other (TTP epigastrium) Extremities: No cyanosis, No edema Skin: No rashes, No significant lesion Labs LABS Laboratory Tests Test 10/16/17 11:36 10/16/17 18:45 10/17/17 04:30 10/17/17 09:21 Glucose (Fingerstick) 144 mg/dL (70-99) 137 mg/dL (70-99) 139 mg/dL (70-99) White Blood Count 7.0 x10^3/uL (4.0-11.0) Red Blood Count 4.13 x10^6/uL (3.50-5.40) Hemoglobin 11.7 g/dL (12.0-15.5) Hematocrit 36.0 % (36.0-47.0) Mean Corpuscular Volume 87 fL (79-100) Mean Corpuscular Hemoglobin 28 pg (25-35) Mean Corpuscular Hemoglobin Concent 32 g/dL (31-37) Red Cell Distribution Width 15.1 % (11.5-14.5) Platelet Count 268 x10^3/uL (140-400) Neutrophils (%) (Auto) 67 % (31-73) Lymphocytes (%) (Auto) 25 % (24-48) Monocytes (%) (Auto) 5 % (0-9) Eosinophils (%) (Auto) 2 % (0-3) Basophils (%) (Auto) 0 % (0-3) Neutrophils # (Auto) 4.7 x10^3uL (1.8-7.7) Lymphocytes # (Auto) 1.7 x10^3/uL (1.0-4.8) Monocytes # (Auto) 0.4 x10^3/uL (0.0-1.1) Eosinophils # (Auto) 0.2 x10^3/uL (0.0-0.7) Basophils # (Auto) 0.0 x10^3/uL (0.0-0.2) Sodium Level 139 mmol/L (136-145) Potassium Level 3.7 mmol/L (3.5-5.1) Chloride Level 104 mmol/L (98-107) Carbon Dioxide Level 21 mmol/L (21-32) Anion Gap 14 (6-14) Blood Urea Nitrogen 5 mg/dL (7-20) Creatinine 0.7 mg/dL (0.6-1.0) Estimated GFR (Cockcroft-Gault) 95.2 BUN/Creatinine Ratio 7 (6-20) Glucose Level 132 mg/dL (70-99) Calcium Level 8.1 mg/dL (8.5-10.1) Total Bilirubin 0.4 mg/dL (0.2-1.0) Aspartate Amino Transf (AST/SGOT) 31 U/L (15-37) Alanine Aminotransferase (ALT/SGPT) 51 U/L (14-59) Alkaline Phosphatase 61 U/L (46-116) Total Protein 6.8 g/dL (6.4-8.2) Albumin 3.4 g/dL (3.4-5.0) Albumin/Globulin Ratio 1.0 (1.0-1.7) Assessment and Plan Assessmemt and Plan Problems Medical Problems: (1) Abdominal pain Status: Acute Problems: Comment Review of Relevant I have reviewed the following items chivo (where applicable) has been applied. Labs Laboratory Tests Test 10/15/17 18:20 10/15/17 20:25 10/15/17 21:36 10/16/17 05:30 White Blood Count 8.5 x10^3/uL (4.0-11.0) 8.3 x10^3/uL (4.0-11.0) Red Blood Count 4.30 x10^6/uL (3.50-5.40) 4.12 x10^6/uL (3.50-5.40) Hemoglobin 12.1 g/dL (12.0-15.5) 11.3 g/dL (12.0-15.5) Hematocrit 36.7 % (36.0-47.0) 35.6 % (36.0-47.0) Mean Corpuscular Volume 85 fL (79-100) 87 fL (79-100) Mean Corpuscular Hemoglobin 28 pg (25-35) 27 pg (25-35) Mean Corpuscular Hemoglobin Concent 33 g/dL (31-37) 32 g/dL (31-37) Red Cell Distribution Width 14.8 % (11.5-14.5) 14.9 % (11.5-14.5) Platelet Count 343 x10^3/uL (140-400) 311 x10^3/uL (140-400) Neutrophils (%) (Auto) 71 % (31-73) 64 % (31-73) Lymphocytes (%) (Auto) 22 % (24-48) 29 % (24-48) Monocytes (%) (Auto) 5 % (0-9) 5 % (0-9) Eosinophils (%) (Auto) 1 % (0-3) 2 % (0-3) Basophils (%) (Auto) 1 % (0-3) 0 % (0-3) Neutrophils # (Auto) 6.0 x10^3uL (1.8-7.7) 5.3 x10^3uL (1.8-7.7) Lymphocytes # (Auto) 1.9 x10^3/uL (1.0-4.8) 2.4 x10^3/uL (1.0-4.8) Monocytes # (Auto) 0.5 x10^3/uL (0.0-1.1) 0.4 x10^3/uL (0.0-1.1) Eosinophils # (Auto) 0.1 x10^3/uL (0.0-0.7) 0.1 x10^3/uL (0.0-0.7) Basophils # (Auto) 0.1 x10^3/uL (0.0-0.2) 0.0 x10^3/uL (0.0-0.2) Prothrombin Time 13.2 SEC (11.7-14.0) Prothromb Time International Ratio 1.1 (0.8-1.1) Activated Partial Thromboplast Time 27 SEC (24-38) Urine Collection Type Unknown Urine Color Yellow Urine Clarity Clear Urine pH 6.0 Urine Specific [place] <=1.005 Urine Protein Negative mg/dL (NEG-TRACE) Urine Glucose (UA) Negative mg/dL (NEG) Urine Ketones (Stick) Negative mg/dL (NEG) Urine Blood Negative (NEG) Urine Nitrite Negative (NEG) Urine Bilirubin Negative (NEG) Urine Urobilinogen Dipstick 0.2 mg/dL (0.2 mg/dL) Urine Leukocyte Esterase Negative (NEG) Urine RBC 0 /HPF (0-2) Urine WBC 1-4 /HPF (0-4) Urine Squamous Epithelial Cells Mod /LPF Urine Bacteria Moderate /HPF (0-FEW) Sodium Level 138 mmol/L (136-145) 141 mmol/L (136-145) Potassium Level 4.3 mmol/L (3.5-5.1) 3.2 mmol/L (3.5-5.1) Chloride Level 101 mmol/L (98-107) 103 mmol/L (98-107) Carbon Dioxide Level 27 mmol/L (21-32) 25 mmol/L (21-32) Anion Gap 10 (6-14) 13 (6-14) Blood Urea Nitrogen 8 mg/dL (7-20) 8 mg/dL (7-20) Creatinine 0.7 mg/dL (0.6-1.0) 0.8 mg/dL (0.6-1.0) Estimated GFR (Cockcroft-Gault) 95.2 81.6 Glucose Level 143 mg/dL (70-99) 136 mg/dL (70-99) Calcium Level 8.5 mg/dL (8.5-10.1) 8.2 mg/dL (8.5-10.1) Total Bilirubin 0.4 mg/dL (0.2-1.0) Direct Bilirubin 0.1 mg/dL (0.0-0.2) Aspartate Amino Transf (AST/SGOT) 23 U/L (15-37) Alanine Aminotransferase (ALT/SGPT) 61 U/L (14-59) Alkaline Phosphatase 69 U/L (46-116) Creatine Kinase 54 U/L (26-192) Creatine Kinase MB (Mass) < 0.5 ng/mL (0.0-3.6) Creatine Kinase MB Relative Index % (0-4) Troponin I Quantitative < 0.017 ng/mL (0.000-0.055) Total Protein 8.0 g/dL (6.4-8.2) Albumin 3.8 g/dL (3.4-5.0) Lipase 150 U/L (73-393) Urine Opiates Screen Pos (NEG) Urine Methadone Screen Neg (NEG) Urine Barbiturates Neg (NEG) Urine Phencyclidine Screen Neg (NEG) Urine Amphetamine/Methamphetamine Pos (NEG) Urine Benzodiazepines Screen Neg (NEG) Urine Cocaine Screen Neg (NEG) Urine Cannabinoids Screen Neg (NEG) Urine Ethyl Alcohol Neg (NEG) Lactic Acid Level 1.0 mmol/L (0.4-2.0) Glucose (Fingerstick) 124 mg/dL (70-99) Test 10/16/17 07:21 10/16/17 11:36 10/16/17 18:45 10/17/17 04:30 Glucose (Fingerstick) 135 mg/dL (70-99) 144 mg/dL (70-99) 137 mg/dL (70-99) White Blood Count 7.0 x10^3/uL (4.0-11.0) Red Blood Count 4.13 x10^6/uL (3.50-5.40) Hemoglobin 11.7 g/dL (12.0-15.5) Hematocrit 36.0 % (36.0-47.0) Mean Corpuscular Volume 87 fL (79-100) Mean Corpuscular Hemoglobin 28 pg (25-35) Mean Corpuscular Hemoglobin Concent 32 g/dL (31-37) Red Cell Distribution Width 15.1 % (11.5-14.5) Platelet Count 268 x10^3/uL (140-400) Neutrophils (%) (Auto) 67 % (31-73) Lymphocytes (%) (Auto) 25 % (24-48) Monocytes (%) (Auto) 5 % (0-9) Eosinophils (%) (Auto) 2 % (0-3) Basophils (%) (Auto) 0 % (0-3) Neutrophils # (Auto) 4.7 x10^3uL (1.8-7.7) Lymphocytes # (Auto) 1.7 x10^3/uL (1.0-4.8) Monocytes # (Auto) 0.4 x10^3/uL (0.0-1.1) Eosinophils # (Auto) 0.2 x10^3/uL (0.0-0.7) Basophils # (Auto) 0.0 x10^3/uL (0.0-0.2) Sodium Level 139 mmol/L (136-145) Potassium Level 3.7 mmol/L (3.5-5.1) Chloride Level 104 mmol/L (98-107) Carbon Dioxide Level 21 mmol/L (21-32) Anion Gap 14 (6-14) Blood Urea Nitrogen 5 mg/dL (7-20) Creatinine 0.7 mg/dL (0.6-1.0) Estimated GFR (Cockcroft-Gault) 95.2 BUN/Creatinine Ratio 7 (6-20) Glucose Level 132 mg/dL (70-99) Calcium Level 8.1 mg/dL (8.5-10.1) Total Bilirubin 0.4 mg/dL (0.2-1.0) Aspartate Amino Transf (AST/SGOT) 31 U/L (15-37) Alanine Aminotransferase (ALT/SGPT) 51 U/L (14-59) Alkaline Phosphatase 61 U/L (46-116) Total Protein 6.8 g/dL (6.4-8.2) Albumin 3.4 g/dL (3.4-5.0) Albumin/Globulin Ratio 1.0 (1.0-1.7) Test 10/17/17 09:21 Glucose (Fingerstick) 139 mg/dL (70-99) Laboratory Tests Test 10/16/17 11:36 10/16/17 18:45 10/17/17 04:30 10/17/17 09:21 Glucose (Fingerstick) 144 mg/dL (70-99) 137 mg/dL (70-99) 139 mg/dL (70-99) White Blood Count 7.0 x10^3/uL (4.0-11.0) Red Blood Count 4.13 x10^6/uL (3.50-5.40) Hemoglobin 11.7 g/dL (12.0-15.5) Hematocrit 36.0 % (36.0-47.0) Mean Corpuscular Volume 87 fL (79-100) Mean Corpuscular Hemoglobin 28 pg (25-35) Mean Corpuscular Hemoglobin Concent 32 g/dL (31-37) Red Cell Distribution Width 15.1 % (11.5-14.5) Platelet Count 268 x10^3/uL (140-400) Neutrophils (%) (Auto) 67 % (31-73) Lymphocytes (%) (Auto) 25 % (24-48) Monocytes (%) (Auto) 5 % (0-9) Eosinophils (%) (Auto) 2 % (0-3) Basophils (%) (Auto) 0 % (0-3) Neutrophils # (Auto) 4.7 x10^3uL (1.8-7.7) Lymphocytes # (Auto) 1.7 x10^3/uL (1.0-4.8) Monocytes # (Auto) 0.4 x10^3/uL (0.0-1.1) Eosinophils # (Auto) 0.2 x10^3/uL (0.0-0.7) Basophils # (Auto) 0.0 x10^3/uL (0.0-0.2) Sodium Level 139 mmol/L (136-145) Potassium Level 3.7 mmol/L (3.5-5.1) Chloride Level 104 mmol/L (98-107) Carbon Dioxide Level 21 mmol/L (21-32) Anion Gap 14 (6-14) Blood Urea Nitrogen 5 mg/dL (7-20) Creatinine 0.7 mg/dL (0.6-1.0) Estimated GFR (Cockcroft-Gault) 95.2 BUN/Creatinine Ratio 7 (6-20) Glucose Level 132 mg/dL (70-99) Calcium Level 8.1 mg/dL (8.5-10.1) Total Bilirubin 0.4 mg/dL (0.2-1.0) Aspartate Amino Transf (AST/SGOT) 31 U/L (15-37) Alanine Aminotransferase (ALT/SGPT) 51 U/L (14-59) Alkaline Phosphatase 61 U/L (46-116) Total Protein 6.8 g/dL (6.4-8.2) Albumin 3.4 g/dL (3.4-5.0) Albumin/Globulin Ratio 1.0 (1.0-1.7) Microbiology 10/15/17 Blood Culture - Preliminary, Resulted NO GROWTH AFTER 1 DAY 10/15/17 Urine Culture - Preliminary, Resulted 10/15/17 Urine Culture Result 1 (DAVID) - Preliminary, Resulted Medications Current Medications Fentanyl Citrate (Fentanyl 2ml Vial) 50 mcg PRN Q15MIN PRN IV PAIN GREATER THAN 3/10 Last administered on 10/15/17 19:32; Start 10/15/17 at 18:30; Stop 10/16/17 at 18:29; Status DC Sodium Chloride 1,000 ml @ 1,000 mls/hr Q1H IV Last administered on 18:37; Start 10/15/17 at 18:17; Stop 10/15/17 at 19:16; Status DC Promethazine HCl 25 mg/Sodium Chloride 51 ml @ 101 mls/hr 1X ONCE IV Last administered on 10/15/17 18:37; Start 10/15/17 at 18:30; Stop 10/15/17 at 19 :00; Status DC Hydromorphone HCl (Dilaudid) 1 mg PRN Q15MIN PRN IV/SQ PAIN GREATER THAN 3/10 Last administered on 10/15/17 21:15; Start 10/15/17 at 20:00; Stop 10/16/17 at 19:59; Status DC Ciprofloxacin/ Dextrose 200 ml @ 200 mls/hr Q12HR IV Last administered on 09:01; Start 10/16/17 at 09:00 Metronidazole 100 ml @ 100 mls/hr Q8HRS IV Last administered on 10/17/17 06: 04; Start 10/16/17 at 06:00 Metronidazole 100 ml @ 100 mls/hr 1X ONCE IV Last administered on 10/15/17 22:30; Start 10/15/17 at 20:15; Stop 10/15/17 at 21:14; Status DC Ciprofloxacin/ Dextrose 200 ml @ 200 mls/hr 1X ONCE IV Last administered on 10/15/17 20:27; Start 10/15/17 at 20:15; Stop 10/15/17 at 21:14; Status DC Hydromorphone HCl (Dilaudid) 1 mg PRN Q6HRS PRN IV pain; Start 10/15/17 at 20: 45; Stop 10/15/17 at 22:15; Status DC Hydromorphone HCl (Dilaudid) 1 mg PRN Q3HRS PRN IV pain Last administered on 09:10; Start 10/15/17 at 22:15 Fentanyl Citrate (Fentanyl 2ml Vial) 50 mcg PRN Q2HR PRN IV PAIN; Start at 22:15 Ondansetron HCl (Zofran) 4 mg PRN Q6HRS PRN IV NAUSEA/VOMITING Last administered on 10/16/17 14:52; Start 10/15/17 at 22:15 Sodium Chloride 1,000 ml @ 100 mls/hr Q10H IV Last administered on 10/16/17 23:32; Start 10/15/17 at 22:15 Fluoxetine HCl (PROzac) 60 mg DAILY PO Last administered on 10/16/17 12:39; Start 10/16/17 at 12:00 Acetaminophen/ Hydrocodone Bitart (Lortab 5/325) 1 tab Q6HRS PRN PO MODERATE PAIN; Start 10/16/17 at 11:30; Stop 10/20/17 at 11:29 Levothyroxine Sodium (Synthroid) 75 mcg DAILY07 PO Last administered on 12:39; Start 10/16/17 at 12:00 Lurasidone HCl (Latuda) 40 mg QHS PO ; Start 10/16/17 at 21:00; Status UNV Acetaminophen/ Hydrocodone Bitart (Lortab 5/325) 2 tab Q6HRS PRN PO SEVERE PAIN ; Start 10/16/17 at 11:45; Stop 10/20/17 at 11:29 Sodium Cl/Sod Bicarb/Potass Cl/ PEG (Golytely) 4,000 ml 1X ONCE PO Last administered on 10/16/17 14:01; Start 10/16/17 at 14:00; Stop 10/16/17 at 16 :03; Status DC Bisacodyl (Dulcolax Tab) 10 mg 1X ONCE PO Last administered on 10/16/17 12: 39; Start 10/16/17 at 13:00; Stop 10/16/17 at 13:01; Status DC Lactobacillus Rhamnosus (Culturelle) 1 cap BID PO ; Start 10/16/17 at 21:00 Ondansetron HCl (Zofran) 4 mg PRN Q6HRS PRN IV NAUSEA/VOMITING; Start at 07:00; Stop 10/18/17 at 06:59 Fentanyl Citrate (Fentanyl 2ml Vial) 25 mcg PRN Q5MIN PRN IV MILD PAIN; Start 10/17/17 at 07:00; Stop 10/18/17 at 06:59 Fentanyl Citrate (Fentanyl 2ml Vial) 50 mcg PRN Q5MIN PRN IV MODERATE TO SEVERE PAIN; Start 10/17/17 at 07:00; Stop 10/18/17 at 06:59 Morphine Sulfate 1 mg PRN Q10MIN PRN IV SEVERE PAIN; Start 10/17/17 at 07:00; Stop 10/18/17 at 06:59; Status UNV Ringer's Solution 1,000 ml @ 30 mls/hr Q24H IV Last administered on 07:22; Start 10/17/17 at 07:00; Stop 10/17/17 at 18:59 Lidocaine HCl (Xylocaine-Mpf 1% Vial) 2 ml PRN 1X PRN ID IV START; Start 10/17 at 07:00; Stop 10/18/17 at 06:59 Hydromorphone HCl (Dilaudid) 0.5 mg PRN Q10MIN PRN IV SEV PAIN, Second choice; Start 10/17/17 at 07:00; Stop 10/18/17 at 06:59 Prochlorperazine Edisylate (Compazine) 5 mg PACU PRN PRN IV NAUSEA, MRX1; Start 10/17/17 at 07:00; Stop 10/18/17 at 06:59 Metoclopramide HCl (Reglan Vial) 10 mg PRN Q6HRS PRN IV NAUSEA/VOMITING Last administered on 10/17/17 02:48; Start 10/16/17 at 16:00 Iohexol (Omnipaque 300 Mg/ml) 75 ml 1X ONCE IV Last administered on 16:26; Start 10/16/17 at 16:15; Stop 10/16/17 at 16:16; Status DC Info (Do NOT chart on this entry -- for MONITORING) 1 each PRN DAILY PRN MC SEE COMMENTS; Start 10/16/17 at 16:15; Stop 10/18/17 at 16:14 Propofol 20 ml @ As Directed STK-MED ONCE IV ; Start 10/17/17 at 07:54; Stop 10/17/17 at 07:55; Status DC Lidocaine HCl (Lidocaine Pf 2% Vial) 5 ml STK-MED ONCE .ROUTE ; Start 10/17/17 at 07:54; Stop 10/17/17 at 07:55; Status DC Propofol 20 ml @ As Directed STK-MED ONCE IV ; Start 10/17/17 at 07:55; Stop 10/17/17 at 07:56; Status DC Pantoprazole Sodium (Protonix) 40 mg DAILYAC PO Last administered on 09:23; Start 10/17/17 at 09:30 Active Scripts Active [place] 5-325 Tablet (Acetaminophen/Hydrocodone Bitart) 1 Each Tablet 1-2 Tab PO Q4-6HRS [Oxycodone Hcl/Acetaminophen] 1 TAB Tablet 1 Tab PO PRN Q4HRS PRN Reported Prozac (Fluoxetine Hcl) 20 Mg Capsule 60 Mg PO DAILY Latuda (Lurasidone Hcl) 40 Mg Tablet 1 Tab PO QHS Vyvanse (Lisdexamfetamine Dimesylate) 50 Mg Capsule 50 Mg PO DAILY Levothyroxine Sodium 75 Mcg Tablet 1 Tab PO DAILY Metformin Hcl 1,000 Mg Tablet 1 Tab PO BID Vitals/I & O Vital Sign - Last 24 Hours 10/16/17 10/16/17 10/16/17 10/16/17 10:54 14:02 14:51 17:11 Temp 98.0 98.7 98.0 98.7 Pulse 84 75 Resp 18 18 18 18 B/P (MAP) 119/77 (91) 124/76 (92) Pulse Ox 94 97 O2 Delivery Room Air Room Air Room Air Room Air 10/16/17 10/16/17 10/16/17 10/16/17 17:41 19:00 20:00 20:32 Temp 99.3 99.3 Pulse 83 Resp 18 18 B/P (MAP) 108/63 (78) Pulse Ox 95 95 O2 Delivery Room Air Room Air Room Air 10/16/17 10/16/17 10/17/17 10/17/17 23:00 23:32 02:49 03:00 Temp 97.9 97.9 97.9 97.9 Pulse 80 86 Resp 18 18 B/P (MAP) 113/71 (85) 109/69 (82) Pulse Ox 96 96 96 97 O2 Delivery Room Air Room Air Room Air Room Air 10/17/17 10/17/17 10/17/17 10/17/17 06:04 07:17 08:00 08:15 Temp 98.9 98.0 98.9 98.0 Pulse 80 88 Resp 18 18 B/P (MAP) 117/70 Pulse Ox 97 95 92 O2 Delivery Room Air Room Air Room Air 10/17/17 10/17/17 10/17/17 10/17/17 08:30 09:00 09:10 09:48 Temp 98.0 98.1 98.0 98.1 Pulse 84 84 Resp 18 16 B/P (MAP) 126/74 129/88 (102) Pulse Ox 95 94 95 95 O2 Delivery Room Air Room Air Room Air Room Air Intake and Output 10/16/17 10/16/17 10/17/17 15:00 23:00 07:00 Intake Total 950 ml 100 ml Balance 950 ml 100 ml WILLIE ANNE MD Oct 17, 2017 10:50
[2017-10-17 11:00] VITALS: BP 120/68
[2017-10-17] MEDS ORDERED: HYDROmorphone 2 MG/ML VIAL IV ONE ×2 (11:15→18:00)
[2017-10-17] MEDS: PANTOPRAZOLE SODIUM IV DRIP 80 MG in IV NORMAL SALINE 100ML 100 ML IV SCH (11:21)
[2017-10-17] MEDS: ONDANSETRON PF 4 MG/2 ML VIAL. IV PRN (11:21)
[2017-10-17] MEDS: POTASSIUM CHLORIDE 10MEQ 100 ML IV SCH ×2 (12:51→17:25)
[2017-10-17 15:00] VITALS: BP 118/72
[2017-10-17 19:00] VITALS: BP 117/77
[2017-10-17] MEDS: LURASIDONE 40 MG TABLET. PO SCH (21:00)
[2017-10-17 23:00] VITALS: BP 127/76
[2017-10-18] MEDS: PANTOPRAZOLE SODIUM IV DRIP 80 MG in IV NORMAL SALINE 100ML 100 ML IV SCH ×3 (02:41→17:00)
[2017-10-18 03:00] VITALS: BP 109/65
[2017-10-18] MEDS: HYDROmorphone 2 MG/ML VIAL IV PRN ×8 (03:09→22:44)
[2017-10-18] MEDS: IV 1/2 NORMAL SALINE 1,000 ML IV SCH ×3 (06:08→19:33)
[2017-10-18 07:00] VITALS: BP 122/68
[2017-10-18 07:49] LABS: BASO % 0 % (0-3); EOS % 2 % (0-3); HEMATOCRIT 34.2 % (36.0-47.0); HEMOGLOBIN 11.4 g/dL (12.0-15.5); LYMPH # 1.6 x10^3/uL (1.0-4.8); LYMPH % 27 % (24-48); MEAN CORPUSCULAR HEMOGLOBIN 29 pg (25-35); MEAN CORPUSCULAR HGB CONC 33 g/dL (31-37); MEAN CORPUSCULAR VOLUME 86 fL (79-100); MONO % 6 % (0-9); NEUT % 65 % (31-73); PLATELET COUNT 263 x10^3/uL (140-400); RED BLOOD COUNT 3.97 x10^6/uL (3.50-5.40); RED CELL DISTRIBUTION WIDTH 14.7 % (11.5-14.5)
[2017-10-18 08:15] LABS: CALCIUM 8.4 mg/dL (8.5-10.1); CREATININE 0.7 mg/dL (0.6-1.0); GFR 95.2; POTASSIUM 3.6 mmol/L (3.5-5.1)
[2017-10-18] MEDS: LEVOTHYROXINE 75 MCG TABLET PO SCH (08:40)
[2017-10-18] MEDS: ONDANSETRON PF 4 MG/2 ML VIAL. IV PRN (08:41)
[2017-10-18] MEDS: LACTOBACILLUS RHAMNOSUS GG 1 CAPSULE. PO SCH ×2 (08:41→20:40)
[2017-10-18] MEDS: FLUoxetine HCL 20 MG CAPSULE PO SCH (08:41)
[2017-10-18] MEDS: CIPROFLOXACIN 400MG PREMIX 200 ML IV SCH ×2 (08:42→20:40)
--- NOTE | 2017-10-18 09:51 | PDOC ---
HARSHAD [employer]EN [employer] 10/18/17 0951: SURGICAL PROGRESS NOTE Subjective pain persists--worse with eating nausea Vital Signs Vital Signs Date Time Temp Pulse Resp B/P (MAP) Pulse Ox O2 Delivery O2 Flow Rate FiO2 10/18/17 09:42 94 Room Air 10/18/17 07:00 97.5 83 22 122/68 (86) 97.5 I&O Intake and Output 10/18/17 07:00 Intake Total 1630 ml Output Total 500 ml Balance 1130 ml Intake Oral 830 ml IV Total 800 ml Output Urine Total 500 ml # Voids 3 General: Alert, Oriented X3, Cooperative, No acute distress Abdomen: Soft, Other (epigastric TTP) Labs Laboratory Tests Test 10/16/17 11:36 10/16/17 18:45 10/17/17 04:30 10/17/17 09:21 Glucose (Fingerstick) 144 mg/dL (70-99) 137 mg/dL (70-99) 139 mg/dL (70-99) White Blood Count 7.0 x10^3/uL (4.0-11.0) Red Blood Count 4.13 x10^6/uL (3.50-5.40) Hemoglobin 11.7 g/dL (12.0-15.5) Hematocrit 36.0 % (36.0-47.0) Mean Corpuscular Volume 87 fL (79-100) Mean Corpuscular Hemoglobin 28 pg (25-35) Mean Corpuscular Hemoglobin Concent 32 g/dL (31-37) Red Cell Distribution Width 15.1 % (11.5-14.5) Platelet Count 268 x10^3/uL (140-400) Neutrophils (%) (Auto) 67 % (31-73) Lymphocytes (%) (Auto) 25 % (24-48) Monocytes (%) (Auto) 5 % (0-9) Eosinophils (%) (Auto) 2 % (0-3) Basophils (%) (Auto) 0 % (0-3) Neutrophils # (Auto) 4.7 x10^3uL (1.8-7.7) Lymphocytes # (Auto) 1.7 x10^3/uL (1.0-4.8) Monocytes # (Auto) 0.4 x10^3/uL (0.0-1.1) Eosinophils # (Auto) 0.2 x10^3/uL (0.0-0.7) Basophils # (Auto) 0.0 x10^3/uL (0.0-0.2) Sodium Level 139 mmol/L (136-145) Potassium Level 3.7 mmol/L (3.5-5.1) Chloride Level 104 mmol/L (98-107) Carbon Dioxide Level 21 mmol/L (21-32) Anion Gap 14 (6-14) Blood Urea Nitrogen 5 mg/dL (7-20) Creatinine 0.7 mg/dL (0.6-1.0) Estimated GFR (Cockcroft-Gault) 95.2 BUN/Creatinine Ratio 7 (6-20) Glucose Level 132 mg/dL (70-99) Calcium Level 8.1 mg/dL (8.5-10.1) Total Bilirubin 0.4 mg/dL (0.2-1.0) Aspartate Amino Transf (AST/SGOT) 31 U/L (15-37) Alanine Aminotransferase (ALT/SGPT) 51 U/L (14-59) Alkaline Phosphatase 61 U/L (46-116) Total Protein 6.8 g/dL (6.4-8.2) Albumin 3.4 g/dL (3.4-5.0) Albumin/Globulin Ratio 1.0 (1.0-1.7) Test 10/17/17 11:44 10/17/17 16:53 10/18/17 07:05 10/18/17 07:17 Glucose (Fingerstick) 146 mg/dL (70-99) 169 mg/dL (70-99) 118 mg/dL (70-99) White Blood Count 6.0 x10^3/uL (4.0-11.0) Red Blood Count 3.97 x10^6/uL (3.50-5.40) Hemoglobin 11.4 g/dL (12.0-15.5) Hematocrit 34.2 % (36.0-47.0) Mean Corpuscular Volume 86 fL (79-100) Mean Corpuscular Hemoglobin 29 pg (25-35) Mean Corpuscular Hemoglobin Concent 33 g/dL (31-37) Red Cell Distribution Width 14.7 % (11.5-14.5) Platelet Count 263 x10^3/uL (140-400) Neutrophils (%) (Auto) 65 % (31-73) Lymphocytes (%) (Auto) 27 % (24-48) Monocytes (%) (Auto) 6 % (0-9) Eosinophils (%) (Auto) 2 % (0-3) Basophils (%) (Auto) 0 % (0-3) Neutrophils # (Auto) 3.9 x10^3uL (1.8-7.7) Lymphocytes # (Auto) 1.6 x10^3/uL (1.0-4.8) Monocytes # (Auto) 0.4 x10^3/uL (0.0-1.1) Eosinophils # (Auto) 0.1 x10^3/uL (0.0-0.7) Basophils # (Auto) 0.0 x10^3/uL (0.0-0.2) Sodium Level 140 mmol/L (136-145) Potassium Level 3.6 mmol/L (3.5-5.1) Chloride Level 105 mmol/L (98-107) Carbon Dioxide Level 26 mmol/L (21-32) Anion Gap 9 (6-14) Blood Urea Nitrogen 3 mg/dL (7-20) Creatinine 0.7 mg/dL (0.6-1.0) Estimated GFR (Cockcroft-Gault) 95.2 Glucose Level 128 mg/dL (70-99) Calcium Level 8.4 mg/dL (8.5-10.1) Laboratory Tests Test 10/17/17 11:44 10/17/17 16:53 10/18/17 07:05 10/18/17 07:17 Glucose (Fingerstick) 146 mg/dL (70-99) 169 mg/dL (70-99) 118 mg/dL (70-99) White Blood Count 6.0 x10^3/uL (4.0-11.0) Red Blood Count 3.97 x10^6/uL (3.50-5.40) Hemoglobin 11.4 g/dL (12.0-15.5) Hematocrit 34.2 % (36.0-47.0) Mean Corpuscular Volume 86 fL (79-100) Mean Corpuscular Hemoglobin 29 pg (25-35) Mean Corpuscular Hemoglobin Concent 33 g/dL (31-37) Red Cell Distribution Width 14.7 % (11.5-14.5) Platelet Count 263 x10^3/uL (140-400) Neutrophils (%) (Auto) 65 % (31-73) Lymphocytes (%) (Auto) 27 % (24-48) Monocytes (%) (Auto) 6 % (0-9) Eosinophils (%) (Auto) 2 % (0-3) Basophils (%) (Auto) 0 % (0-3) Neutrophils # (Auto) 3.9 x10^3uL (1.8-7.7) Lymphocytes # (Auto) 1.6 x10^3/uL (1.0-4.8) Monocytes # (Auto) 0.4 x10^3/uL (0.0-1.1) Eosinophils # (Auto) 0.1 x10^3/uL (0.0-0.7) Basophils # (Auto) 0.0 x10^3/uL (0.0-0.2) Sodium Level 140 mmol/L (136-145) Potassium Level 3.6 mmol/L (3.5-5.1) Chloride Level 105 mmol/L (98-107) Carbon Dioxide Level 26 mmol/L (21-32) Anion Gap 9 (6-14) Blood Urea Nitrogen 3 mg/dL (7-20) Creatinine 0.7 mg/dL (0.6-1.0) Estimated GFR (Cockcroft-Gault) 95.2 Glucose Level 128 mg/dL (70-99) Calcium Level 8.4 mg/dL (8.5-10.1) Problem List Problems Medical Problems: (1) Abdominal pain Status: Acute Assessment/Plan DU--continue PPI, limit PO intake until pain improved Problems: WILLIE HAYNES MD 10/18/17 1624: SURGICAL PROGRESS NOTE Assessment/Plan Agree with Ketty's assessment and plan. Problems: HARSHAD ROSEN APRN Oct 18, 2017 09:51 WILLIE HAYNES MD Oct 18, 2017 16:24
--- NOTE | 2017-10-18 10:41 | PDOC ---
PROGRESS NOTES Chief Complaint Chief Complaint Abdominal pain 1. colitis 2. Duodenal ulcer 3. morbid obesity 4. diabetes 5. hypothyroid state under treatment History of Present Illness History of Present Illness Patient seen and examined. No acute events overnight. Still experiencing abdominal pain. Was not able to complete scope yesterday according to patient could not tolerate bowel prep. Denies nausea/vomiting, fevers/chills. Vitals Vitals Vital Signs Date Time Temp Pulse Resp B/P (MAP) Pulse Ox O2 Delivery O2 Flow Rate FiO2 10/18/17 09:42 94 Room Air 10/18/17 07:00 97.5 83 22 122/68 (86) 97.5 Physical Exam General: Alert, Oriented X3, Cooperative, No acute distress Heart: Regular rate, No murmurs Lungs: Clear, Other Abdomen: Soft, Other (epigastric TTP) Extremities: No cyanosis, No edema Skin: No rashes, No significant lesion Labs LABS Laboratory Tests Test 10/17/17 11:44 10/17/17 16:53 10/18/17 07:05 10/18/17 07:17 Glucose (Fingerstick) 146 mg/dL (70-99) 169 mg/dL (70-99) 118 mg/dL (70-99) White Blood Count 6.0 x10^3/uL (4.0-11.0) Red Blood Count 3.97 x10^6/uL (3.50-5.40) Hemoglobin 11.4 g/dL (12.0-15.5) Hematocrit 34.2 % (36.0-47.0) Mean Corpuscular Volume 86 fL (79-100) Mean Corpuscular Hemoglobin 29 pg (25-35) Mean Corpuscular Hemoglobin Concent 33 g/dL (31-37) Red Cell Distribution Width 14.7 % (11.5-14.5) Platelet Count 263 x10^3/uL (140-400) Neutrophils (%) (Auto) 65 % (31-73) Lymphocytes (%) (Auto) 27 % (24-48) Monocytes (%) (Auto) 6 % (0-9) Eosinophils (%) (Auto) 2 % (0-3) Basophils (%) (Auto) 0 % (0-3) Neutrophils # (Auto) 3.9 x10^3uL (1.8-7.7) Lymphocytes # (Auto) 1.6 x10^3/uL (1.0-4.8) Monocytes # (Auto) 0.4 x10^3/uL (0.0-1.1) Eosinophils # (Auto) 0.1 x10^3/uL (0.0-0.7) Basophils # (Auto) 0.0 x10^3/uL (0.0-0.2) Sodium Level 140 mmol/L (136-145) Potassium Level 3.6 mmol/L (3.5-5.1) Chloride Level 105 mmol/L (98-107) Carbon Dioxide Level 26 mmol/L (21-32) Anion Gap 9 (6-14) Blood Urea Nitrogen 3 mg/dL (7-20) Creatinine 0.7 mg/dL (0.6-1.0) Estimated GFR (Cockcroft-Gault) 95.2 Glucose Level 128 mg/dL (70-99) Calcium Level 8.4 mg/dL (8.5-10.1) Review of Systems Review of Systems Denies nausea/vomiting, fevers/chills. +abdominal pain Assessment and Plan Assessmemt and Plan Problems Medical Problems: (1) Abdominal pain Status: Acute Abdominal pain 1. colitis 2. Duodenal ulcer 3. morbid obesity 4. diabetes 5. hypothyroid state under treatment Plan: Recheck AM labs IV protonix IV ciprofloxacin, Flagyl IV pain control, dilaudid 1 mg q 3 hrs IV fluid support PRN Antiemesis PT/OT dr Quiles following Problems: Comment Review of Relevant I have reviewed the following items chivo (where applicable) has been applied. Labs Laboratory Tests Test 10/16/17 11:36 10/16/17 18:45 10/17/17 04:30 10/17/17 09:21 Glucose (Fingerstick) 144 mg/dL (70-99) 137 mg/dL (70-99) 139 mg/dL (70-99) White Blood Count 7.0 x10^3/uL (4.0-11.0) Red Blood Count 4.13 x10^6/uL (3.50-5.40) Hemoglobin 11.7 g/dL (12.0-15.5) Hematocrit 36.0 % (36.0-47.0) Mean Corpuscular Volume 87 fL (79-100) Mean Corpuscular Hemoglobin 28 pg (25-35) Mean Corpuscular Hemoglobin Concent 32 g/dL (31-37) Red Cell Distribution Width 15.1 % (11.5-14.5) Platelet Count 268 x10^3/uL (140-400) Neutrophils (%) (Auto) 67 % (31-73) Lymphocytes (%) (Auto) 25 % (24-48) Monocytes (%) (Auto) 5 % (0-9) Eosinophils (%) (Auto) 2 % (0-3) Basophils (%) (Auto) 0 % (0-3) Neutrophils # (Auto) 4.7 x10^3uL (1.8-7.7) Lymphocytes # (Auto) 1.7 x10^3/uL (1.0-4.8) Monocytes # (Auto) 0.4 x10^3/uL (0.0-1.1) Eosinophils # (Auto) 0.2 x10^3/uL (0.0-0.7) Basophils # (Auto) 0.0 x10^3/uL (0.0-0.2) Sodium Level 139 mmol/L (136-145) Potassium Level 3.7 mmol/L (3.5-5.1) Chloride Level 104 mmol/L (98-107) Carbon Dioxide Level 21 mmol/L (21-32) Anion Gap 14 (6-14) Blood Urea Nitrogen 5 mg/dL (7-20) Creatinine 0.7 mg/dL (0.6-1.0) Estimated GFR (Cockcroft-Gault) 95.2 BUN/Creatinine Ratio 7 (6-20) Glucose Level 132 mg/dL (70-99) Calcium Level 8.1 mg/dL (8.5-10.1) Total Bilirubin 0.4 mg/dL (0.2-1.0) Aspartate Amino Transf (AST/SGOT) 31 U/L (15-37) Alanine Aminotransferase (ALT/SGPT) 51 U/L (14-59) Alkaline Phosphatase 61 U/L (46-116) Total Protein 6.8 g/dL (6.4-8.2) Albumin 3.4 g/dL (3.4-5.0) Albumin/Globulin Ratio 1.0 (1.0-1.7) Test 10/17/17 11:44 10/17/17 16:53 10/18/17 07:05 10/18/17 07:17 Glucose (Fingerstick) 146 mg/dL (70-99) 169 mg/dL (70-99) 118 mg/dL (70-99) White Blood Count 6.0 x10^3/uL (4.0-11.0) Red Blood Count 3.97 x10^6/uL (3.50-5.40) Hemoglobin 11.4 g/dL (12.0-15.5) Hematocrit 34.2 % (36.0-47.0) Mean Corpuscular Volume 86 fL (79-100) Mean Corpuscular Hemoglobin 29 pg (25-35) Mean Corpuscular Hemoglobin Concent 33 g/dL (31-37) Red Cell Distribution Width 14.7 % (11.5-14.5) Platelet Count 263 x10^3/uL (140-400) Neutrophils (%) (Auto) 65 % (31-73) Lymphocytes (%) (Auto) 27 % (24-48) Monocytes (%) (Auto) 6 % (0-9) Eosinophils (%) (Auto) 2 % (0-3) Basophils (%) (Auto) 0 % (0-3) Neutrophils # (Auto) 3.9 x10^3uL (1.8-7.7) Lymphocytes # (Auto) 1.6 x10^3/uL (1.0-4.8) Monocytes # (Auto) 0.4 x10^3/uL (0.0-1.1) Eosinophils # (Auto) 0.1 x10^3/uL (0.0-0.7) Basophils # (Auto) 0.0 x10^3/uL (0.0-0.2) Sodium Level 140 mmol/L (136-145) Potassium Level 3.6 mmol/L (3.5-5.1) Chloride Level 105 mmol/L (98-107) Carbon Dioxide Level 26 mmol/L (21-32) Anion Gap 9 (6-14) Blood Urea Nitrogen 3 mg/dL (7-20) Creatinine 0.7 mg/dL (0.6-1.0) Estimated GFR (Cockcroft-Gault) 95.2 Glucose Level 128 mg/dL (70-99) Calcium Level 8.4 mg/dL (8.5-10.1) Laboratory Tests Test 10/17/17 11:44 10/17/17 16:53 10/18/17 07:05 10/18/17 07:17 Glucose (Fingerstick) 146 mg/dL (70-99) 169 mg/dL (70-99) 118 mg/dL (70-99) White Blood Count 6.0 x10^3/uL (4.0-11.0) Red Blood Count 3.97 x10^6/uL (3.50-5.40) Hemoglobin 11.4 g/dL (12.0-15.5) Hematocrit 34.2 % (36.0-47.0) Mean Corpuscular Volume 86 fL (79-100) Mean Corpuscular Hemoglobin 29 pg (25-35) Mean Corpuscular Hemoglobin Concent 33 g/dL (31-37) Red Cell Distribution Width 14.7 % (11.5-14.5) Platelet Count 263 x10^3/uL (140-400) Neutrophils (%) (Auto) 65 % (31-73) Lymphocytes (%) (Auto) 27 % (24-48) Monocytes (%) (Auto) 6 % (0-9) Eosinophils (%) (Auto) 2 % (0-3) Basophils (%) (Auto) 0 % (0-3) Neutrophils # (Auto) 3.9 x10^3uL (1.8-7.7) Lymphocytes # (Auto) 1.6 x10^3/uL (1.0-4.8) Monocytes # (Auto) 0.4 x10^3/uL (0.0-1.1) Eosinophils # (Auto) 0.1 x10^3/uL (0.0-0.7) Basophils # (Auto) 0.0 x10^3/uL (0.0-0.2) Sodium Level 140 mmol/L (136-145) Potassium Level 3.6 mmol/L (3.5-5.1) Chloride Level 105 mmol/L (98-107) Carbon Dioxide Level 26 mmol/L (21-32) Anion Gap 9 (6-14) Blood Urea Nitrogen 3 mg/dL (7-20) Creatinine 0.7 mg/dL (0.6-1.0) Estimated GFR (Cockcroft-Gault) 95.2 Glucose Level 128 mg/dL (70-99) Calcium Level 8.4 mg/dL (8.5-10.1) Microbiology 10/15/17 Blood Culture - Preliminary, Resulted NO GROWTH AFTER 2 DAYS 10/15/17 Urine Culture - Final, Complete 10/15/17 Urine Culture Result 1 (DAVID) - Final, Complete Medications Current Medications Fentanyl Citrate (Fentanyl 2ml Vial) 50 mcg PRN Q15MIN PRN IV PAIN GREATER THAN 3/10 Last administered on 10/15/17 19:32; Start 10/15/17 at 18:30; Stop 10/16/17 at 18:29; Status DC Sodium Chloride 1,000 ml @ 1,000 mls/hr Q1H IV Last administered on 18:37; Start 10/15/17 at 18:17; Stop 10/15/17 at 19:16; Status DC Promethazine HCl 25 mg/Sodium Chloride 51 ml @ 101 mls/hr 1X ONCE IV Last administered on 10/15/17 18:37; Start 10/15/17 at 18:30; Stop 10/15/17 at 19 :00; Status DC Hydromorphone HCl (Dilaudid) 1 mg PRN Q15MIN PRN IV/SQ PAIN GREATER THAN 3/10 Last administered on 10/15/17 21:15; Start 10/15/17 at 20:00; Stop 10/16/17 at 19:59; Status DC Ciprofloxacin/ Dextrose 200 ml @ 200 mls/hr Q12HR IV Last administered on 08:42; Start 10/16/17 at 09:00 Metronidazole 100 ml @ 100 mls/hr Q8HRS IV Last administered on 10/18/17 06: 08; Start 10/16/17 at 06:00 Metronidazole 100 ml @ 100 mls/hr 1X ONCE IV Last administered on 10/15/17 22:30; Start 10/15/17 at 20:15; Stop 10/15/17 at 21:14; Status DC Ciprofloxacin/ Dextrose 200 ml @ 200 mls/hr 1X ONCE IV Last administered on 10/15/17 20:27; Start 10/15/17 at 20:15; Stop 10/15/17 at 21:14; Status DC Hydromorphone HCl (Dilaudid) 1 mg PRN Q6HRS PRN IV pain; Start 10/15/17 at 20: 45; Stop 10/15/17 at 22:15; Status DC Hydromorphone HCl (Dilaudid) 1 mg PRN Q3HRS PRN IV pain Last administered on 17:25; Start 10/15/17 at 22:15; Stop 10/17/17 at 17:51; Status DC Fentanyl Citrate (Fentanyl 2ml Vial) 50 mcg PRN Q2HR PRN IV PAIN; Start at 22:15; Stop 10/17/17 at 17:51; Status DC Ondansetron HCl (Zofran) 4 mg PRN Q6HRS PRN IV NAUSEA/VOMITING Last administered on 10/18/17 08:41; Start 10/15/17 at 22:15 Sodium Chloride 1,000 ml @ 100 mls/hr Q10H IV Last administered on 10/18/17 08:42; Start 10/15/17 at 22:15 Fluoxetine HCl (PROzac) 60 mg DAILY PO Last administered on 10/18/17 08:41; Start 10/16/17 at 12:00 Acetaminophen/ Hydrocodone Bitart (Lortab 5/325) 1 tab Q6HRS PRN PO MODERATE PAIN; Start 10/16/17 at 11:30; Stop 10/20/17 at 11:29 Levothyroxine Sodium (Synthroid) 75 mcg DAILY07 PO Last administered on 08:40; Start 10/16/17 at 12:00 Lurasidone HCl (Latuda) 40 mg QHS PO ; Start 10/16/17 at 21:00; Status UNV Acetaminophen/ Hydrocodone Bitart (Lortab 5/325) 2 tab Q6HRS PRN PO SEVERE PAIN ; Start 10/16/17 at 11:45; Stop 10/20/17 at 11:29 Sodium Cl/Sod Bicarb/Potass Cl/ PEG (Golytely) 4,000 ml 1X ONCE PO Last administered on 10/16/17 14:01; Start 10/16/17 at 14:00; Stop 10/16/17 at 16 :03; Status DC Bisacodyl (Dulcolax Tab) 10 mg 1X ONCE PO Last administered on 10/16/17 12: 39; Start 10/16/17 at 13:00; Stop 10/16/17 at 13:01; Status DC Lactobacillus Rhamnosus (Culturelle) 1 cap BID PO Last administered on 08:41; Start 10/16/17 at 21:00 Ondansetron HCl (Zofran) 4 mg PRN Q6HRS PRN IV NAUSEA/VOMITING; Start at 07:00; Stop 10/18/17 at 06:59; Status DC Fentanyl Citrate (Fentanyl 2ml Vial) 25 mcg PRN Q5MIN PRN IV MILD PAIN; Start 10/17/17 at 07:00; Stop 10/17/17 at 17:51; Status DC Fentanyl Citrate (Fentanyl 2ml Vial) 50 mcg PRN Q5MIN PRN IV MODERATE TO SEVERE PAIN; Start 10/17/17 at 07:00; Stop 10/17/17 at 17:51; Status DC Morphine Sulfate 1 mg PRN Q10MIN PRN IV SEVERE PAIN; Start 10/17/17 at 07:00; Stop 10/18/17 at 06:59; Status UNV Ringer's Solution 1,000 ml @ 30 mls/hr Q24H IV Last administered on 07:22; Start 10/17/17 at 07:00; Stop 10/17/17 at 18:59; Status DC Lidocaine HCl (Xylocaine-Mpf 1% Vial) 2 ml PRN 1X PRN ID IV START; Start 10/17 at 07:00; Stop 10/18/17 at 06:59; Status DC Hydromorphone HCl (Dilaudid) 0.5 mg PRN Q10MIN PRN IV SEV PAIN, Second choice; Start 10/17/17 at 07:00; Stop 10/17/17 at 17:51; Status DC Prochlorperazine Edisylate (Compazine) 5 mg PACU PRN PRN IV NAUSEA, MRX1; Start 10/17/17 at 07:00; Stop 10/18/17 at 06:59; Status DC Metoclopramide HCl (Reglan Vial) 10 mg PRN Q6HRS PRN IV NAUSEA/VOMITING Last administered on 10/17/17 02:48; Start 10/16/17 at 16:00 Iohexol (Omnipaque 300 Mg/ml) 75 ml 1X ONCE IV Last administered on 16:26; Start 10/16/17 at 16:15; Stop 10/16/17 at 16:16; Status DC Info (Do NOT chart on this entry -- for MONITORING) 1 each PRN DAILY PRN MC SEE COMMENTS; Start 10/16/17 at 16:15; Stop 10/18/17 at 16:14 Propofol 20 ml @ As Directed STK-MED ONCE IV ; Start 10/17/17 at 07:54; Stop 10/17/17 at 07:55; Status DC Lidocaine HCl (Lidocaine Pf 2% Vial) 5 ml STK-MED ONCE .ROUTE ; Start 10/17/17 at 07:54; Stop 10/17/17 at 07:55; Status DC Propofol 20 ml @ As Directed STK-MED ONCE IV ; Start 10/17/17 at 07:55; Stop 10/17/17 at 07:56; Status DC Pantoprazole Sodium (Protonix) 40 mg DAILYAC PO Last administered on 09:23; Start 10/17/17 at 09:30; Stop 10/17/17 at 11:03; Status DC Pantoprazole Sodium 80 mg/ Sodium Chloride 100 ml @ 10 mls/hr Q10H IV Last administered on 10/18/17 08:41; Start 10/17/17 at 11:00 Ondansetron HCl (Zofran) 4 mg PRN Q6HRS PRN IV NAUSEA/VOMITING 1ST CHOICE; Start 10/17/17 at 11:15; Stop 10/17/17 at 16:01; Status DC Hydromorphone HCl (Dilaudid) 1 mg 1X ONCE IV Last administered on 10/17/17 11:11; Start 10/17/17 at 11:15; Stop 10/17/17 at 17:51; Status DC Potassium Chloride 100 ml @ 100 mls/hr Q1H IV Last administered on 10/17/17 17:25; Start 10/17/17 at 13:00; Stop 10/17/17 at 14:59; Status DC Hydromorphone HCl (Dilaudid) 1.5 mg PRN Q4HRS PRN IV PAIN; Start 10/17/17 at 18:00; Stop 10/17/17 at 18:00; Status DC Hydromorphone HCl (Dilaudid) 1.5 mg PRN Q3HRS PRN IV PAIN Last administered on 10/18/17 09:11; Start 10/17/17 at 18:00 Hydromorphone HCl (Dilaudid) 0.5 mg 1X ONCE IV Last administered on 18:08; Start 10/17/17 at 18:00; Stop 10/17/17 at 18:01; Status DC Active Scripts Active [place] 5-325 Tablet (Acetaminophen/Hydrocodone Bitart) 1 Each Tablet 1-2 Tab PO Q4-6HRS [Oxycodone Hcl/Acetaminophen] 1 TAB Tablet 1 Tab PO PRN Q4HRS PRN Reported Prozac (Fluoxetine Hcl) 20 Mg Capsule 60 Mg PO DAILY Latuda (Lurasidone Hcl) 40 Mg Tablet 1 Tab PO QHS Vyvanse (Lisdexamfetamine Dimesylate) 50 Mg Capsule 50 Mg PO DAILY Levothyroxine Sodium 75 Mcg Tablet 1 Tab PO DAILY Metformin Hcl 1,000 Mg Tablet 1 Tab PO BID Vitals/I & O Vital Sign - Last 24 Hours 10/17/17 10/17/17 10/17/17 10/17/17 11:00 11:11 11:44 15:00 Temp 98.9 97.9 98.9 97.9 Pulse 80 76 Resp 16 16 B/P (MAP) 120/68 (85) 118/72 (87) Pulse Ox 95 95 95 94 O2 Delivery Room Air Room Air Room Air 10/17/17 10/17/17 10/17/17 10/17/17 18:08 18:47 18:47 19:00 Temp 98.2 98.2 Pulse 83 Resp 16 B/P (MAP) 117/77 (90) Pulse Ox 95 95 95 92 O2 Delivery Room Air Room Air Room Air 10/17/17 10/17/17 10/17/17 10/18/17 20:00 20:57 23:00 00:00 Temp 98.2 98.2 Pulse 83 Resp 16 B/P (MAP) 127/76 (93) Pulse Ox 92 96 96 O2 Delivery Room Air Room Air Room Air Room Air 10/18/17 10/18/17 10/18/17 10/18/17 03:00 03:09 06:08 07:00 Temp 98.2 97.5 98.2 97.5 Pulse 84 83 Resp 16 22 B/P (MAP) 109/65 (80) 122/68 (86) Pulse Ox 92 96 96 94 O2 Delivery Room Air Room Air Room Air Room Air 10/18/17 10/18/17 09:11 09:42 Pulse Ox 94 94 O2 Delivery Room Air Room Air Intake and Output 10/17/17 10/17/17 10/18/17 15:00 23:00 07:00 Intake Total 500 ml 830 ml 300 ml Output Total 500 ml Balance 500 ml 330 ml 300 ml AMILCAR DESAI III DO Oct 18, 2017 10:41
[2017-10-18 11:00] VITALS: BP 109/65
--- NOTE | 2017-10-18 14:13 | PATHOLOGY ---
PATHOLOGY REPORT * * * * * * * * FINAL DIAGNOSIS: A. Duodenal biopsy, duodenal ulcer: - Segment of gastric mucosa showing superficial congestion and mild chronic inflammation. See comment. B. Gastric biopsy, antrum: - Mild chronic gastritis. COMMENT: Sections of the duodenal ulcer biopsy reveal a segment of gastric antral/body transition mucosa showing superficial congestion and mild chronic inflammation. There is no duodenal mucosa identified. Sections of the gastric antral biopsy reveal gastric antral/body transition mucosa showing congestion and mild chronic inflammation. An immunoperoxidase stain for Helicobacter is obtained. No Helicobacter organisms are identified. There is no evidence of malignancy. (JPM:rlm; 10/18/2017) Special stain performed: Immunoperoxidase stain for Helicobacter on B1. REPORT ELECTRONICALLY SIGNED BY: Faisal Talavera M.D. DATE/TIME: 10/18/2017 14:09 * * * * * * * * GROSS PATHOLOGY: A. Received in formalin labeled "Joanne Ashish, BX duodenal ulcer," is a segment of lopez soft tissue measuring 0.5 cm in maximum dimension. The specimen is submitted entirely in cassette A1. B. Received in formalin labeled "Joanne Ashish, BX, antrum," is a segment of lopez soft tissue measuring 0.6 cm in maximum dimension. The specimen is submitted entirely in cassette B1. (TSD; 10/17/2017) INITIAL CPT CODE(S): A; 08571 B; 17960, 64306 Professional services performed by [facility] [place] [address] Technical services performed by [facility] at [address] [place] [address] [address] [address]. SPECIMEN(S) RECEIVED: A.Biopsy duodenal ulcer B.Biopsy antrum CLINICAL HISTORY: Abdominal pain, nausea PATIENT: ALPHONSO TAYLORMatthew Yung /AGE: 6 1980 (Age: 37) PATIENT #: [id number] ALT CASE #: SPECIMEN COLLECTION DATE: 10/17/2017 SPECIMEN RECEIVED DATE: 10/17/2017 [facility] - [address] [place] [address] - PHONE: [phone] * * * END OF REPORT * * *
[2017-10-18 15:00] VITALS: BP 118/71
[2017-10-18] MEDS: METOCLOPRAMIDE HCL 10 MG/2 ML VIAL. IV PRN (17:54)
[2017-10-18 19:00] VITALS: BP 126/74
[2017-10-18] MEDS: LURASIDONE 40 MG TABLET. PO SCH (20:42)
[2017-10-18 22:59] VITALS: BP 115/74
[2017-10-19] MEDS: HYDROmorphone 2 MG/ML VIAL IV PRN ×7 (02:52→23:12)
[2017-10-19 03:00] VITALS: BP 113/70
[2017-10-19 05:39] LABS: BASO % 0 % (0-3); EOS % 3 % (0-3); HEMOGLOBIN 10.8 g/dL (12.0-15.5); LYMPH # 1.4 x10^3/uL (1.0-4.8); LYMPH % 22 % (24-48); MEAN CORPUSCULAR HEMOGLOBIN 28 pg (25-35); MEAN CORPUSCULAR HGB CONC 33 g/dL (31-37); MEAN CORPUSCULAR VOLUME 87 fL (79-100); MONO % 6 % (0-9); NEUT % 69 % (31-73); PLATELET COUNT 269 x10^3/uL (140-400); RED BLOOD COUNT 3.81 x10^6/uL (3.50-5.40); WHITE BLOOD COUNT 6.4 x10^3/uL (4.0-11.0)
[2017-10-19 05:57] LABS: ALBUMIN 3.3 g/dL (3.4-5.0); ALBUMIN/GLOBULIN RATIO 0.9 (1.0-1.7); CALCIUM 7.9 mg/dL (8.5-10.1); CREATININE 0.8 mg/dL (0.6-1.0); GFR 81.6; POTASSIUM 3.6 mmol/L (3.5-5.1); TOTAL BILIRUBIN 0.4 mg/dL (0.2-1.0); TOTAL PROTEIN 7.1 g/dL (6.4-8.2)
[2017-10-19 07:00] VITALS: BP 111/58
[2017-10-19] MEDS: LEVOTHYROXINE 75 MCG TABLET PO SCH (07:02)
[2017-10-19] MEDS: PANTOPRAZOLE SODIUM IV DRIP 80 MG in IV NORMAL SALINE 100ML 100 ML IV SCH (07:02)
[2017-10-19] MEDS: IV 1/2 NORMAL SALINE 1,000 ML IV SCH ×2 (07:03→16:28)
[2017-10-19] MEDS: FLUoxetine HCL 20 MG CAPSULE PO SCH (08:55)
[2017-10-19] MEDS: CIPROFLOXACIN 400MG PREMIX 200 ML IV SCH ×2 (08:55→20:02)
[2017-10-19] MEDS: LACTOBACILLUS RHAMNOSUS GG 1 CAPSULE. PO SCH ×2 (08:55→20:01)
--- NOTE | 2017-10-19 10:20 | PDOC ---
PROGRESS NOTES Chief Complaint Chief Complaint Abdominal pain 1. colitis 2. Duodenal ulcer 3. morbid obesity 4. diabetes 5. hypothyroid state under treatment History of Present Illness History of Present Illness Patient seen and examined. No acute events overnight. Pain controlled. Tried to advance diet yesterday but caused increased pain and nausea. Denies nausea/ vomiting, fevers/chills at this time. Vitals Vitals Vital Signs Date Time Temp Pulse Resp B/P (MAP) Pulse Ox O2 Delivery O2 Flow Rate FiO2 10/19/17 09:31 20 94 Room Air 10/19/17 07:00 85 111/58 (75) 10/19/17 03:00 98.0 98.0 Physical Exam General: Alert, Oriented X3, Cooperative, No acute distress Heart: Regular rate, No murmurs Lungs: Clear, Other Abdomen: Soft, Other (epigastric TTP) Extremities: No cyanosis, No edema Skin: No rashes, No significant lesion Labs LABS Laboratory Tests Test 10/18/17 11:15 10/18/17 16:30 10/18/17 20:43 10/19/17 05:00 Glucose (Fingerstick) 141 mg/dL (70-99) 120 mg/dL (70-99) 142 mg/dL (70-99) White Blood Count 6.4 x10^3/uL (4.0-11.0) Red Blood Count 3.81 x10^6/uL (3.50-5.40) Hemoglobin 10.8 g/dL (12.0-15.5) Hematocrit 33.0 % (36.0-47.0) Mean Corpuscular Volume 87 fL (79-100) Mean Corpuscular Hemoglobin 28 pg (25-35) Mean Corpuscular Hemoglobin Concent 33 g/dL (31-37) Red Cell Distribution Width 15.0 % (11.5-14.5) Platelet Count 269 x10^3/uL (140-400) Neutrophils (%) (Auto) 69 % (31-73) Lymphocytes (%) (Auto) 22 % (24-48) Monocytes (%) (Auto) 6 % (0-9) Eosinophils (%) (Auto) 3 % (0-3) Basophils (%) (Auto) 0 % (0-3) Neutrophils # (Auto) 4.4 x10^3uL (1.8-7.7) Lymphocytes # (Auto) 1.4 x10^3/uL (1.0-4.8) Monocytes # (Auto) 0.4 x10^3/uL (0.0-1.1) Eosinophils # (Auto) 0.2 x10^3/uL (0.0-0.7) Basophils # (Auto) 0.0 x10^3/uL (0.0-0.2) Sodium Level 139 mmol/L (136-145) Potassium Level 3.6 mmol/L (3.5-5.1) Chloride Level 104 mmol/L (98-107) Carbon Dioxide Level 24 mmol/L (21-32) Anion Gap 11 (6-14) Blood Urea Nitrogen 4 mg/dL (7-20) Creatinine 0.8 mg/dL (0.6-1.0) Estimated GFR (Cockcroft-Gault) 81.6 BUN/Creatinine Ratio 5 (6-20) Glucose Level 126 mg/dL (70-99) Calcium Level 7.9 mg/dL (8.5-10.1) Total Bilirubin 0.4 mg/dL (0.2-1.0) Aspartate Amino Transf (AST/SGOT) 21 U/L (15-37) Alanine Aminotransferase (ALT/SGPT) 34 U/L (14-59) Alkaline Phosphatase 57 U/L (46-116) Total Protein 7.1 g/dL (6.4-8.2) Albumin 3.3 g/dL (3.4-5.0) Albumin/Globulin Ratio 0.9 (1.0-1.7) Test 10/19/17 07:45 Glucose (Fingerstick) 127 mg/dL (70-99) Review of Systems Review of Systems Denies abdominal pain, nausea/vomiting, fevers/chills at this time. Assessment and Plan Assessmemt and Plan Problems Medical Problems: (1) Abdominal pain Status: Acute Abdominal pain 1. colitis 2. Duodenal ulcer 3. morbid obesity 4. diabetes 5. hypothyroid state under treatment 6. Gastroparesis PLAN: Recheck AM labs Reglan 10mg q6h IV protonix IV cipro/flagyl IV pain control IV fluids Dr. Quiles following, appreciate recommendations PT/OT Problems: Comment Review of Relevant I have reviewed the following items chivo (where applicable) has been applied. Labs Laboratory Tests Test 10/17/17 11:44 10/17/17 16:53 10/18/17 07:05 10/18/17 07:17 Glucose (Fingerstick) 146 mg/dL (70-99) 169 mg/dL (70-99) 118 mg/dL (70-99) White Blood Count 6.0 x10^3/uL (4.0-11.0) Red Blood Count 3.97 x10^6/uL (3.50-5.40) Hemoglobin 11.4 g/dL (12.0-15.5) Hematocrit 34.2 % (36.0-47.0) Mean Corpuscular Volume 86 fL (79-100) Mean Corpuscular Hemoglobin 29 pg (25-35) Mean Corpuscular Hemoglobin Concent 33 g/dL (31-37) Red Cell Distribution Width 14.7 % (11.5-14.5) Platelet Count 263 x10^3/uL (140-400) Neutrophils (%) (Auto) 65 % (31-73) Lymphocytes (%) (Auto) 27 % (24-48) Monocytes (%) (Auto) 6 % (0-9) Eosinophils (%) (Auto) 2 % (0-3) Basophils (%) (Auto) 0 % (0-3) Neutrophils # (Auto) 3.9 x10^3uL (1.8-7.7) Lymphocytes # (Auto) 1.6 x10^3/uL (1.0-4.8) Monocytes # (Auto) 0.4 x10^3/uL (0.0-1.1) Eosinophils # (Auto) 0.1 x10^3/uL (0.0-0.7) Basophils # (Auto) 0.0 x10^3/uL (0.0-0.2) Sodium Level 140 mmol/L (136-145) Potassium Level 3.6 mmol/L (3.5-5.1) Chloride Level 105 mmol/L (98-107) Carbon Dioxide Level 26 mmol/L (21-32) Anion Gap 9 (6-14) Blood Urea Nitrogen 3 mg/dL (7-20) Creatinine 0.7 mg/dL (0.6-1.0) Estimated GFR (Cockcroft-Gault) 95.2 Glucose Level 128 mg/dL (70-99) Calcium Level 8.4 mg/dL (8.5-10.1) Test 10/18/17 11:15 10/18/17 16:30 10/18/17 20:43 10/19/17 05:00 Glucose (Fingerstick) 141 mg/dL (70-99) 120 mg/dL (70-99) 142 mg/dL (70-99) White Blood Count 6.4 x10^3/uL (4.0-11.0) Red Blood Count 3.81 x10^6/uL (3.50-5.40) Hemoglobin 10.8 g/dL (12.0-15.5) Hematocrit 33.0 % (36.0-47.0) Mean Corpuscular Volume 87 fL (79-100) Mean Corpuscular Hemoglobin 28 pg (25-35) Mean Corpuscular Hemoglobin Concent 33 g/dL (31-37) Red Cell Distribution Width 15.0 % (11.5-14.5) Platelet Count 269 x10^3/uL (140-400) Neutrophils (%) (Auto) 69 % (31-73) Lymphocytes (%) (Auto) 22 % (24-48) Monocytes (%) (Auto) 6 % (0-9) Eosinophils (%) (Auto) 3 % (0-3) Basophils (%) (Auto) 0 % (0-3) Neutrophils # (Auto) 4.4 x10^3uL (1.8-7.7) Lymphocytes # (Auto) 1.4 x10^3/uL (1.0-4.8) Monocytes # (Auto) 0.4 x10^3/uL (0.0-1.1) Eosinophils # (Auto) 0.2 x10^3/uL (0.0-0.7) Basophils # (Auto) 0.0 x10^3/uL (0.0-0.2) Sodium Level 139 mmol/L (136-145) Potassium Level 3.6 mmol/L (3.5-5.1) Chloride Level 104 mmol/L (98-107) Carbon Dioxide Level 24 mmol/L (21-32) Anion Gap 11 (6-14) Blood Urea Nitrogen 4 mg/dL (7-20) Creatinine 0.8 mg/dL (0.6-1.0) Estimated GFR (Cockcroft-Gault) 81.6 BUN/Creatinine Ratio 5 (6-20) Glucose Level 126 mg/dL (70-99) Calcium Level 7.9 mg/dL (8.5-10.1) Total Bilirubin 0.4 mg/dL (0.2-1.0) Aspartate Amino Transf (AST/SGOT) 21 U/L (15-37) Alanine Aminotransferase (ALT/SGPT) 34 U/L (14-59) Alkaline Phosphatase 57 U/L (46-116) Total Protein 7.1 g/dL (6.4-8.2) Albumin 3.3 g/dL (3.4-5.0) Albumin/Globulin Ratio 0.9 (1.0-1.7) Test 10/19/17 07:45 Glucose (Fingerstick) 127 mg/dL (70-99) Laboratory Tests Test 10/18/17 11:15 10/18/17 16:30 10/18/17 20:43 10/19/17 05:00 Glucose (Fingerstick) 141 mg/dL (70-99) 120 mg/dL (70-99) 142 mg/dL (70-99) White Blood Count 6.4 x10^3/uL (4.0-11.0) Red Blood Count 3.81 x10^6/uL (3.50-5.40) Hemoglobin 10.8 g/dL (12.0-15.5) Hematocrit 33.0 % (36.0-47.0) Mean Corpuscular Volume 87 fL (79-100) Mean Corpuscular Hemoglobin 28 pg (25-35) Mean Corpuscular Hemoglobin Concent 33 g/dL (31-37) Red Cell Distribution Width 15.0 % (11.5-14.5) Platelet Count 269 x10^3/uL (140-400) Neutrophils (%) (Auto) 69 % (31-73) Lymphocytes (%) (Auto) 22 % (24-48) Monocytes (%) (Auto) 6 % (0-9) Eosinophils (%) (Auto) 3 % (0-3) Basophils (%) (Auto) 0 % (0-3) Neutrophils # (Auto) 4.4 x10^3uL (1.8-7.7) Lymphocytes # (Auto) 1.4 x10^3/uL (1.0-4.8) Monocytes # (Auto) 0.4 x10^3/uL (0.0-1.1) Eosinophils # (Auto) 0.2 x10^3/uL (0.0-0.7) Basophils # (Auto) 0.0 x10^3/uL (0.0-0.2) Sodium Level 139 mmol/L (136-145) Potassium Level 3.6 mmol/L (3.5-5.1) Chloride Level 104 mmol/L (98-107) Carbon Dioxide Level 24 mmol/L (21-32) Anion Gap 11 (6-14) Blood Urea Nitrogen 4 mg/dL (7-20) Creatinine 0.8 mg/dL (0.6-1.0) Estimated GFR (Cockcroft-Gault) 81.6 BUN/Creatinine Ratio 5 (6-20) Glucose Level 126 mg/dL (70-99) Calcium Level 7.9 mg/dL (8.5-10.1) Total Bilirubin 0.4 mg/dL (0.2-1.0) Aspartate Amino Transf (AST/SGOT) 21 U/L (15-37) Alanine Aminotransferase (ALT/SGPT) 34 U/L (14-59) Alkaline Phosphatase 57 U/L (46-116) Total Protein 7.1 g/dL (6.4-8.2) Albumin 3.3 g/dL (3.4-5.0) Albumin/Globulin Ratio 0.9 (1.0-1.7) Test 10/19/17 07:45 Glucose (Fingerstick) 127 mg/dL (70-99) Microbiology 10/15/17 Blood Culture - Preliminary, Resulted NO GROWTH AFTER 3 DAYS 10/15/17 Urine Culture - Final, Complete 10/15/17 Urine Culture Result 1 (DAVID) - Final, Complete Medications Current Medications Fentanyl Citrate (Fentanyl 2ml Vial) 50 mcg PRN Q15MIN PRN IV PAIN GREATER THAN 3/10 Last administered on 10/15/17t 19:32; Start 10/15/17 at 18:30; Stop 10/16/17 at 18:29; Status DC Sodium Chloride 1,000 ml @ 1,000 mls/hr Q1H IV Last administered on 18:37; Start 10/15/17 at 18:17; Stop 10/15/17 at 19:16; Status DC Promethazine HCl 25 mg/Sodium Chloride 51 ml @ 101 mls/hr 1X ONCE IV Last administered on 10/15/17 18:37; Start 10/15/17 at 18:30; Stop 10/15/17 at 19 :00; Status DC Hydromorphone HCl (Dilaudid) 1 mg PRN Q15MIN PRN IV/SQ PAIN GREATER THAN 3/10 Last administered on 10/15/17 21:15; Start 10/15/17 at 20:00; Stop 10/16/17 at 19:59; Status DC Ciprofloxacin/ Dextrose 200 ml @ 200 mls/hr Q12HR IV Last administered on 08:55; Start 10/16/17 at 09:00 Metronidazole 100 ml @ 100 mls/hr Q8HRS IV Last administered on 10/19/17 05: 58; Start 10/16/17 at 06:00 Metronidazole 100 ml @ 100 mls/hr 1X ONCE IV Last administered on 10/15/17 22:30; Start 10/15/17 at 20:15; Stop 10/15/17 at 21:14; Status DC Ciprofloxacin/ Dextrose 200 ml @ 200 mls/hr 1X ONCE IV Last administered on 10/15/17 20:27; Start 10/15/17 at 20:15; Stop 10/15/17 at 21:14; Status DC Hydromorphone HCl (Dilaudid) 1 mg PRN Q6HRS PRN IV pain; Start 10/15/17 at 20: 45; Stop 10/15/17 at 22:15; Status DC Hydromorphone HCl (Dilaudid) 1 mg PRN Q3HRS PRN IV pain Last administered on 17:25; Start 10/15/17 at 22:15; Stop 10/17/17 at 17:51; Status DC Fentanyl Citrate (Fentanyl 2ml Vial) 50 mcg PRN Q2HR PRN IV PAIN; Start at 22:15; Stop 10/17/17 at 17:51; Status DC Ondansetron HCl (Zofran) 4 mg PRN Q6HRS PRN IV NAUSEA/VOMITING Last administered on 10/18/17 08:41; Start 10/15/17 at 22:15 Sodium Chloride 1,000 ml @ 100 mls/hr Q10H IV Last administered on 10/19/17 07:03; Start 10/15/17 at 22:15 Fluoxetine HCl (PROzac) 60 mg DAILY PO Last administered on 10/19/17 08:55; Start 10/16/17 at 12:00 Acetaminophen/ Hydrocodone Bitart (Lortab 5/325) 1 tab Q6HRS PRN PO MODERATE PAIN; Start 10/16/17 at 11:30; Stop 10/20/17 at 11:29 Levothyroxine Sodium (Synthroid) 75 mcg DAILY07 PO Last administered on 07:02; Start 10/16/17 at 12:00 Lurasidone HCl (Latuda) 40 mg QHS PO ; Start 10/16/17 at 21:00 Acetaminophen/ Hydrocodone Bitart (Lortab 5/325) 2 tab Q6HRS PRN PO SEVERE PAIN ; Start 10/16/17 at 11:45; Stop 10/20/17 at 11:29 Sodium Cl/Sod Bicarb/Potass Cl/ PEG (Golytely) 4,000 ml 1X ONCE PO Last administered on 10/16/17 14:01; Start 10/16/17 at 14:00; Stop 10/16/17 at 16 :03; Status DC Bisacodyl (Dulcolax Tab) 10 mg 1X ONCE PO Last administered on 10/16/17 12: 39; Start 10/16/17 at 13:00; Stop 10/16/17 at 13:01; Status DC Lactobacillus Rhamnosus (Culturelle) 1 cap BID PO Last administered on 08:55; Start 10/16/17 at 21:00 Ondansetron HCl (Zofran) 4 mg PRN Q6HRS PRN IV NAUSEA/VOMITING; Start at 07:00; Stop 10/18/17 at 06:59; Status DC Fentanyl Citrate (Fentanyl 2ml Vial) 25 mcg PRN Q5MIN PRN IV MILD PAIN; Start 10/17/17 at 07:00; Stop 10/17/17 at 17:51; Status DC Fentanyl Citrate (Fentanyl 2ml Vial) 50 mcg PRN Q5MIN PRN IV MODERATE TO SEVERE PAIN; Start 10/17/17 at 07:00; Stop 10/17/17 at 17:51; Status DC Morphine Sulfate 1 mg PRN Q10MIN PRN IV SEVERE PAIN; Start 10/17/17 at 07:00; Stop 10/18/17 at 06:59; Status UNV Ringer's Solution 1,000 ml @ 30 mls/hr Q24H IV Last administered on 07:22; Start 10/17/17 at 07:00; Stop 10/17/17 at 18:59; Status DC Lidocaine HCl (Xylocaine-Mpf 1% Vial) 2 ml PRN 1X PRN ID IV START; Start 10/17 at 07:00; Stop 10/18/17 at 06:59; Status DC Hydromorphone HCl (Dilaudid) 0.5 mg PRN Q10MIN PRN IV SEV PAIN, Second choice; Start 10/17/17 at 07:00; Stop 10/17/17 at 17:51; Status DC Prochlorperazine Edisylate (Compazine) 5 mg PACU PRN PRN IV NAUSEA, MRX1; Start 10/17/17 at 07:00; Stop 10/18/17 at 06:59; Status DC Metoclopramide HCl (Reglan Vial) 10 mg PRN Q6HRS PRN IV NAUSEA/VOMITING Last administered on 10/18/17 17:54; Start 10/16/17 at 16:00 Iohexol (Omnipaque 300 Mg/ml) 75 ml 1X ONCE IV Last administered on 16:26; Start 10/16/17 at 16:15; Stop 10/16/17 at 16:16; Status DC Info (Do NOT chart on this entry -- for MONITORING) 1 each PRN DAILY PRN MC SEE COMMENTS; Start 10/16/17 at 16:15; Stop 10/18/17 at 16:14; Status DC Propofol 20 ml @ As Directed STK-MED ONCE IV ; Start 10/17/17 at 07:54; Stop 10/17/17 at 07:55; Status DC Lidocaine HCl (Lidocaine Pf 2% Vial) 5 ml STK-MED ONCE .ROUTE ; Start 10/17/17 at 07:54; Stop 10/17/17 at 07:55; Status DC Propofol 20 ml @ As Directed STK-MED ONCE IV ; Start 10/17/17 at 07:55; Stop 10/17/17 at 07:56; Status DC Pantoprazole Sodium (Protonix) 40 mg DAILYAC PO Last administered on 09:23; Start 10/17/17 at 09:30; Stop 10/17/17 at 11:03; Status DC Pantoprazole Sodium 80 mg/ Sodium Chloride 100 ml @ 10 mls/hr Q10H IV Last administered on 10/19/17 07:02; Start 10/17/17 at 11:00 Ondansetron HCl (Zofran) 4 mg PRN Q6HRS PRN IV NAUSEA/VOMITING 1ST CHOICE; Start 10/17/17 at 11:15; Stop 10/17/17 at 16:01; Status DC Hydromorphone HCl (Dilaudid) 1 mg 1X ONCE IV Last administered on 10/17/17 11:11; Start 10/17/17 at 11:15; Stop 10/17/17 at 17:51; Status DC Potassium Chloride 100 ml @ 100 mls/hr Q1H IV Last administered on 10/17/17 17:25; Start 10/17/17 at 13:00; Stop 10/17/17 at 14:59; Status DC Hydromorphone HCl (Dilaudid) 1.5 mg PRN Q4HRS PRN IV PAIN; Start 10/17/17 at 18:00; Stop 10/17/17 at 18:00; Status DC Hydromorphone HCl (Dilaudid) 1.5 mg PRN Q3HRS PRN IV PAIN Last administered on 10/19/17 09:01; Start 10/17/17 at 18:00 Hydromorphone HCl (Dilaudid) 0.5 mg 1X ONCE IV Last administered on 18:08; Start 10/17/17 at 18:00; Stop 10/17/17 at 18:01; Status DC Active Scripts Active [place] 5-325 Tablet (Acetaminophen/Hydrocodone Bitart) 1 Each Tablet 1-2 Tab PO Q4-6HRS [Oxycodone Hcl/Acetaminophen] 1 TAB Tablet 1 Tab PO PRN Q4HRS PRN Reported Prozac (Fluoxetine Hcl) 20 Mg Capsule 60 Mg PO DAILY Latuda (Lurasidone Hcl) 40 Mg Tablet 1 Tab PO QHS Vyvanse (Lisdexamfetamine Dimesylate) 50 Mg Capsule 50 Mg PO DAILY Levothyroxine Sodium 75 Mcg Tablet 1 Tab PO DAILY Metformin Hcl 1,000 Mg Tablet 1 Tab PO BID Vitals/I & O Vital Sign - Last 24 Hours 10/18/17 10/18/17 10/18/17 10/18/17 11:00 12:48 15:00 15:55 Temp 95.7 97.9 95.7 97.9 Pulse 85 83 Resp 20 20 B/P (MAP) 109/65 (80) 118/71 (87) Pulse Ox 96 96 95 95 O2 Delivery Room Air Room Air Room Air Room Air 10/18/17 10/18/17 10/18/17 10/18/17 19:00 19:30 19:44 22:44 Temp 98.3 98.3 Pulse 88 Resp 18 20 20 B/P (MAP) 126/74 (91) Pulse Ox 96 O2 Delivery Room Air Room Air Room Air Room Air 10/18/17 10/19/17 10/19/17 10/19/17 22:59 02:52 03:00 05:58 Temp 98.2 98.0 98.2 98.0 Pulse 88 86 Resp 17 20 18 20 B/P (MAP) 115/74 (88) 113/70 (84) Pulse Ox 97 96 O2 Delivery Room Air Room Air Room Air Room Air 10/19/17 10/19/17 10/19/17 10/19/17 07:00 08:00 09:01 09:31 Pulse 85 Resp 18 20 20 B/P (MAP) 111/58 (75) Pulse Ox 94 94 94 O2 Delivery Room Air Room Air Room Air Room Air Intake and Output 10/18/17 10/18/17 10/19/17 15:00 23:00 07:00 Intake Total 450 ml 1133 ml Balance 450 ml 1133 ml AMILCAR DESAI III DO Oct 19, 2017 10:19
[2017-10-19 11:00] VITALS: BP 118/70
--- NOTE | 2017-10-19 11:09 | PDOC ---
SURGICAL PROGRESS NOTE Subjective still has pain with po intake Vital Signs Vital Signs Date Time Temp Pulse Resp B/P (MAP) Pulse Ox O2 Delivery O2 Flow Rate FiO2 10/19/17 09:31 20 94 Room Air 10/19/17 07:00 85 111/58 (75) 10/19/17 03:00 98.0 98.0 I&O Intake and Output 10/19/17 07:00 Intake Total 1583 ml Balance 1583 ml Intake Oral 330 ml IV Total 1253 ml # Voids 1 PATIENT HAS A CHAVEZ: No General: Alert, Oriented X3, No acute distress Abdomen: Soft Labs Laboratory Tests Test 10/17/17 11:44 10/17/17 16:53 10/18/17 07:05 10/18/17 07:17 Glucose (Fingerstick) 146 mg/dL (70-99) 169 mg/dL (70-99) 118 mg/dL (70-99) White Blood Count 6.0 x10^3/uL (4.0-11.0) Red Blood Count 3.97 x10^6/uL (3.50-5.40) Hemoglobin 11.4 g/dL (12.0-15.5) Hematocrit 34.2 % (36.0-47.0) Mean Corpuscular Volume 86 fL (79-100) Mean Corpuscular Hemoglobin 29 pg (25-35) Mean Corpuscular Hemoglobin Concent 33 g/dL (31-37) Red Cell Distribution Width 14.7 % (11.5-14.5) Platelet Count 263 x10^3/uL (140-400) Neutrophils (%) (Auto) 65 % (31-73) Lymphocytes (%) (Auto) 27 % (24-48) Monocytes (%) (Auto) 6 % (0-9) Eosinophils (%) (Auto) 2 % (0-3) Basophils (%) (Auto) 0 % (0-3) Neutrophils # (Auto) 3.9 x10^3uL (1.8-7.7) Lymphocytes # (Auto) 1.6 x10^3/uL (1.0-4.8) Monocytes # (Auto) 0.4 x10^3/uL (0.0-1.1) Eosinophils # (Auto) 0.1 x10^3/uL (0.0-0.7) Basophils # (Auto) 0.0 x10^3/uL (0.0-0.2) Sodium Level 140 mmol/L (136-145) Potassium Level 3.6 mmol/L (3.5-5.1) Chloride Level 105 mmol/L (98-107) Carbon Dioxide Level 26 mmol/L (21-32) Anion Gap 9 (6-14) Blood Urea Nitrogen 3 mg/dL (7-20) Creatinine 0.7 mg/dL (0.6-1.0) Estimated GFR (Cockcroft-Gault) 95.2 Glucose Level 128 mg/dL (70-99) Calcium Level 8.4 mg/dL (8.5-10.1) Test 10/18/17 11:15 10/18/17 16:30 10/18/17 20:43 10/19/17 05:00 Glucose (Fingerstick) 141 mg/dL (70-99) 120 mg/dL (70-99) 142 mg/dL (70-99) White Blood Count 6.4 x10^3/uL (4.0-11.0) Red Blood Count 3.81 x10^6/uL (3.50-5.40) Hemoglobin 10.8 g/dL (12.0-15.5) Hematocrit 33.0 % (36.0-47.0) Mean Corpuscular Volume 87 fL (79-100) Mean Corpuscular Hemoglobin 28 pg (25-35) Mean Corpuscular Hemoglobin Concent 33 g/dL (31-37) Red Cell Distribution Width 15.0 % (11.5-14.5) Platelet Count 269 x10^3/uL (140-400) Neutrophils (%) (Auto) 69 % (31-73) Lymphocytes (%) (Auto) 22 % (24-48) Monocytes (%) (Auto) 6 % (0-9) Eosinophils (%) (Auto) 3 % (0-3) Basophils (%) (Auto) 0 % (0-3) Neutrophils # (Auto) 4.4 x10^3uL (1.8-7.7) Lymphocytes # (Auto) 1.4 x10^3/uL (1.0-4.8) Monocytes # (Auto) 0.4 x10^3/uL (0.0-1.1) Eosinophils # (Auto) 0.2 x10^3/uL (0.0-0.7) Basophils # (Auto) 0.0 x10^3/uL (0.0-0.2) Sodium Level 139 mmol/L (136-145) Potassium Level 3.6 mmol/L (3.5-5.1) Chloride Level 104 mmol/L (98-107) Carbon Dioxide Level 24 mmol/L (21-32) Anion Gap 11 (6-14) Blood Urea Nitrogen 4 mg/dL (7-20) Creatinine 0.8 mg/dL (0.6-1.0) Estimated GFR (Cockcroft-Gault) 81.6 BUN/Creatinine Ratio 5 (6-20) Glucose Level 126 mg/dL (70-99) Calcium Level 7.9 mg/dL (8.5-10.1) Total Bilirubin 0.4 mg/dL (0.2-1.0) Aspartate Amino Transf (AST/SGOT) 21 U/L (15-37) Alanine Aminotransferase (ALT/SGPT) 34 U/L (14-59) Alkaline Phosphatase 57 U/L (46-116) Total Protein 7.1 g/dL (6.4-8.2) Albumin 3.3 g/dL (3.4-5.0) Albumin/Globulin Ratio 0.9 (1.0-1.7) Test 10/19/17 07:45 Glucose (Fingerstick) 127 mg/dL (70-99) Laboratory Tests Test 10/18/17 11:15 10/18/17 16:30 10/18/17 20:43 10/19/17 05:00 Glucose (Fingerstick) 141 mg/dL (70-99) 120 mg/dL (70-99) 142 mg/dL (70-99) White Blood Count 6.4 x10^3/uL (4.0-11.0) Red Blood Count 3.81 x10^6/uL (3.50-5.40) Hemoglobin 10.8 g/dL (12.0-15.5) Hematocrit 33.0 % (36.0-47.0) Mean Corpuscular Volume 87 fL (79-100) Mean Corpuscular Hemoglobin 28 pg (25-35) Mean Corpuscular Hemoglobin Concent 33 g/dL (31-37) Red Cell Distribution Width 15.0 % (11.5-14.5) Platelet Count 269 x10^3/uL (140-400) Neutrophils (%) (Auto) 69 % (31-73) Lymphocytes (%) (Auto) 22 % (24-48) Monocytes (%) (Auto) 6 % (0-9) Eosinophils (%) (Auto) 3 % (0-3) Basophils (%) (Auto) 0 % (0-3) Neutrophils # (Auto) 4.4 x10^3uL (1.8-7.7) Lymphocytes # (Auto) 1.4 x10^3/uL (1.0-4.8) Monocytes # (Auto) 0.4 x10^3/uL (0.0-1.1) Eosinophils # (Auto) 0.2 x10^3/uL (0.0-0.7) Basophils # (Auto) 0.0 x10^3/uL (0.0-0.2) Sodium Level 139 mmol/L (136-145) Potassium Level 3.6 mmol/L (3.5-5.1) Chloride Level 104 mmol/L (98-107) Carbon Dioxide Level 24 mmol/L (21-32) Anion Gap 11 (6-14) Blood Urea Nitrogen 4 mg/dL (7-20) Creatinine 0.8 mg/dL (0.6-1.0) Estimated GFR (Cockcroft-Gault) 81.6 BUN/Creatinine Ratio 5 (6-20) Glucose Level 126 mg/dL (70-99) Calcium Level 7.9 mg/dL (8.5-10.1) Total Bilirubin 0.4 mg/dL (0.2-1.0) Aspartate Amino Transf (AST/SGOT) 21 U/L (15-37) Alanine Aminotransferase (ALT/SGPT) 34 U/L (14-59) Alkaline Phosphatase 57 U/L (46-116) Total Protein 7.1 g/dL (6.4-8.2) Albumin 3.3 g/dL (3.4-5.0) Albumin/Globulin Ratio 0.9 (1.0-1.7) Test 10/19/17 07:45 Glucose (Fingerstick) 127 mg/dL (70-99) Problem List Problems Medical Problems: (1) Abdominal pain Status: Acute Assessment/Plan DU continue supportive care no new surgical recs Problems: MARINA FUCHS MD Oct 19, 2017 11:09
[2017-10-19] MEDS: METOCLOPRAMIDE 10 MG TABLET. PO SCH ×3 (11:45→20:01)
[2017-10-19 15:00] VITALS: BP 115/70
[2017-10-19] MEDS: PANTOPRAZOLE IV PUSH 40 MG VIAL. IVP SCH (16:28)
[2017-10-19] MEDS ORDERED: DEXTROSE 50% 25 GM / 50ML DISP.SYRIN. IV PRN (17:30)
[2017-10-19] MEDS: INSULIN ASPART 300 UNITS/3 ML INSULN.PEN SQ SCH (18:26)
[2017-10-19 19:00] VITALS: BP 113/68
[2017-10-19] MEDS: LURASIDONE 40 MG TABLET. PO SCH (20:01)
[2017-10-19] MEDS: HYDROcodone/APAP 5/325MG 1 TAB TABLET PO PRN (21:20)
[2017-10-19 23:00] VITALS: BP 112/61
[2017-10-20] MEDS: IV 1/2 NORMAL SALINE 1,000 ML IV SCH ×2 (02:08→12:15)
[2017-10-20] MEDS: HYDROmorphone 2 MG/ML VIAL IV PRN ×3 (02:34→10:31)
[2017-10-20 03:00] VITALS: BP 106/52
[2017-10-20] MEDS: METOCLOPRAMIDE 10 MG TABLET. PO SCH ×2 (05:05→11:41)
[2017-10-20] MEDS: LEVOTHYROXINE 75 MCG TABLET PO SCH (05:05)
[2017-10-20] MEDS: PANTOPRAZOLE IV PUSH 40 MG VIAL. IVP SCH (05:06)
[2017-10-20] MEDS: HYDROcodone/APAP 5/325MG 1 TAB TABLET PO PRN (05:14)
[2017-10-20 06:39] LABS: ALBUMIN 3.4 g/dL (3.4-5.0); ALBUMIN/GLOBULIN RATIO 0.8 (1.0-1.7); CALCIUM 8.3 mg/dL (8.5-10.1); CREATININE 0.7 mg/dL (0.6-1.0); GFR 95.2; POTASSIUM 3.7 mmol/L (3.5-5.1); TOTAL BILIRUBIN 0.4 mg/dL (0.2-1.0); TOTAL PROTEIN 7.5 g/dL (6.4-8.2)
[2017-10-20 07:00] VITALS: BP 113/65
[2017-10-20 07:08] LABS: BASO % 0 % (0-3); EOS % 2 % (0-3); HEMATOCRIT 35.5 % (36.0-47.0); HEMOGLOBIN 11.6 g/dL (12.0-15.5); LYMPH # 1.4 x10^3/uL (1.0-4.8); LYMPH % 23 % (24-48); MEAN CORPUSCULAR HEMOGLOBIN 28 pg (25-35); MEAN CORPUSCULAR HGB CONC 33 g/dL (31-37); MEAN CORPUSCULAR VOLUME 86 fL (79-100); MONO % 7 % (0-9); NEUT % 68 % (31-73); PLATELET COUNT 289 x10^3/uL (140-400); RED BLOOD COUNT 4.12 x10^6/uL (3.50-5.40); RED CELL DISTRIBUTION WIDTH 15.2 % (11.5-14.5); WHITE BLOOD COUNT 6.2 x10^3/uL (4.0-11.0)
[2017-10-20] MEDS: INSULIN ASPART 300 UNITS/3 ML INSULN.PEN SQ SCH ×2 (07:48→11:51)
[2017-10-20] MEDS: CIPROFLOXACIN 400MG PREMIX 200 ML IV SCH (08:04)
[2017-10-20] MEDS: LACTOBACILLUS RHAMNOSUS GG 1 CAPSULE. PO SCH (08:08)
[2017-10-20] MEDS: FLUoxetine HCL 20 MG CAPSULE PO SCH (08:09)
[2017-10-20] MEDS ORDERED: METR500T PO (12:14)
[2017-10-20] MEDS ORDERED: METO10TA81 PO (12:15)
[2017-10-20] MEDS ORDERED: PANT40TA3 PO (12:15)
[2017-10-20] MEDS ORDERED: CIPR500T94 PO (12:16)
--- NOTE | 2017-10-20 13:00 | PDOC ---
PROGRESS NOTES Chief Complaint Chief Complaint Abdominal pain 1. colitis 2. Duodenal ulcer 3. morbid obesity 4. diabetes 5. hypothyroid state under treatment History of Present Illness History of Present Illness Patient seen and examined. No acute events overnight. Pain controlled. Tolerating diet. Denies nausea/vomiting, fevers/chills, abdominal pain at this time. States she feels well enough to get discharged. Vitals Vitals Vital Signs Date Time Temp Pulse Resp B/P (MAP) Pulse Ox O2 Delivery O2 Flow Rate FiO2 10/20/17 11:01 20 95 Room Air 10/20/17 07:00 99.5 84 113/65 (81) 99.5 Physical Exam General: Alert, Oriented X3, No acute distress Heart: Regular rate, No murmurs Lungs: Clear, Other Abdomen: Normal bowel sounds, Soft Extremities: No clubbing, No cyanosis, No edema Skin: No rashes, No significant lesion Labs LABS Laboratory Tests Test 10/19/17 16:44 10/19/17 21:10 10/20/17 04:15 10/20/17 07:25 Glucose (Fingerstick) 182 mg/dL (70-99) 144 mg/dL (70-99) 121 mg/dL (70-99) White Blood Count 6.2 x10^3/uL (4.0-11.0) Red Blood Count 4.12 x10^6/uL (3.50-5.40) Hemoglobin 11.6 g/dL (12.0-15.5) Hematocrit 35.5 % (36.0-47.0) Mean Corpuscular Volume 86 fL (79-100) Mean Corpuscular Hemoglobin 28 pg (25-35) Mean Corpuscular Hemoglobin Concent 33 g/dL (31-37) Red Cell Distribution Width 15.2 % (11.5-14.5) Platelet Count 289 x10^3/uL (140-400) Neutrophils (%) (Auto) 68 % (31-73) Lymphocytes (%) (Auto) 23 % (24-48) Monocytes (%) (Auto) 7 % (0-9) Eosinophils (%) (Auto) 2 % (0-3) Basophils (%) (Auto) 0 % (0-3) Neutrophils # (Auto) 4.2 x10^3uL (1.8-7.7) Lymphocytes # (Auto) 1.4 x10^3/uL (1.0-4.8) Monocytes # (Auto) 0.4 x10^3/uL (0.0-1.1) Eosinophils # (Auto) 0.1 x10^3/uL (0.0-0.7) Basophils # (Auto) 0.0 x10^3/uL (0.0-0.2) Sodium Level 140 mmol/L (136-145) Potassium Level 3.7 mmol/L (3.5-5.1) Chloride Level 104 mmol/L (98-107) Carbon Dioxide Level 25 mmol/L (21-32) Anion Gap 11 (6-14) Blood Urea Nitrogen 3 mg/dL (7-20) Creatinine 0.7 mg/dL (0.6-1.0) Estimated GFR (Cockcroft-Gault) 95.2 BUN/Creatinine Ratio 4 (6-20) Glucose Level 133 mg/dL (70-99) Calcium Level 8.3 mg/dL (8.5-10.1) Total Bilirubin 0.4 mg/dL (0.2-1.0) Aspartate Amino Transf (AST/SGOT) 21 U/L (15-37) Alanine Aminotransferase (ALT/SGPT) 32 U/L (14-59) Alkaline Phosphatase 53 U/L (46-116) Total Protein 7.5 g/dL (6.4-8.2) Albumin 3.4 g/dL (3.4-5.0) Albumin/Globulin Ratio 0.8 (1.0-1.7) Test 10/20/17 11:47 Glucose (Fingerstick) 156 mg/dL (70-99) Review of Systems Review of Systems Denies abdominal pain, nausea/vomiting, fevers/chills. Assessment and Plan Assessmemt and Plan Problems Medical Problems: (1) Abdominal pain Status: Acute Abdominal pain 1. colitis 2. Duodenal ulcer 3. morbid obesity 4. diabetes 5. hypothyroid state under treatment PLAN: Reglan 10mg q6h IV protonix IV cipro/flagyl IV pain control PT/OT Probable d/c today Follow up with Dr. Quiles outpatient Problems: Comment Review of Relevant I have reviewed the following items chivo (where applicable) has been applied. Labs Laboratory Tests Test 10/18/17 16:30 10/18/17 20:43 10/19/17 05:00 10/19/17 07:45 Glucose (Fingerstick) 120 mg/dL (70-99) 142 mg/dL (70-99) 127 mg/dL (70-99) White Blood Count 6.4 x10^3/uL (4.0-11.0) Red Blood Count 3.81 x10^6/uL (3.50-5.40) Hemoglobin 10.8 g/dL (12.0-15.5) Hematocrit 33.0 % (36.0-47.0) Mean Corpuscular Volume 87 fL (79-100) Mean Corpuscular Hemoglobin 28 pg (25-35) Mean Corpuscular Hemoglobin Concent 33 g/dL (31-37) Red Cell Distribution Width 15.0 % (11.5-14.5) Platelet Count 269 x10^3/uL (140-400) Neutrophils (%) (Auto) 69 % (31-73) Lymphocytes (%) (Auto) 22 % (24-48) Monocytes (%) (Auto) 6 % (0-9) Eosinophils (%) (Auto) 3 % (0-3) Basophils (%) (Auto) 0 % (0-3) Neutrophils # (Auto) 4.4 x10^3uL (1.8-7.7) Lymphocytes # (Auto) 1.4 x10^3/uL (1.0-4.8) Monocytes # (Auto) 0.4 x10^3/uL (0.0-1.1) Eosinophils # (Auto) 0.2 x10^3/uL (0.0-0.7) Basophils # (Auto) 0.0 x10^3/uL (0.0-0.2) Sodium Level 139 mmol/L (136-145) Potassium Level 3.6 mmol/L (3.5-5.1) Chloride Level 104 mmol/L (98-107) Carbon Dioxide Level 24 mmol/L (21-32) Anion Gap 11 (6-14) Blood Urea Nitrogen 4 mg/dL (7-20) Creatinine 0.8 mg/dL (0.6-1.0) Estimated GFR (Cockcroft-Gault) 81.6 BUN/Creatinine Ratio 5 (6-20) Glucose Level 126 mg/dL (70-99) Calcium Level 7.9 mg/dL (8.5-10.1) Total Bilirubin 0.4 mg/dL (0.2-1.0) Aspartate Amino Transf (AST/SGOT) 21 U/L (15-37) Alanine Aminotransferase (ALT/SGPT) 34 U/L (14-59) Alkaline Phosphatase 57 U/L (46-116) Total Protein 7.1 g/dL (6.4-8.2) Albumin 3.3 g/dL (3.4-5.0) Albumin/Globulin Ratio 0.9 (1.0-1.7) Test 10/19/17 10:58 10/19/17 16:44 10/19/17 21:10 10/20/17 04:15 Glucose (Fingerstick) 166 mg/dL (70-99) 182 mg/dL (70-99) 144 mg/dL (70-99) White Blood Count 6.2 x10^3/uL (4.0-11.0) Red Blood Count 4.12 x10^6/uL (3.50-5.40) Hemoglobin 11.6 g/dL (12.0-15.5) Hematocrit 35.5 % (36.0-47.0) Mean Corpuscular Volume 86 fL (79-100) Mean Corpuscular Hemoglobin 28 pg (25-35) Mean Corpuscular Hemoglobin Concent 33 g/dL (31-37) Red Cell Distribution Width 15.2 % (11.5-14.5) Platelet Count 289 x10^3/uL (140-400) Neutrophils (%) (Auto) 68 % (31-73) Lymphocytes (%) (Auto) 23 % (24-48) Monocytes (%) (Auto) 7 % (0-9) Eosinophils (%) (Auto) 2 % (0-3) Basophils (%) (Auto) 0 % (0-3) Neutrophils # (Auto) 4.2 x10^3uL (1.8-7.7) Lymphocytes # (Auto) 1.4 x10^3/uL (1.0-4.8) Monocytes # (Auto) 0.4 x10^3/uL (0.0-1.1) Eosinophils # (Auto) 0.1 x10^3/uL (0.0-0.7) Basophils # (Auto) 0.0 x10^3/uL (0.0-0.2) Sodium Level 140 mmol/L (136-145) Potassium Level 3.7 mmol/L (3.5-5.1) Chloride Level 104 mmol/L (98-107) Carbon Dioxide Level 25 mmol/L (21-32) Anion Gap 11 (6-14) Blood Urea Nitrogen 3 mg/dL (7-20) Creatinine 0.7 mg/dL (0.6-1.0) Estimated GFR (Cockcroft-Gault) 95.2 BUN/Creatinine Ratio 4 (6-20) Glucose Level 133 mg/dL (70-99) Calcium Level 8.3 mg/dL (8.5-10.1) Total Bilirubin 0.4 mg/dL (0.2-1.0) Aspartate Amino Transf (AST/SGOT) 21 U/L (15-37) Alanine Aminotransferase (ALT/SGPT) 32 U/L (14-59) Alkaline Phosphatase 53 U/L (46-116) Total Protein 7.5 g/dL (6.4-8.2) Albumin 3.4 g/dL (3.4-5.0) Albumin/Globulin Ratio 0.8 (1.0-1.7) Test 10/20/17 07:25 10/20/17 11:47 Glucose (Fingerstick) 121 mg/dL (70-99) 156 mg/dL (70-99) Laboratory Tests Test 10/19/17 16:44 10/19/17 21:10 10/20/17 04:15 10/20/17 07:25 Glucose (Fingerstick) 182 mg/dL (70-99) 144 mg/dL (70-99) 121 mg/dL (70-99) White Blood Count 6.2 x10^3/uL (4.0-11.0) Red Blood Count 4.12 x10^6/uL (3.50-5.40) Hemoglobin 11.6 g/dL (12.0-15.5) Hematocrit 35.5 % (36.0-47.0) Mean Corpuscular Volume 86 fL (79-100) Mean Corpuscular Hemoglobin 28 pg (25-35) Mean Corpuscular Hemoglobin Concent 33 g/dL (31-37) Red Cell Distribution Width 15.2 % (11.5-14.5) Platelet Count 289 x10^3/uL (140-400) Neutrophils (%) (Auto) 68 % (31-73) Lymphocytes (%) (Auto) 23 % (24-48) Monocytes (%) (Auto) 7 % (0-9) Eosinophils (%) (Auto) 2 % (0-3) Basophils (%) (Auto) 0 % (0-3) Neutrophils # (Auto) 4.2 x10^3uL (1.8-7.7) Lymphocytes # (Auto) 1.4 x10^3/uL (1.0-4.8) Monocytes # (Auto) 0.4 x10^3/uL (0.0-1.1) Eosinophils # (Auto) 0.1 x10^3/uL (0.0-0.7) Basophils # (Auto) 0.0 x10^3/uL (0.0-0.2) Sodium Level 140 mmol/L (136-145) Potassium Level 3.7 mmol/L (3.5-5.1) Chloride Level 104 mmol/L (98-107) Carbon Dioxide Level 25 mmol/L (21-32) Anion Gap 11 (6-14) Blood Urea Nitrogen 3 mg/dL (7-20) Creatinine 0.7 mg/dL (0.6-1.0) Estimated GFR (Cockcroft-Gault) 95.2 BUN/Creatinine Ratio 4 (6-20) Glucose Level 133 mg/dL (70-99) Calcium Level 8.3 mg/dL (8.5-10.1) Total Bilirubin 0.4 mg/dL (0.2-1.0) Aspartate Amino Transf (AST/SGOT) 21 U/L (15-37) Alanine Aminotransferase (ALT/SGPT) 32 U/L (14-59) Alkaline Phosphatase 53 U/L (46-116) Total Protein 7.5 g/dL (6.4-8.2) Albumin 3.4 g/dL (3.4-5.0) Albumin/Globulin Ratio 0.8 (1.0-1.7) Test 10/20/17 11:47 Glucose (Fingerstick) 156 mg/dL (70-99) Microbiology 10/15/17 Blood Culture - Preliminary, Resulted NO GROWTH AFTER 4 DAYS 10/15/17 Urine Culture - Final, Complete 10/15/17 Urine Culture Result 1 (DAVID) - Final, Complete Medications Current Medications Fentanyl Citrate (Fentanyl 2ml Vial) 50 mcg PRN Q15MIN PRN IV PAIN GREATER THAN 3/10 Last administered on 10/15/17 19:32; Start 10/15/17 at 18:30; Stop 10/16/17 at 18:29; Status DC Sodium Chloride 1,000 ml @ 1,000 mls/hr Q1H IV Last administered on 18:37; Start 10/15/17 at 18:17; Stop 10/15/17 at 19:16; Status DC Promethazine HCl 25 mg/Sodium Chloride 51 ml @ 101 mls/hr 1X ONCE IV Last administered on 10/15/17 18:37; Start 10/15/17 at 18:30; Stop 10/15/17 at 19 :00; Status DC Hydromorphone HCl (Dilaudid) 1 mg PRN Q15MIN PRN IV/SQ PAIN GREATER THAN 3/10 Last administered on 10/15/17 21:15; Start 10/15/17 at 20:00; Stop 10/16/17 at 19:59; Status DC Ciprofloxacin/ Dextrose 200 ml @ 200 mls/hr Q12HR IV Last administered on 08:04; Start 10/16/17 at 09:00 Metronidazole 100 ml @ 100 mls/hr Q8HRS IV Last administered on 10/20/17 05: 05; Start 10/16/17 at 06:00 Metronidazole 100 ml @ 100 mls/hr 1X ONCE IV Last administered on 10/15/17 22:30; Start 10/15/17 at 20:15; Stop 10/15/17 at 21:14; Status DC Ciprofloxacin/ Dextrose 200 ml @ 200 mls/hr 1X ONCE IV Last administered on 10/15/17 20:27; Start 10/15/17 at 20:15; Stop 10/15/17 at 21:14; Status DC Hydromorphone HCl (Dilaudid) 1 mg PRN Q6HRS PRN IV pain; Start 10/15/17 at 20: 45; Stop 10/15/17 at 22:15; Status DC Hydromorphone HCl (Dilaudid) 1 mg PRN Q3HRS PRN IV pain Last administered on 17:25; Start 10/15/17 at 22:15; Stop 10/17/17 at 17:51; Status DC Fentanyl Citrate (Fentanyl 2ml Vial) 50 mcg PRN Q2HR PRN IV PAIN; Start at 22:15; Stop 10/17/17 at 17:51; Status DC Ondansetron HCl (Zofran) 4 mg PRN Q6HRS PRN IV NAUSEA/VOMITING Last administered on 10/18/17 08:41; Start 10/15/17 at 22:15 Sodium Chloride 1,000 ml @ 100 mls/hr Q10H IV Last administered on 10/20/17 02:08; Start 10/15/17 at 22:15 Fluoxetine HCl (PROzac) 60 mg DAILY PO Last administered on 10/20/17 08:09; Start 10/16/17 at 12:00 Acetaminophen/ Hydrocodone Bitart (Lortab 5/325) 1 tab Q6HRS PRN PO MODERATE PAIN; Start 10/16/17 at 11:30; Stop 10/20/17 at 11:29; Status DC Levothyroxine Sodium (Synthroid) 75 mcg DAILY07 PO Last administered on 05:05; Start 10/16/17 at 12:00 Lurasidone HCl (Latuda) 40 mg QHS PO Last administered on 10/19/17 20:01; Start 10/16/17 at 21:00 Acetaminophen/ Hydrocodone Bitart (Lortab 5/325) 2 tab Q6HRS PRN PO SEVERE PAIN Last administered on 10/20/17 05:14; Start 10/16/17 at 11:45; Stop at 11:29; Status DC Sodium Cl/Sod Bicarb/Potass Cl/ PEG (Golytely) 4,000 ml 1X ONCE PO Last administered on 10/16/17 14:01; Start 10/16/17 at 14:00; Stop 10/16/17 at 16 :03; Status DC Bisacodyl (Dulcolax Tab) 10 mg 1X ONCE PO Last administered on 10/16/17 12: 39; Start 10/16/17 at 13:00; Stop 10/16/17 at 13:01; Status DC Lactobacillus Rhamnosus (Culturelle) 1 cap BID PO Last administered on 08:08; Start 10/16/17 at 21:00 Ondansetron HCl (Zofran) 4 mg PRN Q6HRS PRN IV NAUSEA/VOMITING; Start at 07:00; Stop 10/18/17 at 06:59; Status DC Fentanyl Citrate (Fentanyl 2ml Vial) 25 mcg PRN Q5MIN PRN IV MILD PAIN; Start 10/17/17 at 07:00; Stop 10/17/17 at 17:51; Status DC Fentanyl Citrate (Fentanyl 2ml Vial) 50 mcg PRN Q5MIN PRN IV MODERATE TO SEVERE PAIN; Start 10/17/17 at 07:00; Stop 10/17/17 at 17:51; Status DC Morphine Sulfate 1 mg PRN Q10MIN PRN IV SEVERE PAIN; Start 10/17/17 at 07:00; Stop 10/18/17 at 06:59; Status UNV Ringer's Solution 1,000 ml @ 30 mls/hr Q24H IV Last administered on 07:22; Start 10/17/17 at 07:00; Stop 10/17/17 at 18:59; Status DC Lidocaine HCl (Xylocaine-Mpf 1% Vial) 2 ml PRN 1X PRN ID IV START; Start 10/17 at 07:00; Stop 10/18/17 at 06:59; Status DC Hydromorphone HCl (Dilaudid) 0.5 mg PRN Q10MIN PRN IV SEV PAIN, Second choice; Start 10/17/17 at 07:00; Stop 10/17/17 at 17:51; Status DC Prochlorperazine Edisylate (Compazine) 5 mg PACU PRN PRN IV NAUSEA, MRX1; Start 10/17/17 at 07:00; Stop 10/18/17 at 06:59; Status DC Metoclopramide HCl (Reglan Vial) 10 mg PRN Q6HRS PRN IV NAUSEA/VOMITING Last administered on 10/18/17 17:54; Start 10/16/17 at 16:00 Iohexol (Omnipaque 300 Mg/ml) 75 ml 1X ONCE IV Last administered on 16:26; Start 10/16/17 at 16:15; Stop 10/16/17 at 16:16; Status DC Info (Do NOT chart on this entry -- for MONITORING) 1 each PRN DAILY PRN MC SEE COMMENTS; Start 10/16/17 at 16:15; Stop 10/18/17 at 16:14; Status DC Propofol 20 ml @ As Directed STK-MED ONCE IV ; Start 10/17/17 at 07:54; Stop 10/17/17 at 07:55; Status DC Lidocaine HCl (Lidocaine Pf 2% Vial) 5 ml STK-MED ONCE .ROUTE ; Start 10/17/17 at 07:54; Stop 10/17/17 at 07:55; Status DC Propofol 20 ml @ As Directed STK-MED ONCE IV ; Start 10/17/17 at 07:55; Stop 10/17/17 at 07:56; Status DC Pantoprazole Sodium (Protonix) 40 mg DAILYAC PO Last administered on 09:23; Start 10/17/17 at 09:30; Stop 10/17/17 at 11:03; Status DC Pantoprazole Sodium 80 mg/ Sodium Chloride 100 ml @ 10 mls/hr Q10H IV Last administered on 10/19/17 07:02; Start 10/17/17 at 11:00; Stop 10/19/17 at 10 :54; Status DC Ondansetron HCl (Zofran) 4 mg PRN Q6HRS PRN IV NAUSEA/VOMITING 1ST CHOICE; Start 10/17/17 at 11:15; Stop 10/17/17 at 16:01; Status DC Hydromorphone HCl (Dilaudid) 1 mg 1X ONCE IV Last administered on 10/17/17 11:11; Start 10/17/17 at 11:15; Stop 10/17/17 at 17:51; Status DC Potassium Chloride 100 ml @ 100 mls/hr Q1H IV Last administered on 10/17/17 17:25; Start 10/17/17 at 13:00; Stop 10/17/17 at 14:59; Status DC Hydromorphone HCl (Dilaudid) 1.5 mg PRN Q4HRS PRN IV PAIN; Start 10/17/17 at 18:00; Stop 10/17/17 at 18:00; Status DC Hydromorphone HCl (Dilaudid) 1.5 mg PRN Q3HRS PRN IV PAIN Last administered on 10/20/17 10:31; Start 10/17/17 at 18:00 Hydromorphone HCl (Dilaudid) 0.5 mg 1X ONCE IV Last administered on 18:08; Start 10/17/17 at 18:00; Stop 10/17/17 at 18:01; Status DC Metoclopramide HCl (Reglan) 10 mg TIDACHC PO Last administered on 10/20/17 11 :41; Start 10/19/17 at 11:30 Pantoprazole Sodium (PROTONIX VIAL for IV PUSH) 40 mg BIDAC IVP Last administered on 10/20/17 05:06; Start 10/19/17 at 16:30 Insulin Aspart (NovoLOG) 0-7 UNITS TIDWMEALS SQ Last administered on 11:51; Start 10/19/17 at 17:30 Dextrose (Dextrose 50%-Water Syringe) 12.5 gm PRN Q15MIN PRN IV SEE COMMENTS; Start 10/19/17 at 17:30 Active Scripts Active [place] 5-325 Tablet (Acetaminophen/Hydrocodone Bitart) 1 Each Tablet 1-2 Tab PO Q4-6HRS [Oxycodone Hcl/Acetaminophen] 1 TAB Tablet 1 Tab PO PRN Q4HRS PRN Reported Cipro (Ciprofloxacin Hcl) 500 Mg Tablet 1 Tab PO BID Reglan (Metoclopramide Hcl) 10 Mg Tablet 10 Mg PO QIDACHS Protonix (Pantoprazole Sodium) 40 Mg Tablet. 1 Tab PO DAILY Flagyl (Metronidazole) 500 Mg Tablet 500 Mg PO TID Prozac (Fluoxetine Hcl) 20 Mg Capsule 60 Mg PO DAILY Latuda (Lurasidone Hcl) 40 Mg Tablet 1 Tab PO QHS Vyvanse (Lisdexamfetamine Dimesylate) 50 Mg Capsule 50 Mg PO DAILY Levothyroxine Sodium 75 Mcg Tablet 1 Tab PO DAILY Metformin Hcl 1,000 Mg Tablet 1 Tab PO BID Vitals/I & O Vital Sign - Last 24 Hours 10/19/17 10/19/17 10/19/17 12/23/17 15:00 16:32 19:00 20:00 Temp 97.9 96.6 97.9 96.6 Pulse 83 87 Resp 18 20 18 B/P (MAP) 115/70 (85) 113/68 (83) Pulse Ox 96 93 96 O2 Delivery Room Air Room Air Room Air Room Air 10/19/17 10/19/17 10/19/17 10/19/17 20:08 21:20 23:00 23:12 Temp 97.9 97.9 Pulse 79 Resp 18 18 18 18 B/P (MAP) 112/61 (78) Pulse Ox 96 96 95 95 O2 Delivery Room Air Room Air Room Air Room Air 10/20/17 10/20/17 10/20/17 10/20/17 02:34 03:00 05:14 06:14 Temp 97.9 97.9 Pulse 85 Resp 18 18 18 18 B/P (MAP) 106/52 (70) Pulse Ox 95 95 95 95 O2 Delivery Room Air Room Air Room Air Room Air 10/20/17 10/20/17 10/20/17 10/20/17 07:00 07:18 08:00 10:31 Temp 99.5 99.5 Pulse 84 Resp 18 20 20 B/P (MAP) 113/65 (81) Pulse Ox 94 95 95 O2 Delivery Room Air Room Air Room Air Room Air 10/20/17 11:01 Resp 20 Pulse Ox 95 O2 Delivery Room Air Intake and Output 10/19/17 10/19/17 10/20/17 15:00 23:00 07:00 Intake Total 56 ml 300 ml Balance 56 ml 300 ml AMILCAR DESAI III DO Oct 20, 2017 13:00
== END 2017-10-20 12:50 | disposition home or self-care (01) | DRG 391 ==
LOC: ER 17:43 → 5 NORTH 20:00
PROVIDERS: ADMIT Internal Medicine; ATTEND Internal Medicine
PROC: 0DB68ZX Excision of Stomach, Via Natural or Artificial Opening Endoscopic, Diagnostic (ICD-10-PCS; principal; 2017-10-17 08:00)
PROC: 0DB98ZX Excision of Duodenum, Via Natural or Artificial Opening Endoscopic, Diagnostic (ICD-10-PCS; 2017-10-17 08:00)
DX: K52.9 Noninfective gastroenteritis and colitis, unspecified (principal); K26.0 Acute duodenal ulcer with hemorrhage; K31.84 Gastroparesis; E66.01 Morbid (severe) obesity due to excess calories; E11.43 Type 2 diabetes mellitus with diabetic autonomic (poly)neuropathy; K76.0 Fatty (change of) liver, not elsewhere classified; Z68.41 Body mass index [BMI] 40.0-44.9, adult; I48.91 Unspecified atrial fibrillation; F98.8 Other specified behavioral and emotional disorders with onset usually occurring in childhood and adolescence; E03.9 Hypothyroidism, unspecified; E66.9 Obesity, unspecified; F31.9 Bipolar disorder, unspecified; Z82.49 Family history of ischemic heart disease and other diseases of the circulatory system; Z87.442 Personal history of urinary calculi; Z90.710 Acquired absence of both cervix and uterus; Z88.8 Allergy status to other drugs, medicaments and biological substances; Z90.49 Acquired absence of other specified parts of digestive tract
CPT/HCPCS: 36415; 74022; 74177; 80048; 80053; 80076; 80307; 81001; 82553; 82962; 83605; 83690; 84484; 85025; 85610; 85730; 87040; 87086; 88305; 88342; 93005; C9113; J0744; J1170; J1815; J2405; J2550; J2704; J2765; J3010; J3480; J3490; J7030; J7120; J8597; Q9967; G0479; J2001

== ENCOUNTER 2018-05-05 15:23 | Emergency (ER) | payer OTHER ==
[2018-05-05 15:54] LABS: ADD MAN DIFF? NO
[2018-05-05 15:57] LABS: BASO # 0.1 x10^3/uL (0.0-0.2); BASO % 1 % (0-3); EOS # 0.1 x10^3/uL (0.0-0.7); EOS % 1 % (0-3); HEMATOCRIT 39.2 % (36.0-47.0); HEMOGLOBIN 13.3 g/dL (12.0-15.5); LYMPH # 2.3 x10^3/uL (1.0-4.8); LYMPH % 21 % (24-48); MEAN CORPUSCULAR HEMOGLOBIN 30 pg (25-35); MEAN CORPUSCULAR HGB CONC 34 g/dL (31-37); MEAN CORPUSCULAR VOLUME 89 fL (79-100); MONO # 0.5 x10^3/uL (0.0-1.1); MONO % 4 % (0-9); NEUT # 8.2 x10^3uL (1.8-7.7); NEUT % 74 % (31-73); PLATELET COUNT 391 x10^3/uL (140-400); RED BLOOD COUNT 4.39 x10^6/uL (3.50-5.40); RED CELL DISTRIBUTION WIDTH 15.5 % (11.5-14.5); WHITE BLOOD COUNT 11.1 x10^3/uL (4.0-11.0)
[2018-05-05] MEDS: ONDANSETRON PF 4 MG/2 ML VIAL. IV (15:59)
[2018-05-05] MEDS: IV NORMAL SALINE 1000ML BAG 1,000 ML IV (15:59)
[2018-05-05] MEDS: fentaNYL PF VIAL 100 MCG/2 ML VIAL IV (16:01)
[2018-05-05 16:17] LABS: ANION GAP 15 (6-14); BLOOD UREA NITROGEN 14 mg/dL (7-20); BUN/CREATININE RATIO 16 (6-20); CALCIUM 9.3 mg/dL (8.5-10.1); CARBON DIOXIDE 20 mmol/L (21-32); CHLORIDE 102 mmol/L (98-107); CREATININE 0.9 mg/dL (0.6-1.0); GFR 70.8; GLUCOSE 127 mg/dL (70-99); POTASSIUM 3.7 mmol/L (3.5-5.1); SODIUM 137 mmol/L (136-145)
[2018-05-05 16:23] LABS: ALBUMIN 4.3 g/dL (3.4-5.0); ALBUMIN/GLOBULIN RATIO 1.1 (1.0-1.7); ALK PHOS 62 U/L (46-116); ALT (SGPT) 35 U/L (14-59); AST (SGOT) 19 U/L (15-37); LIPASE 222 U/L (73-393); TOTAL BILIRUBIN 0.5 mg/dL (0.2-1.0); TOTAL PROTEIN 8.3 g/dL (6.4-8.2)
[2018-05-05 16:32] LABS: BILIRUBIN,URINE NEGATIVE (NEG); CLARITY,URINE CLEAR; COLOR,URINE YELLOW; GLUCOSE,URINE NEGATIVE (NEG); NITRITE,URINE NEGATIVE (NEG); PH,URINE 5.5; PROTEIN,URINE NEGATIVE (NEG-TRACE); UROBILINOGEN,URINE 0.2 mg/dL (0.2 mg/dL)
[2018-05-05 16:38] LABS: RBC,URINE 0 /HPF (0-2); WBC,URINE 0 /HPF (0-4)
[2018-05-05] MEDS: LIDO:MAALOX 1:1 20 ML SINGLE DOSE. SWSW (16:38)
[2018-05-05] MEDS: PROMETHAZINE IM 25 MG/ML VIAL IM (16:38)
[2018-05-05 16:39] LABS: BACTERIA,URINE FEW /HPF (0-FEW); SQUAMOUS EPITHELIAL CELL,UR MOD /LPF
[2018-05-05] MEDS ORDERED: CONTRAST GIVEN. MC (16:45)
[2018-05-05] MEDS: IOHEXOL 300 MG/ML 100ML VIAL. IV (16:52)
== END 2018-05-05 18:38 | disposition home or self-care (01) ==
LOC: ER 15:23
DX: K29.00 Acute gastritis without bleeding (principal); I48.91 Unspecified atrial fibrillation; K58.9 Irritable bowel syndrome, unspecified; E11.9 Type 2 diabetes mellitus without complications; Z87.442 Personal history of urinary calculi; Z90.49 Acquired absence of other specified parts of digestive tract; Z97.10 Presence of artificial limb (complete) (partial), unspecified; Z88.5 Allergy status to narcotic agent; Z88.8 Allergy status to other drugs, medicaments and biological substances
CPT/HCPCS: 36415; 74177; 80053; 81001; 83690; 85025; 96361; 96372; 96374; 96375; 99285-25; J2405; J2550; J3010; J7030; Q9967

== ENCOUNTER 2018-07-09 18:18 | Emergency (ER) | payer OTHER ==
[~2018-07-09] VITALS: Ht 167.6 cm; Wt 117.9 kg
[~2018-07-09 18:18] MED LIST changes: +CIPR500T94 PO; +ESTR0.5T PO; +FLUO20CA16 PO; +IRON1CAP14 PO; +LISD50CA3 PO; +LURA40TA PO; -METF-620 PO; +METF10007 PO; +METO10TA81 PO; +METR500T PO; +PANT40TA3 PO; +SUCR1TAB35 PO
[2018-07-09] MEDS ORDERED: ONDANSETRON PF 4 MG/2 ML VIAL. IV ONE (18:45)
[2018-07-09] MEDS ORDERED: IV NORMAL SALINE 1000ML BAG 1,000 ML IV ONE (18:45)
[2018-07-09] MEDS ORDERED: fentaNYL PF VIAL 100 MCG/2 ML VIAL IV ONE (18:45)
--- NOTE | 2018-07-09 19:10 | PHYS DOC ---
Past Medical History Past Medical History: A-Fib, Anemia, Depression, Diabetes-Type II, GERD, Kidney Stone, Other Additional Past Medical Histor: multiple spontaneous abortions, ulcerative colitis, IBS; bowel obstruction Past Surgical History: Cholecystectomy, , Hysterectomy, Other Additional Past Surgical Histo: D&C, lithotripsy Alcohol Use: Occasionally Drug Use: None Adult General Chief Complaint Chief Complaint: ABDOMINAL PAIN HPI HPI Patient is a 38 year old f with cc of abdo pain. since saturday epigastric described as sharp cramping and intermittent in nature but comes in waves of severity no fever butf eels hot with night sweats. no vomiting just nausea, loose stool greenish in color frequent, this is common for her. apparently had colonoscopy possible ?colitis although ct and mri in our system do not reveal that. Review of Systems Review of Systems Constitutional:night sweats Eyes: Denies change in visual acuity, redness, or eye pain [] HENT: Denies nasal congestion or sore throat [] : Denies dysuria or hematuria [] Musculoskeletal: Denies back pain or joint pain [] All other systems were reviewed and found to be within normal limits, except as documented in this note. Current Medications Current Medications Current Medications Medications (Trade) Dose Ordered Sig/Chandler Start Time Stop Time Status Last Admin Dose Admin Fentanyl Citrate (Fentanyl 2ml Vial) 50 mcg 1X ONCE 07/09/18 18:45 07/09/18 18:46 DC 07/09/18 19:51 50 MCG Multi-Ingredient Mouthwash/Gargle (Gi Cocktail) 20 ml 1X ONCE 07/09/18 19:15 07/09/18 19:16 DC 07/09/18 19:50 20 ML Ondansetron HCl (Zofran) 4 mg 1X ONCE 07/09/18 18:45 07/09/18 18:46 DC 07/09/18 19:51 4 MG Prochlorperazine Edisylate (Compazine) 10 mg 1X ONCE 07/09/18 19:15 07/09/18 19:16 DC 07/09/18 19:51 10 MG Sodium Chloride 1,000 ml @ 1,000 mls/hr 1X ONCE 07/09/18 18:45 07/09/18 19:44 DC 07/09/18 19:50 1,000 MLS/HR Allergies Allergies Allergies Coded Allergies Type Severity Reaction Last Updated Verified morphine Allergy Intermediate TOLERATES DILAUDID 07/04/18 Yes phentermine Allergy Intermediate ANGRY 07/04/18 Yes butorphanol Adverse Reaction Severe "i get very angry" 07/04/18 Yes Physical Exam Physical Exam Constitutional: Well developed, well nourished, no acute distress, non-toxic appearance. [] HENT: Normocephalic, atraumatic, bilateral external ears normal, oropharynx moist, no oral exudates, nose normal. [] Eyes: PERRLA, EOMI, conjunctiva normal, no discharge. [] Neck: Normal range of motion, no tenderness, supple, no stridor. [] Lungs & Thorax: normal effort no increased work of breathing Abdomen: Bowel sounds normal, soft, epigastric tenderness, easily reducible ventral hernia appears somewhat inferior to the site of ttp. Skin: Warm, dry, no erythema, no rash. [] Extremities: No tenderness, no cyanosis, no clubbing, ROM intact, no edema. [] Neurologic: Alert and oriented X 3, normal motor function, normal sensory function, no focal deficits noted. [] Psychologic: Affect normal, judgement normal, mood normal. [] Current Patient Data Vital Signs Vital Signs Date Time Temp Pulse Resp B/P (MAP) Pulse Ox O2 Delivery O2 Flow Rate FiO2 07/09/18 20:52 82 14 124/66 (85) 97 Room Air 07/09/18 18:18 98.5 98.5 Lab Values Laboratory Tests Test 07/09/18 19:43 White Blood Count 8.8 x10^3/uL (4.0-11.0) Red Blood Count 4.16 x10^6/uL (3.50-5.40) Hemoglobin 13.1 g/dL (12.0-15.5) Hematocrit 37.9 % (36.0-47.0) Mean Corpuscular Volume 91 fL (79-100) Mean Corpuscular Hemoglobin 32 pg (25-35) Mean Corpuscular Hemoglobin Concent 35 g/dL (31-37) Red Cell Distribution Width 14.3 % (11.5-14.5) Platelet Count 390 x10^3/uL (140-400) Neutrophils (%) (Auto) 72 % (31-73) Lymphocytes (%) (Auto) 22 % (24-48) L Monocytes (%) (Auto) 5 % (0-9) Eosinophils (%) (Auto) 1 % (0-3) Basophils (%) (Auto) 1 % (0-3) Neutrophils # (Auto) 6.3 x10^3uL (1.8-7.7) Lymphocytes # (Auto) 2.0 x10^3/uL (1.0-4.8) Monocytes # (Auto) 0.4 x10^3/uL (0.0-1.1) Eosinophils # (Auto) 0.1 x10^3/uL (0.0-0.7) Basophils # (Auto) 0.0 x10^3/uL (0.0-0.2) Sodium Level 140 mmol/L (136-145) Potassium Level 3.0 mmol/L (3.5-5.1) L Chloride Level 102 mmol/L (98-107) Carbon Dioxide Level 25 mmol/L (21-32) Anion Gap 13 (6-14) Blood Urea Nitrogen 10 mg/dL (7-20) Creatinine 0.8 mg/dL (0.6-1.0) Estimated GFR (Cockcroft-Gault) 81.2 BUN/Creatinine Ratio 13 (6-20) Glucose Level 176 mg/dL (70-99) H Calcium Level 9.7 mg/dL (8.5-10.1) Total Bilirubin 0.4 mg/dL (0.2-1.0) Aspartate Amino Transferase (AST) 27 U/L (15-37) Alanine Aminotransferase (ALT) 44 U/L (14-59) Alkaline Phosphatase 71 U/L (46-116) Troponin I Quantitative < 0.017 ng/mL (0.000-0.055) Total Protein 8.5 g/dL (6.4-8.2) H Albumin 3.9 g/dL (3.4-5.0) Albumin/Globulin Ratio 0.8 (1.0-1.7) L Lipase 216 U/L (73-393) Laboratory Tests 07/09/18 19:43 Laboratory Tests 07/09/18 19:43 EKG EKG [] Radiology/Procedures Radiology/Procedures [] Course & Med Decision Making Course & Med Decision Making Pertinent Labs and Imaging studies reviewed. (See chart for details) []38 yo f with abdo pain and vomiting. Patient is a reported history of possible colitis she had a CT read as possible underdistention versus colitis she had a colonoscopy I reviewed the pathology results that are just recently come back that showed no destructive colitis She does have a history of duodenitis as well as a ventral hernia. Her lab work is unremarkable she was given a dose of fentanyl and GI cocktail in the emergency room with resolution of her symptoms she feels much better on reevaluation. She may have symptomatic peptic ulcer disease and/or a symptomatic hernia but it is not strangulated on clinical examination. Prescription for pain medication was given and patient was advised to take an antacid medication and follow-up with primary care and surgery as she is artery scheduled to do. At this point time given the recent fairly normal imaging CT and MRI on the last couple of presentations I don't think that we need to repeat imaging at this time return precautions were discussed. Dragon Disclaimer Dragon Disclaimer This electronic medical record was generated, in whole or in part, using a voice recognition dictation system. Departure Departure Impression: Primary Impression: Abdominal pain Disposition: 01 HOME, SELF-CARE Condition: STABLE Referrals: OVIDIO DIAMOND (PCP) Scripts Omeprazole (OMEPRAZOLE) 40 Mg Capsule.dr 1 CAP PO DAILY, #30 CAP 3 Refills Prov: NILTON JONES MD 07/09/18 Ondansetron Hcl (ZOFRAN) 4 Mg Tablet 4 MG PO PRN TID PRN for NAUSEA/VOMITING, #15 nausea/vomiting Prov: NILTON JONES MD 07/09/18 Hydrocodone/Apap 5-325 (NORCO 5-325 TABLET) 1 Each Tablet 1-2 EACH PO PRN Q6HRS PRN for PAIN, #15 as needed for pain Prov: NILTON JONES MD 07/09/18 NILTON JONES MD Jul 09, 2018 19:10
[2018-07-09] MEDS ORDERED: LIDO:MAALOX 1:1 20 ML SINGLE DOSE. PO ONE (19:15)
[2018-07-09] MEDS ORDERED: PROCHLORPERAZINE 10 MG/2 ML VIAL. IV ONE (19:15)
[2018-07-09 19:50] LABS: BASO % 1 % (0-3); EOS # 0.1 x10^3/uL (0.0-0.7); EOS % 1 % (0-3); HEMATOCRIT 37.9 % (36.0-47.0); HEMOGLOBIN 13.1 g/dL (12.0-15.5); LYMPH % 22 % (24-48); MEAN CORPUSCULAR HEMOGLOBIN 32 pg (25-35); MEAN CORPUSCULAR HGB CONC 35 g/dL (31-37); MEAN CORPUSCULAR VOLUME 91 fL (79-100); MONO # 0.4 x10^3/uL (0.0-1.1); MONO % 5 % (0-9); NEUT # 6.3 x10^3uL (1.8-7.7); NEUT % 72 % (31-73); PLATELET COUNT 390 x10^3/uL (140-400); RED BLOOD COUNT 4.16 x10^6/uL (3.50-5.40); RED CELL DISTRIBUTION WIDTH 14.3 % (11.5-14.5); WHITE BLOOD COUNT 8.8 x10^3/uL (4.0-11.0)
[2018-07-09 20:03] LABS: CALCIUM 9.7 mg/dL (8.5-10.1); CREATININE 0.8 mg/dL (0.6-1.0); GFR 81.2
[2018-07-09 20:08] LABS: ALBUMIN 3.9 g/dL (3.4-5.0); ALBUMIN/GLOBULIN RATIO 0.8 (1.0-1.7); TOTAL BILIRUBIN 0.4 mg/dL (0.2-1.0); TOTAL PROTEIN 8.5 g/dL (6.4-8.2)
[2018-07-09 20:52] VITALS: BP 124/66
[2018-07-09] MEDS ORDERED: ONDA4TAB7 PO (20:54)
[2018-07-09] MEDS ORDERED: OMEP40CA5 PO (20:54)
[2018-07-09] MEDS ORDERED: HYDR-971 PO (20:54)
== END 2018-07-09 21:06 | disposition home or self-care (01) ==
LOC: ER 18:18
DX: R10.13 Epigastric pain (principal); I48.91 Unspecified atrial fibrillation; K21.9 Gastro-esophageal reflux disease without esophagitis; E11.9 Type 2 diabetes mellitus without complications; K58.9 Irritable bowel syndrome, unspecified; Z87.442 Personal history of urinary calculi; Z90.710 Acquired absence of both cervix and uterus; Z90.49 Acquired absence of other specified parts of digestive tract; Z88.6 Allergy status to analgesic agent; Z88.8 Allergy status to other drugs, medicaments and biological substances; Z86.2 Personal history of diseases of the blood and blood-forming organs and certain disorders involving the immune mechanism
CPT/HCPCS: 36415; 80053; 83690; 84484; 85025; 96374; 96375; 99284; J0780; J2405; J3010; J7030

== ENCOUNTER 2018-07-17 11:23 | Day surgery (SDC) | payer OTHER ==
[~2018-07-17] VITALS: Ht 163.8 cm; Wt 115.7 kg
[~2018-07-17 11:23] MED LIST changes: +BUPIVAC MPF-EPI 0.5%-1:200000 30 ML VIAL. ONE; +HYDROmorphone 2 MG/ML VIAL IV PRN; +IV RINGERS,LACTATED 1000ML 1,000 ML IV SCH; +LIDOCAINE 1% PF 2 ML VIAL. ID PRN; +MORPHINE SULFATE 2 MG/ML VIAL. IV PRN; +OMEP40CA5 PO; +ONDA4TAB7 PO; +ONDANSETRON PF 4 MG/2 ML VIAL. IV PRN; +fentaNYL PF VIAL 100 MCG/2 ML VIAL IV PRN
[2018-07-17] MEDS ORDERED: fentaNYL PF VIAL 100 MCG/2 ML VIAL ONE ×6 (11:43→16:09)
[2018-07-17] MEDS ORDERED: SEVOFLURANE 61 TO 120 MINUTES. IH ONE (11:43)
[2018-07-17] MEDS ORDERED: KETOROLAC 30 MG/ML INJ FOR OR. INJ ONE (11:44)
[2018-07-17] MEDS ORDERED: ROCURONIUM 50 MG/5 ML VIAL. ONE ×2 (11:44→13:18)
[2018-07-17] MEDS ORDERED: MIDAZOLAM HCL/PF 2 MG/2 ML VIAL. ONE (11:44)
[2018-07-17] MEDS ORDERED: DEXAMETHASONE SOD PHOS 20 MG/5 ML VIAL. ONE (11:44)
[2018-07-17] MEDS ORDERED: NEOSTIGMINE METHYLSULFATE 5 MG/5 ML SYRINGE. ONE (11:44)
[2018-07-17] MEDS ORDERED: GLYCOPYRROLATE 1 MG/5 ML VIAL. ONE (11:44)
[2018-07-17] MEDS ORDERED: LIDOCAINE 2% PF Vial for OR 5 ML VIAL. ONE (11:44)
[2018-07-17] MEDS ORDERED: PROPOFOL 20 ML IV ONE (11:44)
[2018-07-17] MEDS ORDERED: ONDANSETRON PF 4 MG/2 ML VIAL. ONE (11:44)
--- NOTE | 2018-07-17 13:59 | PDOC4 ---
Operative Note Operative Note Date: 07/17/2018 Preoperative diagnosis: Epigastric incisional hernia Postoperative diagnosis: Same Procedure: Robotic-assisted laparoscopic incisional hernia repair with mesh Surgeon: Kb Specimen: None Dictation: Patient is a 38-year-old female had undergone a laparoscopic cholecystectomy recently been having pain at the epigastric port site CT scan showed small hernia with incarcerated fat. Procedure of robotic-assisted laparoscopic incisional hernia repair with mesh was explained to the patient detail all risks and benefits were also discussed including bleeding infection injury to intra-abdominal contents possibly necessitating further or open operations alternatives to this procedure also discussed with patient who seemed understanding gave both verbal and written consent had procedure performed. Patient was taken to the operating room placed in supine position general anesthesia was initiated once patient was asleep and intubated her abdomen was prepped and draped usual sterile fashion using ChloraPrep and area in the left upper quadrant was injected with quarter percent Marcaine with epinephrine incision was made with 11 blade scalpel and a 5 mm Visiport was placed under direct visualization into the abdomen and a pneumoperitoneum was created. Once this was complete a da Rodri port was placed in the left mid abdomen and a second da Rodri port was placed in the lower abdomen and a third in the left upper quadrant. The da Rodri robot was brought in and docked all port sites surgeon went to the robotic console using grasper and Endo Bettina scissors the hernia sac and contents were reduced the hernia was then closed with a running 20 nonabsorbable V lock suture. Bard ventral light ST mesh was then placed over the hernia defect this was sewn into place with a running 20 absorbable V lock suture. At this point the pneumoperitoneum was reduced all ports removed the da Rodri robot undocked all port sites were closed with 4 septic or Monocryl Mastisol Steri-Strips and Band-Aids were applied as dressings. Patient was waken expanded in the operating room taken recovery in stable condition all sponge instrument needle counts listed as correct estimated blood loss 5 mL WILLIE HAYNES MD Jul 17, 2018 13:59
--- NOTE | 2018-07-17 14:00 | DISCH ---
DISCHARGE INSTRUCTIONS Condition on Discharge Condition on Discharge: Stable Activity After Discharge Activity Instructions for Disc: Avoid exertion Other activity instructions: no lifting more than 20 pounds for 2 weeks Lifting Instructions after Dis: No heavy lifting Diet after Discharge Diet after Discharge: Regular Wound Incision Care Other wound/incision instructi: Reba shower in 24 hours Contacting the DRAndres after DC Call your doctor for: If your condition worsens Follow-Up Follow up with: Dr. Haynes in 2 weeks Treatment/Equipment after DC Adaptive Equipment Issued: None WILLIE HAYNES MD Jul 17, 2018 14:00
[2018-07-17] MEDS ORDERED: OXYC-323 PO (14:21)
[2018-07-17] MEDS: fentaNYL PF VIAL 100 MCG/2 ML VIAL IV PRN ×6 (14:34→16:27)
[2018-07-17] MEDS ORDERED: PROCHLORPERAZINE 10 MG/2 ML VIAL. ONE (15:03)
[2018-07-17] MEDS: PROCHLORPERAZINE 10 MG/2 ML VIAL. IV PRN ×2 (15:07→15:18)
[2018-07-17] MEDS ORDERED: oxyCODONE/APAP 5/325 1 TAB TABLET PO ONE (16:30)
[2018-07-17 16:50] VITALS: BP 132/87
== END 2018-07-17 17:03 | disposition home or self-care (01) ==
LOC: SURG 11:23
PROVIDERS: ATTEND Surgery
DX: K43.2 Incisional hernia without obstruction or gangrene (principal); E11.9 Type 2 diabetes mellitus without complications; F31.9 Bipolar disorder, unspecified; F41.9 Anxiety disorder, unspecified; E03.9 Hypothyroidism, unspecified; E66.01 Morbid (severe) obesity due to excess calories; Z68.41 Body mass index [BMI] 40.0-44.9, adult; Z87.442 Personal history of urinary calculi; Z90.710 Acquired absence of both cervix and uterus; Z90.49 Acquired absence of other specified parts of digestive tract; Z98.890 Other specified postprocedural states; Z82.49 Family history of ischemic heart disease and other diseases of the circulatory system; Z83.3 Family history of diabetes mellitus; Z87.891 Personal history of nicotine dependence; Z88.5 Allergy status to narcotic agent; Z88.6 Allergy status to analgesic agent; Z88.8 Allergy status to other drugs, medicaments and biological substances; Z79.84 Long term (current) use of oral hypoglycemic drugs; Z79.899 Other long term (current) drug therapy
CPT/HCPCS: 49654; 82962; A7015; C1781; J0690; J0780; J1100; J1885; J2001; J2250; J2405; J2704; J2710; J3010; J3490; J7120; S2900

== ENCOUNTER 2019-04-27 14:10 | Emergency (ER) | payer OTHER ==
[~2019-04-27] VITALS: Ht 167.6 cm; Wt 115.7 kg
[~2019-04-27 14:10] MED LIST changes: -BUPIVAC MPF-EPI 0.5%-1:200000 30 ML VIAL. ONE; +HYDR-3164 PO; -HYDR-971 PO; -HYDROmorphone 2 MG/ML VIAL IV PRN; -IV RINGERS,LACTATED 1000ML 1,000 ML IV SCH; -LIDOCAINE 1% PF 2 ML VIAL. ID PRN; -MORPHINE SULFATE 2 MG/ML VIAL. IV PRN; -ONDANSETRON PF 4 MG/2 ML VIAL. IV PRN; +OXYC1TAB15 PO; -PANT40TA3 PO; +PANT40TA77 PO; -fentaNYL PF VIAL 100 MCG/2 ML VIAL IV PRN
[2019-04-27] MEDS ORDERED: IV NORMAL SALINE 1000ML BAG 1,000 ML IV SCH (14:33)
[2019-04-27 14:37] VITALS: BP 170/102
--- NOTE | 2019-04-27 14:38 | PHYS DOC ---
Past Medical History Past Medical History: A-Fib, Anemia, Depression, Diabetes-Type II, GERD, Kidney Stone, Other Additional Past Medical Histor: multiple spontaneous abortions, ulcerative colitis, IBS; bowel obstruction Past Surgical History: Cholecystectomy, , Hysterectomy, Other Additional Past Surgical Histo: D&C, lithotripsy Alcohol Use: Occasionally Drug Use: None Adult General Chief Complaint Chief Complaint: NAUSEA/VOMITING/[facility] HPI Patient is a 39-year-old female who presents to the emergency department for evaluation. She states she has been having "kidney" pain for a few weeks, and was seen at [facility] about a week ago and had a CT scan, which was negative for kidney stones, something the patient states she has had in the past numerous times. She states she is scheduled to see a urologist tomorrow here for her kidney pain, but states that she began experiencing episodes of vomiting today. She has not had any diarrhea. She does report some generalized upper abdominal pain. She has not had any fevers or chills, or dysuria. She states that she was told that she had hematuria, but has not had any gross hematuria. There are no alleviating, or exacerbating factors to her symptoms. I will review records from the visit at [facility]. Update: The patient's CT from [facility] from 04/14/19 and has been reviewed. I have reviewed the patient's records, and pinning this facility and [facility] she has had approximately 19 CT scans of her abdomen and pelvis in the past 3 years. Review of Systems Review of Systems Constitutional: Denies fever or chills [] Eyes: Denies change in visual acuity, redness, or eye pain [] HENT: Denies nasal congestion or sore throat [] Respiratory: Denies cough or shortness of breath [] Cardiovascular:The patient denies any shortness of breath, chest pain, palpitations, or orthopnea [] GI: No additional information not addressed in HPI [] : No additional information not addressed in HPI [] Musculoskeletal: Denies neck pain or joint pain . Reports bilateral flank pain.[] Integument: Denies rash or skin lesions [] Neurologic: Denies headache, focal weakness or sensory changes [] Endocrine: Denies polyuria or polydipsia [] All other systems were reviewed and found to be within normal limits, except as documented in this note. Current Medications Current Medications Current Medications Medications (Trade) Dose Ordered Sig/Chandler Start Time Stop Time Status Last Admin Dose Admin Diphenhydramine HCl (Benadryl) 12.5 mg 1X ONCE 04/27/19 14:45 04/27/19 14:46 DC 04/27/19 15:24 12.5 MG Lorazepam (Ativan Inj) 1 mg 1X ONCE 04/27/19 14:45 04/27/19 14:46 DC 04/27/19 15:26 1 MG Magnesium Sulfate 50 ml @ 25 mls/hr 1X ONCE 04/27/19 18:00 04/27/19 19:59 Potassium Chloride/Water 100 ml @ 100 mls/hr Q1H 04/27/19 17:00 04/27/19 18:59 04/27/19 16:47 100 MLS/HR Potassium Chloride (Klor-Con) 40 meq 1X ONCE 04/27/19 16:30 04/27/19 16:31 DC 04/27/19 16:47 40 MEQ Prochlorperazine Edisylate (Compazine) 10 mg 1X ONCE 04/27/19 14:45 04/27/19 14:46 DC 04/27/19 15:19 10 MG Sodium Chloride 1,000 ml @ 1,000 mls/hr Q1H 04/27/19 14:33 04/27/19 15:32 DC 04/27/19 15:21 1,000 MLS/HR Allergies Allergies Allergies Coded Allergies Type Severity Reaction Last Updated Verified morphine Allergy Intermediate TOLERATES DILAUDID 07/16/18 Yes phentermine Allergy Intermediate ANGRY 07/16/18 Yes butorphanol Adverse Reaction Severe "i get very angry" 07/16/18 Yes Physical Exam Physical Exam PHYSICAL EXAM: CONSTITUTIONAL: Well developed, well nourished HEAD: normocephalic, atraumatic EENT: PERRL, EOMI. Conjunctivae normal color, sclerae non-icteric; moist mucous membranes. NECK: Supple, non-tender; no meningismus. LUNGS: Lungs CTA, breathing even and unlabored. Normal air movement. HEART: Regular tachycardia, no murmur CHEST: No deformity; non-tender ABDOMEN: The abdomen is soft, there is diffuse upper abdominal tenderness to palpation, without focal tenderness, rebound, or guarding, bowel sounds are present, they're lower abdomen is soft and non-tender, no masses or bruits. EXTREM: Normal ROM; no deformity, no calf tenderness. Normal pulses palpable in all extremities. There is no pedal edema. SKIN: No rash; no diaphoresis NEURO: Alert; normal speech and cognition; CN's grossly intact; strength grossly intact without focal deficit. BACK: There is mild bilateral CVA TTP. PSYCHIATRIC: The patient exhibits an anxious affect. Current Patient Data Vital Signs Vital Signs Date Time Temp Pulse Resp B/P (MAP) Pulse Ox O2 Delivery O2 Flow Rate FiO2 04/27/19 14:37 98.9 115 22 170/102 (124) 99 Room Air 98.9 Lab Values Laboratory Tests Test 04/27/19 14:15 04/27/19 14:21 04/27/19 15:35 Urine Collection Type Unknown Urine Color Yellow Urine Clarity Clear Urine pH 5.5 Urine Specific Saline 1.025 Urine Protein Negative mg/dL (NEG-TRACE) Urine Glucose (UA) Negative mg/dL (NEG) Urine Ketones (Stick) 40 mg/dL (NEG) Urine Blood Trace (NEG) Urine Nitrite Negative (NEG) Urine Bilirubin Small (NEG) Urine Urobilinogen Dipstick 0.2 mg/dL (0.2 mg/dL) Urine Leukocyte Esterase Trace (NEG) Urine RBC Rare /HPF (0-2) Urine WBC 1-4 /HPF (0-4) Urine Squamous Epithelial Cells Many /LPF Urine Bacteria Few /HPF (0-FEW) Urine Mucus Marked /LPF POC Urine HCG, Qualitative Hcg negative (Negative) White Blood Count 8.1 x10^3/uL (4.0-11.0) Red Blood Count 4.24 x10^6/uL (3.50-5.40) Hemoglobin 13.3 g/dL (12.0-15.5) Hematocrit 38.0 % (36.0-47.0) Mean Corpuscular Volume 90 fL (79-100) Mean Corpuscular Hemoglobin 32 pg (25-35) Mean Corpuscular Hemoglobin Concent 35 g/dL (31-37) Red Cell Distribution Width 13.6 % (11.5-14.5) Platelet Count 361 x10^3/uL (140-400) Neutrophils (%) (Auto) 79 % (31-73) H Lymphocytes (%) (Auto) 15 % (24-48) L Monocytes (%) (Auto) 4 % (0-9) Eosinophils (%) (Auto) 1 % (0-3) Basophils (%) (Auto) 1 % (0-3) Neutrophils # (Auto) 6.4 x10^3uL (1.8-7.7) Lymphocytes # (Auto) 1.2 x10^3/uL (1.0-4.8) Monocytes # (Auto) 0.4 x10^3/uL (0.0-1.1) Eosinophils # (Auto) 0.1 x10^3/uL (0.0-0.7) Basophils # (Auto) 0.0 x10^3/uL (0.0-0.2) Sodium Level 139 mmol/L (136-145) Potassium Level 2.7 mmol/L (3.5-5.1) *L Chloride Level 100 mmol/L (98-107) Carbon Dioxide Level 23 mmol/L (21-32) Anion Gap 16 (6-14) H Blood Urea Nitrogen 9 mg/dL (7-20) Creatinine 0.7 mg/dL (0.6-1.0) Estimated GFR (Cockcroft-Gault) 94.2 BUN/Creatinine Ratio 13 (6-20) Glucose Level 134 mg/dL (70-99) H Calcium Level 9.0 mg/dL (8.5-10.1) Magnesium Level 1.2 mg/dL (1.8-2.4) L Total Bilirubin 0.9 mg/dL (0.2-1.0) Aspartate Amino Transferase (AST) 51 U/L (15-37) H Alanine Aminotransferase (ALT) 57 U/L (14-59) Alkaline Phosphatase 58 U/L (46-116) Total Protein 7.5 g/dL (6.4-8.2) Albumin 3.8 g/dL (3.4-5.0) Albumin/Globulin Ratio 1.0 (1.0-1.7) Lipase 146 U/L (73-393) Laboratory Tests 04/27/19 15:35 Laboratory Tests 04/27/19 15:35 EKG EKG [] Radiology/Procedures Radiology/Procedures [PROCEDURE: ACUTE ABDOMEN SERIES Acute abdominal series obtained of the chest 04/27/2019 INDICATION: Vomiting, abdominal pain for one day COMPARISON: CT abdomen/pelvis May 05, 2018 TECHNIQUE: Single view of the chest, upright view of abdomen and supine view of abdomen are provided. FINDINGS: The cardiomediastinal silhouette is within normal limits. Cholecystectomy clips are identified in the right upper quadrant. There are no pleural effusions. There is no pulmonary vascular congestion. There is no pneumothorax. The lungs are clear. No significant osseous abnormality is identified. Paucity of small bowel gas limits evaluation. There is no free intraperitoneal air. No dilated loops of large bowel. Phleboliths are identified in the pelvis. No suspicious osseous abnormality. IMPRESSION: No acute cardiopulmonary process. Nonobstructive bowel gas pattern. Paucity of small bowel gas limits evaluation. ] Course & Med Decision Making Course & Med Decision Making Pertinent Labs and Imaging studies reviewed. (See chart for details) []5:20 p.m.: The patient's condition remains stable at this time. She has had no further emesis in the emergency department. Hypokalemia suspected to be related to her vomiting. She appears to have had ongoing abdominal issues, due to the numerous ER visits and CTs that she has had and I recommended she follow up with gastroenterology for further evaluation. I'll prescribe her some Bentyl, as well as some potassium to use at home. Return precautions were discussed in de tail. She does have a urology appointment scheduled for tomorrow. Dragon Disclaimer Dragon Disclaimer This electronic medical record was generated, in whole or in part, using a voice recognition dictation system. Departure Departure Impression: Primary Impression: Abdominal pain Additional Impressions: Nausea & vomiting Hypokalemia Hypomagnesemia Disposition: 01 HOME, SELF-CARE Condition: STABLE Referrals: OVIDIO DIAMOND (PCP) JENNIFER NUNEZ MD Patient Instructions: Abdominal Pain, Hypokalemia Scripts Ondansetron Hcl (ZOFRAN) 4 Mg Tablet 1 TAB PO Q6HRS PRN for NAUSEA/VOMITING, #20 TAB Prov: MAGDIEL HOGAN MD 04/27/19 Potassium Chloride (K-Tab ER) 20 Meq Tablet.er 20 MEQ PO DAILY for 10 Days, #10 TAB.SR Prov: MAGDIEL HOGAN MD 04/27/19 Dicyclomine Hcl (DICYCLOMINE HCL) 20 Mg Tablet 1 TAB PO QID, #20 TAB Prov: MAGDIEL HOGAN MD 04/27/19 Problem Qualifiers MAGDIEL HOGAN MD Apr 27, 2019 14:38
[2019-04-27] MEDS ORDERED: diphenhydrAMINE 50 MG/ML VIAL IVP ONE (14:45)
[2019-04-27] MEDS ORDERED: PROCHLORPERAZINE 10 MG/2 ML VIAL. IV ONE (14:45)
[2019-04-27 14:51] LABS: BILIRUBIN,URINE SMALL (NEG); CLARITY,URINE CLEAR; COLOR,URINE YELLOW; NITRITE,URINE NEGATIVE (NEG); PH,URINE 5.5; PROTEIN,URINE NEGATIVE (NEG-TRACE); UROBILINOGEN,URINE 0.2 mg/dL (0.2 mg/dL)
[2019-04-27 14:59] LABS: RBC,URINE RARE /HPF (0-2)
[2019-04-27 15:00] LABS: BACTERIA,URINE FEW /HPF (0-FEW); SQUAMOUS EPITHELIAL CELL,UR MANY /LPF
[2019-04-27 15:42] LABS: BASO % 1 % (0-3); EOS # 0.1 x10^3/uL (0.0-0.7); EOS % 1 % (0-3); HEMOGLOBIN 13.3 g/dL (12.0-15.5); LYMPH # 1.2 x10^3/uL (1.0-4.8); LYMPH % 15 % (24-48); MEAN CORPUSCULAR HEMOGLOBIN 32 pg (25-35); MEAN CORPUSCULAR HGB CONC 35 g/dL (31-37); MEAN CORPUSCULAR VOLUME 90 fL (79-100); MONO # 0.4 x10^3/uL (0.0-1.1); MONO % 4 % (0-9); NEUT # 6.4 x10^3uL (1.8-7.7); NEUT % 79 % (31-73); PLATELET COUNT 361 x10^3/uL (140-400); RED BLOOD COUNT 4.24 x10^6/uL (3.50-5.40); RED CELL DISTRIBUTION WIDTH 13.6 % (11.5-14.5); WHITE BLOOD COUNT 8.1 x10^3/uL (4.0-11.0)
[2019-04-27 16:15] LABS: ALBUMIN 3.8 g/dL (3.4-5.0); CREATININE 0.7 mg/dL (0.6-1.0); GFR 94.2; TOTAL BILIRUBIN 0.9 mg/dL (0.2-1.0); TOTAL PROTEIN 7.5 g/dL (6.4-8.2)
[2019-04-27 16:20] LABS: POTASSIUM 2.7 mmol/L (3.5-5.1)
[2019-04-27] MEDS ORDERED: POTASSIUM CHLORIDE 20 MEQ TABLET.ER. PO ONE (16:30)
[2019-04-27] MEDS: POTASSIUM CHLORIDE 10MEQ 100 ML IV SCH ×2 (16:47→18:09)
--- NOTE | 2019-04-27 17:16 | RAD ---
Acute abdominal series obtained of the chest 04/27/2019 INDICATION: Vomiting, abdominal pain for one day COMPARISON: CT abdomen/pelvis May 05, 2018 TECHNIQUE: Single view of the chest, upright view of abdomen and supine view of abdomen are provided. FINDINGS: The cardiomediastinal silhouette is within normal limits. Cholecystectomy clips are identified in the right upper quadrant. There are no pleural effusions. There is no pulmonary vascular congestion. There is no pneumothorax. The lungs are clear. No significant osseous abnormality is identified. Paucity of small bowel gas limits evaluation. There is no free intraperitoneal air. No dilated loops of large bowel. Phleboliths are identified in the pelvis. No suspicious osseous abnormality. IMPRESSION: No acute cardiopulmonary process. Nonobstructive bowel gas pattern. Paucity of small bowel gas limits evaluation. Electronically signed by: Rajani Lynn MD (04/27/2019 5:13 PM) [id number]
[2019-04-27] MEDS ORDERED: POTA20TA84 PO (17:31)
[2019-04-27] MEDS ORDERED: DICY20TA3 PO (17:31)
[2019-04-27] MEDS ORDERED: ONDA4TAB7 PO (17:31)
[2019-04-27] MEDS ORDERED: MAGNESIUM SULFATE 2GM 50 ML IV ONE (18:00)
[2019-04-27] MEDS ORDERED: MAGNESIUM OXIDE 400 MG TABLET PO ONE (19:45)
[2019-04-27] MEDS ORDERED: ONDANSETRON ODT 4 MG TAB.RAPDIS. PO ONE (19:45)
== END 2019-04-27 19:25 | disposition home or self-care (01) ==
LOC: ER 14:10
DX: R10.84 Generalized abdominal pain (principal); R11.2 Nausea with vomiting, unspecified; E87.6 Hypokalemia; E83.42 Hypomagnesemia; I48.91 Unspecified atrial fibrillation; E11.9 Type 2 diabetes mellitus without complications; K21.9 Gastro-esophageal reflux disease without esophagitis; Z87.442 Personal history of urinary calculi; K58.9 Irritable bowel syndrome, unspecified; Z90.49 Acquired absence of other specified parts of digestive tract; Z90.710 Acquired absence of both cervix and uterus; Z88.5 Allergy status to narcotic agent; Z88.8 Allergy status to other drugs, medicaments and biological substances
CPT/HCPCS: 36415; 74022; 80053; 81001; 81025; 83690; 83735; 85025; 87086; 96361; 96365; 96366; 96368; 96375; 99285; J0780; J1200; J2060; J3475; J3480; J7030; Q0162

== ENCOUNTER 2019-05-18 13:19 | Emergency (ER) | payer OTHER ==
[~2019-05-18] VITALS: Ht 167.6 cm; Wt 93.0 kg
[~2019-05-18 13:19] MED LIST changes: +DICY20TA3 PO; +POTA20TA84 PO
[2019-05-18] MEDS ORDERED: FAMOTIDINE 20 MG/2 ML VIAL IVP ONE (14:00)
[2019-05-18] MEDS ORDERED: ONDANSETRON PF 4 MG/2 ML VIAL. IV ONE (14:00)
[2019-05-18] MEDS ORDERED: IV NORMAL SALINE 1000ML BAG 1,000 ML IV ONE (14:00)
[2019-05-18 14:27] LABS: BILIRUBIN,URINE MODERATE (NEG); CLARITY,URINE CLEAR; COLOR,URINE YELLOW; NITRITE,URINE NEGATIVE (NEG); PH,URINE 5.5; PROTEIN,URINE 30 mg/dL (NEG-TRACE); UROBILINOGEN,URINE 0.2 mg/dL (0.2 mg/dL)
[2019-05-18 14:43] LABS: AMPHETAMINE/METHAMPHETAMINE POS (NEG); BARBITURATES NEG (NEG); BENZODIAZEPINES NEG (NEG); CANNABINOIDS NEG (NEG); COCAINE NEG (NEG); METHADONE NEG (NEG); OPIATES POS (NEG); PHENCYCLIDINE NEG (NEG)
[2019-05-18 14:46] LABS: BACTERIA,URINE MOD /HPF (0-FEW); RBC,URINE 0 /HPF (0-2); SQUAMOUS EPITHELIAL CELL,UR MANY /LPF
[2019-05-18 15:05] LABS: BASO % 1 % (0-3); EOS # 0.1 x10^3/uL (0.0-0.7); EOS % 2 % (0-3); HEMATOCRIT 41.9 % (36.0-47.0); HEMOGLOBIN 14.4 g/dL (12.0-15.5); LYMPH # 1.6 x10^3/uL (1.0-4.8); LYMPH % 24 % (24-48); MEAN CORPUSCULAR HEMOGLOBIN 32 pg (25-35); MEAN CORPUSCULAR HGB CONC 34 g/dL (31-37); MEAN CORPUSCULAR VOLUME 92 fL (79-100); MONO # 0.3 x10^3/uL (0.0-1.1); MONO % 5 % (0-9); NEUT # 4.6 x10^3/uL (1.8-7.7); NEUT % 69 % (31-73); PLATELET COUNT 400 x10^3/uL (140-400); RED BLOOD COUNT 4.56 x10^6/uL (3.50-5.40); RED CELL DISTRIBUTION WIDTH 14.1 % (11.5-14.5); WHITE BLOOD COUNT 6.6 x10^3/uL (4.0-11.0)
[2019-05-18 15:24] LABS: ALBUMIN 3.9 g/dL (3.4-5.0); ALBUMIN/GLOBULIN RATIO 0.9 (1.0-1.7); CALCIUM 9.2 mg/dL (8.5-10.1); CREATININE 0.6 mg/dL (0.6-1.0); GFR 112.5; MAGNESIUM 1.3 mg/dL (1.8-2.4); TOTAL BILIRUBIN 0.9 mg/dL (0.2-1.0); TOTAL PROTEIN 8.2 g/dL (6.4-8.2)
[2019-05-18 15:27] LABS: POTASSIUM 2.9 mmol/L (3.5-5.1)
[2019-05-18] MEDS ORDERED: POTASSIUM CHLORIDE 20 MEQ TABLET.ER. PO ONE (16:00)
--- NOTE | 2019-05-18 16:26 | RAD ---
Examination: Ultrasound abdomen complete HISTORY: History of abdominal pain COMPARISON: None available. Findings: The visualized pancreas grossly appears unremarkable. The visualized aorta, IVC within normal limits of dimension. The liver length measures 21.9 cm. There is diffuse increased echogenicity identified throughout the liver likely hepatic steatosis. The common bile duct measures 6 mm in transverse dimension. The right kidney measures 12.5 x 6.1 x 4.7 cm. The left kidney measures 13.4 x 5.5 x 6.0 cm. The gallbladder is not identified likely prior cholecystectomy. Impression: 1. Hepatomegaly with hepatic steatosis. 2. Changes of cholecystectomy. Electronically signed by: Hardeep Altman MD (05/18/2019 4:23 PM) [facility]
[2019-05-18 17:00] VITALS: BP 128/74
[2019-05-18] MEDS ORDERED: POTA20TA82 PO (17:03)
[2019-05-18] MEDS ORDERED: ONDA4TAB12 PO (17:03)
--- NOTE | 2019-05-18 17:03 | PHYS DOC ---
Past Medical History Past Medical History: A-Fib, Anemia, Depression, Diabetes-Type II, GERD, Kidney Stone, Other Additional Past Medical Histor: multiple spontaneous abortions, ulcerative colitis, IBS; bowel obstruction Past Surgical History: Cholecystectomy, , Hysterectomy, Other Additional Past Surgical Histo: D&C, lithotripsy Alcohol Use: Occasionally Drug Use: None Adult General Chief Complaint Chief Complaint: ABDOMINAL PAIN HPI HPI Patient is a 39 year old female with history of diabetes type 2 among other illnesses or presents to the ED today complaining of nausea, vomiting, diarrhea, abdominal pain, symptoms began almost 2 months. Patient states symptoms began after she was started on Ozempic for diabetes. She states she stopped taking the medication one and a half weeks ago. Patient reports she was just discharged from [facility] 2 days ago for the same symptoms. She states they did lab work which showed her potassium was low as well as CTs which were negative. She states her symptoms of not going away. She also reports she's been losing weight due to her symptoms. Review of Systems Review of Systems Constitutional: Denies fever or chills [] Eyes: Denies change in visual acuity, redness, or eye pain [] HENT: Denies nasal congestion or sore throat [] Respiratory: Denies cough or shortness of breath [] Cardiovascular: No additional information not addressed in HPI [] GI: Reports abdominal pain, nausea, vomiting, diarrhea, denies any hematemesis or melena. : Denies dysuria or hematuria [] Musculoskeletal: Denies back pain or joint pain [] Integument: Denies rash or skin lesions [] Neurologic: Denies headache, focal weakness or sensory changes [] All other systems were reviewed and found to be within normal limits, except as documented in this note. Current Medications Current Medications Current Medications Medications (Trade) Dose Ordered Sig/Chandler Start Time Stop Time Status Last Admin Dose Admin Famotidine (Pepcid Vial) 20 mg 1X ONCE 05/18/19 14:00 05/18/19 14:01 DC 05/18/19 14:11 20 MG Lorazepam (Ativan Inj) 1 mg 1X ONCE 05/18/19 16:00 05/18/19 16:01 DC 05/18/19 15:29 1 MG Ondansetron HCl (Zofran) 4 mg 1X ONCE 05/18/19 14:00 05/18/19 14:01 DC 05/18/19 14:11 4 MG Potassium Chloride (Klor-Con) 40 meq 1X ONCE 05/18/19 16:00 05/18/19 16:01 DC 05/18/19 16:07 40 MEQ Sodium Chloride 1,000 ml @ 1,000 mls/hr 1X ONCE 05/18/19 14:00 05/18/19 14:59 DC 05/18/19 14:11 1,000 MLS/HR Allergies Allergies Allergies Coded Allergies Type Severity Reaction Last Updated Verified morphine Allergy Intermediate TOLERATES DILAUDID 07/16/18 Yes phentermine Allergy Intermediate ANGRY 07/16/18 Yes butorphanol Adverse Reaction Severe "i get very angry" 07/16/18 Yes Physical Exam Physical Exam Constitutional: Well developed, well nourished, no acute distress, non-toxic appearance. [] HENT: Normocephalic, atraumatic, bilateral external ears normal, oropharynx moist, no oral exudates, nose normal. [] Eyes: PERRLA, EOMI, conjunctiva normal, no discharge. [] Neck: Normal range of motion, no tenderness, supple, no stridor. [] Cardiovascular:Heart rate regular rhythm, no murmur [] Lungs & Thorax: Bilateral breath sounds clear to auscultation [] Abdomen: Bowel sounds normal, soft, tenderness diffusely throughout the abdomen, no point tenderness to the right lower or joint or right upper quadrant, no masses, no pulsatile masses. [] Skin: Warm, dry, no erythema, no rash. [] Back: No tenderness, no CVA tenderness. [] Extremities: No tenderness, no cyanosis, no clubbing, ROM intact, no edema. [] Neurologic: Alert and oriented X 3, normal motor function, normal sensory function, no focal deficits noted. [] Psychologic: Flat affect, depressed mood Current Patient Data Vital Signs Vital Signs Date Time Temp Pulse Resp B/P (MAP) Pulse Ox O2 Delivery O2 Flow Rate FiO2 05/18/19 14:30 106 16 146/85 (105) 97 Room Air 05/18/19 13:51 98.7 98.7 Lab Values Laboratory Tests Test 05/18/19 13:34 05/18/19 14:50 Urine Collection Type Unknown Urine Color Yellow Urine Clarity Clear Urine pH 5.5 Urine Specific [place] 1.025 Urine Protein 30 mg/dL (NEG-TRACE) Urine Glucose (UA) Negative mg/dL (NEG) Urine Ketones (Stick) >=80 mg/dL (NEG) Urine Blood Negative (NEG) Urine Nitrite Negative (NEG) Urine Bilirubin Moderate (NEG) Urine Urobilinogen Dipstick 0.2 mg/dL (0.2 mg/dL) Urine Leukocyte Esterase Negative (NEG) Urine RBC 0 /HPF (0-2) Urine WBC 1-4 /HPF (0-4) Urine Squamous Epithelial Cells Many /LPF Urine Bacteria Mod /HPF (0-FEW) Urine Mucus Marked /LPF Urine Opiates Screen Pos (NEG) Urine Methadone Screen Neg (NEG) Urine Barbiturates Neg (NEG) Urine Phencyclidine Screen Neg (NEG) Urine Amphetamine/Methamphetamine Pos (NEG) Urine Benzodiazepines Screen Neg (NEG) Urine Cocaine Screen Neg (NEG) Urine Cannabinoids Screen Neg (NEG) Urine Ethyl Alcohol Neg (NEG) White Blood Count 6.6 x10^3/uL (4.0-11.0) Red Blood Count 4.56 x10^6/uL (3.50-5.40) Hemoglobin 14.4 g/dL (12.0-15.5) Hematocrit 41.9 % (36.0-47.0) Mean Corpuscular Volume 92 fL (79-100) Mean Corpuscular Hemoglobin 32 pg (25-35) Mean Corpuscular Hemoglobin Concent 34 g/dL (31-37) Red Cell Distribution Width 14.1 % (11.5-14.5) Platelet Count 400 x10^3/uL (140-400) Neutrophils (%) (Auto) 69 % (31-73) Lymphocytes (%) (Auto) 24 % (24-48) Monocytes (%) (Auto) 5 % (0-9) Eosinophils (%) (Auto) 2 % (0-3) Basophils (%) (Auto) 1 % (0-3) Neutrophils # (Auto) 4.6 x10^3/uL (1.8-7.7) Lymphocytes # (Auto) 1.6 x10^3/uL (1.0-4.8) Monocytes # (Auto) 0.3 x10^3/uL (0.0-1.1) Eosinophils # (Auto) 0.1 x10^3/uL (0.0-0.7) Basophils # (Auto) 0.0 x10^3/uL (0.0-0.2) Sodium Level 139 mmol/L (136-145) Potassium Level 2.9 mmol/L (3.5-5.1) *L Chloride Level 99 mmol/L (98-107) Carbon Dioxide Level 25 mmol/L (21-32) Anion Gap 15 (6-14) H Blood Urea Nitrogen 5 mg/dL (7-20) L Creatinine 0.6 mg/dL (0.6-1.0) Estimated GFR (Cockcroft-Gault) 112.5 BUN/Creatinine Ratio 8 (6-20) Glucose Level 93 mg/dL (70-99) Calcium Level 9.2 mg/dL (8.5-10.1) Magnesium Level 1.3 mg/dL (1.8-2.4) L Total Bilirubin 0.9 mg/dL (0.2-1.0) Aspartate Amino Transferase (AST) 27 U/L (15-37) Alanine Aminotransferase (ALT) 40 U/L (14-59) Alkaline Phosphatase 96 U/L (46-116) Total Protein 8.2 g/dL (6.4-8.2) Albumin 3.9 g/dL (3.4-5.0) Albumin/Globulin Ratio 0.9 (1.0-1.7) L Lipase 71 U/L (73-393) L Ethyl Alcohol Level < 10 mg/dL (0-10) Laboratory Tests 05/18/19 14:50 Laboratory Tests 05/18/19 14:50 EKG EKG [] Radiology/Procedures Radiology/Procedures []PROCEDURE: ABDOMEN COMPLETE Examination: Ultrasound abdomen complete HISTORY: History of abdominal pain COMPARISON: None available. Findings: The visualized pancreas grossly appears unremarkable. The visualized aorta, IVC within normal limits of dimension. The liver length measures 21.9 cm. There is diffuse increased echogenicity identified throughout the liver likely hepatic steatosis. The common bile duct measures 6 mm in transverse dimension. The right kidney measures 12.5 x 6.1 x 4.7 cm. The left kidney measures 13.4 x 5.5 x 6.0 cm. The gallbladder is not identified likely prior cholecystectomy. Impression: 1. Hepatomegaly with hepatic steatosis. 2. Changes of cholecystectomy. Electronically signed by: Hardeep Altman MD (05/18/2019 4:23 PM) [facility] DICTATED and SIGNED BY: HARDEEP ALTMAN MD DATE: 05/18/191622 Course & Med Decision Making Course & Med Decision Making Pertinent Labs and Imaging studies reviewed. (See chart for details) This is a 39-year-old female patient presenting to the ED today with multiple complaints in the ED including abdominal pain, nausea, vomiting, diarrhea, symptoms have been going on for almost 2 months. Patient was discharged from [facility] 2 days ago for the same complaint. Patient also seen in our ED a couple weeks ago for abdominal pain and appeared to be discharged with instructions to follow-up with GI. Documentation from her previous visit shows patient has had 19 CT scans in the last 3 years. CBC with a normal WBC, CMP with potassium of 2.9, patient was given oral potassium replacement in the ED. Given IV fluids. Abdominal ultrasound is negative for any acute findings. Patient also given famotidine. Informed we will not give her any narcotics in the emergency room. UDS noted for methamphetamine use and opiates I spoke with the nurse who took care of patient at [facility]. She noted patient received quite a bit of Dilaudid and fentanyl while inpatient at [facility]. Patient was discharged to home. Instructed to follow up with GI which I provided. Even dicyclomine and Zofran prescriptions and Potassium. Dragon Disclaimer Dragon Disclaimer This electronic medical record was generated, in whole or in part, using a voice recognition dictation system. Departure Departure Impression: Primary Impression: Abdominal pain Additional Impressions: Nausea and vomiting Diarrhea Methamphetamine use Opiate use Disposition: 01 HOME, SELF-CARE Condition: STABLE Referrals: OVIDIO DIAMOND (PCP) follow up with your doctor in the course of this week MITUL LOZOYA MD call him tomorrow and follow up Patient Instructions: Abdominal Pain (Nonspecific) Additional Instructions: You were evaluated in the emergency room, we highly recommend you follow-up with the supervisor sawmill we provided as soon as you can Scripts Ondansetron (ONDANSETRON ODT) 4 Mg Tab.rapdis 1 TAB PO PRN Q6-8HRS, #16 TAB Prov: MYCHAL THAPA METAL BONDER 05/18/19 Potassium Chloride (POTASSIUM CHLORIDE) 20 Meq Tablet.er 20 MEQ PO DAILY, #5 TAB.SR Prov: MYCHAL THAPA METAL BONDER 05/18/19 Problem Qualifiers Primary Impression: Abdominal pain Abdominal location: unspecified location Qualified Codes: R10.9 - Unspecified abdominal pain Additional Impressions: Nausea and vomiting Vomiting type: unspecified Vomiting Intractability: unspecified Qualified Codes: R11.2 - Nausea with vomiting, unspecified Diarrhea Diarrhea type: unspecified type Qualified Codes: R19.7 - Diarrhea, unspecified KOKOFINAValentinMYCHAL METAL BONDER May 18, 2019 17:03
== END 2019-05-18 17:27 | disposition home or self-care (01) ==
LOC: ER 13:19
DX: R11.2 Nausea with vomiting, unspecified (principal); R19.7 Diarrhea, unspecified; R10.84 Generalized abdominal pain; F15.90 Other stimulant use, unspecified, uncomplicated; F11.90 Opioid use, unspecified, uncomplicated; I48.91 Unspecified atrial fibrillation; E11.9 Type 2 diabetes mellitus without complications; K21.9 Gastro-esophageal reflux disease without esophagitis; Z87.442 Personal history of urinary calculi; K58.9 Irritable bowel syndrome, unspecified; Z90.49 Acquired absence of other specified parts of digestive tract; Z90.710 Acquired absence of both cervix and uterus; Z88.5 Allergy status to narcotic agent; Z88.8 Allergy status to other drugs, medicaments and biological substances
CPT/HCPCS: 36415; 76700; 80053; 80307; 81001; 83690; 83735; 85025; 96361; 96374; 96375; 99285; G0480; J2060; J2405; J3490; J7030

== ENCOUNTER 2019-05-22 20:52 | Emergency (ER) | payer OTHER ==
[~2019-05-22] VITALS: Ht 167.6 cm; Wt 95.3 kg
[~2019-05-22 20:52] MED LIST changes: +ONDA4TAB12 PO; +POTA20TA82 PO
[2019-05-22 21:00] VITALS: BP 164/113
[2019-05-22 22:00] LABS: BASO % 0 % (0-3); EOS % 0 % (0-3); HEMATOCRIT 40.7 % (36.0-47.0); HEMOGLOBIN 14.1 g/dL (12.0-15.5); LYMPH # 2.2 x10^3/uL (1.0-4.8); LYMPH % 25 % (24-48); MEAN CORPUSCULAR HEMOGLOBIN 32 pg (25-35); MEAN CORPUSCULAR HGB CONC 35 g/dL (31-37); MEAN CORPUSCULAR VOLUME 92 fL (79-100); MONO # 0.5 x10^3/uL (0.0-1.1); MONO % 6 % (0-9); NEUT # 5.9 x10^3/uL (1.8-7.7); NEUT % 68 % (31-73); PLATELET COUNT 445 x10^3/uL (140-400); RED BLOOD COUNT 4.43 x10^6/uL (3.50-5.40); RED CELL DISTRIBUTION WIDTH 14.2 % (11.5-14.5); WHITE BLOOD COUNT 8.6 x10^3/uL (4.0-11.0)
[2019-05-22] MEDS ORDERED: diphenhydrAMINE 50 MG/ML VIAL IVP ONE (22:00)
[2019-05-22] MEDS ORDERED: PROPOFOL 100 ML IV PRN (22:00)
[2019-05-22] MEDS ORDERED: FAMOTIDINE 20 MG/2 ML VIAL IVP ONE (22:00)
[2019-05-22] MEDS ORDERED: fentaNYL PF VIAL 100 MCG/2 ML VIAL IV PRN (22:00)
[2019-05-22] MEDS ORDERED: METOCLOPRAMIDE HCL 10 MG/2 ML VIAL. IV ONE (22:00)
[2019-05-22] MEDS ORDERED: IV NORMAL SALINE 1000ML BAG 1,000 ML IV SCH (22:00)
[2019-05-22 22:03] LABS: BILIRUBIN,URINE NEGATIVE (NEG); CLARITY,URINE CLEAR; COLOR,URINE YELLOW; NITRITE,URINE NEGATIVE (NEG); PROTEIN,URINE NEGATIVE (NEG-TRACE); UROBILINOGEN,URINE 0.2 mg/dL (0.2 mg/dL)
[2019-05-22 22:08] LABS: CALCIUM 9.9 mg/dL (8.5-10.1); CREATININE 0.6 mg/dL (0.6-1.0); GFR 112.5; POTASSIUM 3.7 mmol/L (3.5-5.1)
[2019-05-22 22:08] LABS: AMPHETAMINE/METHAMPHETAMINE POS (NEG); BARBITURATES NEG (NEG); BENZODIAZEPINES NEG (NEG); CANNABINOIDS NEG (NEG); COCAINE NEG (NEG); METHADONE NEG (NEG); OPIATES NEG (NEG); PHENCYCLIDINE NEG (NEG)
[2019-05-22 22:14] LABS: BACTERIA,URINE MODERATE /HPF (0-FEW); RBC,URINE 0 /HPF (0-2); SQUAMOUS EPITHELIAL CELL,UR FEW /LPF; WBC,URINE OCC /HPF (0-4)
[2019-05-22 22:14] LABS: TOTAL BILIRUBIN 0.9 mg/dL (0.2-1.0); TOTAL PROTEIN 8.1 g/dL (6.4-8.2)
[2019-05-22] MEDS ORDERED: PROC10TA57 PO (23:03)
--- NOTE | 2019-05-22 23:03 | PHYS DOC ---
Past Medical History Past Medical History: A-Fib, Anemia, Depression, Diabetes-Type II, GERD, Kidney Stone, Other Additional Past Medical Histor: multiple spontaneous abortions, ulcerative colitis, IBS; bowel obstruction Past Surgical History: Cholecystectomy, , Hysterectomy, Other Additional Past Surgical Histo: D&C, lithotripsy Alcohol Use: Occasionally Drug Use: None Adult General Chief Complaint Chief Complaint: NAUSEA/VOMITING/DIARRHA HPI HPI Patient is a 39-year-old female who presents with report of continued nausea with vomiting and diarrhea and some abdominal cramping. Patient was recently discharged from [facility] after being admitted for the same complaints. Patient reportedly had low potassium and she has been taking potassium since discharge. She states that they had discharged her with Percocets as well as Zofran. She states the Percocet made her nauseated so she flushed them down the toilet and she states that the Zofran makes her more nauseated as well. Patient states that she is just not been able to keep anything down. She has been scheduled with Dr. Valladares for upper and lower endoscopy but she states that she is just not able to wait until then.[] Review of Systems Review of Systems Constitutional: Denies fever or chills [] Respiratory: Denies cough or shortness of breath [] Cardiovascular: No additional information not addressed in HPI [] GI: Complains of abdominal cramping with vomiting and diarrhea [] Integument: Denies rash or skin lesions [] Neurologic: Denies headache, focal weakness or sensory changes [] All other systems were reviewed and found to be within normal limits, except as documented in this note. Current Medications Current Medications Current Medications Medications (Trade) Dose Ordered Sig/Chandler Start Time Stop Time Status Last Admin Dose Admin Diphenhydramine HCl (Benadryl) 25 mg 1X ONCE 05/22/19 22:00 05/22/19 22:01 DC 05/22/19 22:08 25 MG Famotidine (Pepcid Vial) 20 mg 1X ONCE 05/22/19 22:00 05/22/19 22:01 DC 05/22/19 22:09 20 MG Fentanyl Citrate (Fentanyl 2ml Vial) 25 mcg PRN Q15MIN PRN 05/22/19 22:00 05/23/19 21:59 05/22/19 22:09 25 MCG Metoclopramide HCl (Reglan Vial) 10 mg 1X ONCE 05/22/19 22:00 05/22/19 22:01 DC 05/22/19 22:08 10 MG Propofol 100 ml @ 0 mls/hr CONT PRN 05/22/19 22:00 UNV Sodium Chloride 1,000 ml @ 1,000 mls/hr Q1H 05/22/19 22:00 05/22/19 22:59 DC 05/22/19 22:07 1,000 MLS/HR Allergies Allergies Allergies Coded Allergies Type Severity Reaction Last Updated Verified morphine Allergy Intermediate TOLERATES DILAUDID 07/16/18 Yes phentermine Allergy Intermediate ANGRY 07/16/18 Yes butorphanol Adverse Reaction Severe "i get very angry" 07/16/18 Yes Physical Exam Physical Exam Constitutional: Well developed, well nourished, no acute distress, non-toxic appearance. [] HENT: Normocephalic, atraumatic, bilateral external ears normal, oropharynx moist, no oral exudates, nose normal. [] Eyes: PERRLA, EOMI, conjunctiva normal, no discharge. [] Neck: Normal range of motion, no tenderness, supple, no stridor. [] Cardiovascular: Regular rate and rhythm[] Lungs & Thorax: Bilateral breath sounds clear to auscultation [] Abdomen: Bowel sounds normal, soft with mild diffuse tenderness. [] Skin: Warm, dry, no erythema, no rash. [] Extremities: No tenderness, no cyanosis, no clubbing, ROM intact, no edema. [] Neurologic: Alert and oriented X 3, no focal deficits noted. [] Current Patient Data Vital Signs Vital Signs Date Time Temp Pulse Resp B/P (MAP) Pulse Ox O2 Delivery O2 Flow Rate FiO2 05/22/19 22:09 16 100 Room Air 05/22/19 21:00 98.1 99 164/113 (130) 98.1 Lab Values Laboratory Tests Test 05/22/19 21:20 05/22/19 21:35 Urine Collection Type Unknown Urine Color Yellow Urine Clarity Clear Urine pH 6.0 Urine Specific [place] 1.010 Urine Protein Negative mg/dL (NEG-TRACE) Urine Glucose (UA) Negative mg/dL (NEG) Urine Ketones (Stick) 40 mg/dL (NEG) Urine Blood Negative (NEG) Urine Nitrite Negative (NEG) Urine Bilirubin Negative (NEG) Urine Urobilinogen Dipstick 0.2 mg/dL (0.2 mg/dL) Urine Leukocyte Esterase Negative (NEG) Urine RBC 0 /HPF (0-2) Urine WBC Occ /HPF (0-4) Urine Squamous Epithelial Cells Few /LPF Urine Bacteria Moderate /HPF (0-FEW) Urine Mucus Mod /LPF Urine Opiates Screen Neg (NEG) Urine Methadone Screen Neg (NEG) Urine Barbiturates Neg (NEG) Urine Phencyclidine Screen Neg (NEG) Urine Amphetamine/Methamphetamine Pos (NEG) Urine Benzodiazepines Screen Neg (NEG) Urine Cocaine Screen Neg (NEG) Urine Cannabinoids Screen Neg (NEG) Urine Ethyl Alcohol Neg (NEG) White Blood Count 8.6 x10^3/uL (4.0-11.0) Red Blood Count 4.43 x10^6/uL (3.50-5.40) Hemoglobin 14.1 g/dL (12.0-15.5) Hematocrit 40.7 % (36.0-47.0) Mean Corpuscular Volume 92 fL (79-100) Mean Corpuscular Hemoglobin 32 pg (25-35) Mean Corpuscular Hemoglobin Concent 35 g/dL (31-37) Red Cell Distribution Width 14.2 % (11.5-14.5) Platelet Count 445 x10^3/uL (140-400) H Neutrophils (%) (Auto) 68 % (31-73) Lymphocytes (%) (Auto) 25 % (24-48) Monocytes (%) (Auto) 6 % (0-9) Eosinophils (%) (Auto) 0 % (0-3) Basophils (%) (Auto) 0 % (0-3) Neutrophils # (Auto) 5.9 x10^3/uL (1.8-7.7) Lymphocytes # (Auto) 2.2 x10^3/uL (1.0-4.8) Monocytes # (Auto) 0.5 x10^3/uL (0.0-1.1) Eosinophils # (Auto) 0.0 x10^3/uL (0.0-0.7) Basophils # (Auto) 0.0 x10^3/uL (0.0-0.2) Sodium Level 137 mmol/L (136-145) Potassium Level 3.7 mmol/L (3.5-5.1) Chloride Level 96 mmol/L (98-107) L Carbon Dioxide Level 29 mmol/L (21-32) Anion Gap 12 (6-14) Blood Urea Nitrogen 7 mg/dL (7-20) Creatinine 0.6 mg/dL (0.6-1.0) Estimated GFR (Cockcroft-Gault) 112.5 BUN/Creatinine Ratio 12 (6-20) Glucose Level 125 mg/dL (70-99) H Calcium Level 9.9 mg/dL (8.5-10.1) Total Bilirubin 0.9 mg/dL (0.2-1.0) Aspartate Amino Transferase (AST) 28 U/L (15-37) Alanine Aminotransferase (ALT) 31 U/L (14-59) Alkaline Phosphatase 83 U/L (46-116) Total Protein 8.1 g/dL (6.4-8.2) Albumin 4.0 g/dL (3.4-5.0) Albumin/Globulin Ratio 1.0 (1.0-1.7) Lipase 139 U/L (73-393) Laboratory Tests 05/22/19 21:35 Laboratory Tests 05/22/19 21:35 EKG EKG [] Radiology/Procedures Radiology/Procedures [] Course & Med Decision Making Course & Med Decision Making Pertinent Labs and Imaging studies reviewed. (See chart for details) Patient moved to room upon arrival was evaluated by your medical staff after which an IV was established and blood work was drawn. Patient given IV fluids as well as medications for management of nausea. Upon completion of workup, fi ndings were reviewed with patient and patient does indicate that she has improvement in symptoms at this time. I did discuss option of admission overnight for further management of patient's symptoms; however, patient is indicating that she would like to be discharged home and she will call her doct or in the morning. Patient will be discharged home with Compazine, which patient reports had worked better for her nausea. Dragon Disclaimer Dragon Disclaimer This electronic medical record was generated, in whole or in part, using a voice recognition dictation system. Departure Departure Impression: Primary Impression: Nausea and vomiting Additional Impressions: Diarrhea Methamphetamine abuse Disposition: HOME, SELF-CARE Condition: STABLE Referrals: OVIDIO DIAMOND (PCP) Patient Instructions: Diarrhea, Nausea and Vomiting Scripts Prochlorperazine Maleate (Compazine) 10 Mg Tablet 10 MG PO Q8HRS PRN for NAUSEA, #12 TAB Prov: CHARLENE ARREOLA Jr. DO 05/22/19 Problem Qualifiers Primary Impression: Nausea and vomiting Vomiting type: unspecified Vomiting Intractability: non-intractable Qualified Codes: R11.2 - Nausea with vomiting, unspecified Additional Impressions: Diarrhea Diarrhea type: unspecified type Qualified Codes: R19.7 - Diarrhea, unspecified CHARLENE ARREOLA Jr. DO May 22, 2019 23:03
[2019-05-22] MEDS ORDERED: HYDROcodone/APAP 5/325MG 1 TAB TABLET PO ONE (23:30)
== END 2019-05-22 23:25 | disposition home or self-care (01) ==
LOC: ER 20:52
DX: R11.2 Nausea with vomiting, unspecified (principal); R19.7 Diarrhea, unspecified; F15.10 Other stimulant abuse, uncomplicated; R10.84 Generalized abdominal pain; I48.91 Unspecified atrial fibrillation; K21.9 Gastro-esophageal reflux disease without esophagitis; E11.9 Type 2 diabetes mellitus without complications; K58.0 Irritable bowel syndrome with diarrhea; Z87.442 Personal history of urinary calculi; Z90.49 Acquired absence of other specified parts of digestive tract; Z90.710 Acquired absence of both cervix and uterus; Z88.5 Allergy status to narcotic agent; Z88.8 Allergy status to other drugs, medicaments and biological substances
CPT/HCPCS: 36415; 80053; 80307; 81001; 83690; 85025; 87086; 96361; 96374; 96375; 99285; J1200; J2765; J3010; J3490; J7030; 87186

== ENCOUNTER → 2020-10-04 | Outpatient (CLI) | payer OTHER ==
[~2020-10-04] MED LIST changes: +CHLOROPROCAINE 3% MPF 20 ML VIAL. IJ ONE; -LEVO88TA2 PO; +LEVO88TA70 PO; +OMEP40CA45 PO; -OMEP40CA5 PO; +POTA20TA4 PO; -POTA20TA82 PO; +PROC10TA57 PO
--- NOTE | 2020-10-04 15:10 | RAD ---
Examination: US GUID NDL PLACE/ASPI/BX, DIGITAL DIAGNOSTIC RT History: Reason: RT Breast Biopsy / Spl. Instructions: / History: Comparison/Correlation: None Findings: Risks, benefits, and alternatives regarding ultrasound core biopsy of the right lower inner breast mass or masses were discussed with the patient and informed consent was obtained. Cleansing with ChloraPrep at the anticipated site of needle placement was performed. Sterile draping, sterile gel, and sterile probe cover is were utilized. Approximately 9 cc of 1 percent Nesacaine was administered subcutaneously and along the expected course of the needle tracks. Patient reported allergy reaction to lidocaine contrast. Scalpel incision was made for superomedial approach. Introducer was placed. 7 passes were made into the mass or masses present at this site. Biopsy clip marker was then placed via the introducer at the conclusion of the procedure. Patient tolerated the procedure well with no significant complication. Postprocedure mediolateral and CC digital diagnostic mammographic images were obtained. Biopsy clip marker is in place at the right lower inner breast. Scattered fibroglandular densities noted. Subcutaneous emphysema is seen corresponding with biopsy. No hematoma identified. Impression: Successful right lower inner breast biopsy of the described mass or masses present. Specimen sent to lab. Electronically signed by: Dayton Richardson MD (10/04/2020 3:07 PM) [id number]
--- NOTE | 2020-10-05 15:08 | PATHOLOGY ---
[facility] Accession Number: [id number] . 01 Material submitted: . breast - RIGHT BREAST TISSUE, 3:30, 8CMFN. Modifiers: right, 3:00 . 01 Clinical history: . RIGHT BREAST MASS . 02 Diagnosis: Breast tissue, right breast mass 3:30 needle biopsy: - Fibroadenoma. (JPM:carolee; 10/05/2020) QMS 10/05/2020 1012 Local . 02 Comment: There is no evidence of malignancy. (JPM:carolee; 10/05/2020) . 02 Electronically signed: . Faisal Talavera MD, Pathologist NPI- [id number] . 01 Gross description: . The specimen is received in formalin, labeled "Joanne Hinojosa, right breast 330 8cmFN" and consists of 5 needle cores of yellow to pink-lopez tissue measuring between 0.6 cm and 2.0 cm in length and 0.2 cm each in diameter which are entirely submitted in A1-A3. The specimen was collected at 1:57 PM on 10/04/2020 and placed in formalin at 1:59 PM. The cold ischemic time is 2 minutes and the total formalin fixation time is greater than 6 hours less than 72 hours. (SDY; 10/04/2020) SYU/SYU 10/04/2020 1734 Local . 02 Pathologist provided ICD-10: D24.1 . 02 CPT . 082530 Specimen Comment: A courtesy copy of this report has been sent to [phone], [phone] Specimen Comment: [id number], Specimen Comment: Report sent to ,DR HAYNES / DR DIAMOND Performed at: [facility] [address], [place], [place] [id number] MD Woody Arriaza MD Phone: [phone] Performed at: [address] [id number] MD Faisal Talavera MD Phone: [phone]
== END | disposition home or self-care (01) ==
LOC: US 12:48
PROVIDERS: ATTEND Surgery
DX: D24.1 Benign neoplasm of right breast (principal); R92.8 Other abnormal and inconclusive findings on diagnostic imaging of breast; E11.9 Type 2 diabetes mellitus without complications; E78.00 Pure hypercholesterolemia, unspecified; K21.9 Gastro-esophageal reflux disease without esophagitis; E03.9 Hypothyroidism, unspecified; E66.9 Obesity, unspecified; G47.30 Sleep apnea, unspecified; F41.9 Anxiety disorder, unspecified; F32.9 Major depressive disorder, single episode, unspecified; Z90.710 Acquired absence of both cervix and uterus; Z98.890 Other specified postprocedural states; Z87.891 Personal history of nicotine dependence; Z79.82 Long term (current) use of aspirin; Z79.84 Long term (current) use of oral hypoglycemic drugs; Z79.899 Other long term (current) drug therapy; Z72.89 Other problems related to lifestyle; Z88.8 Allergy status to other drugs, medicaments and biological substances
CPT/HCPCS: 19083; 77065; C1713; 19081; 76942; 88305

== ENCOUNTER 2021-03-01 08:17 | Emergency (ER) | payer OTHER ==
[~2021-03-01] VITALS: Ht 167.6 cm; Wt 68.1 kg
[~2021-03-01 08:17] MED LIST changes: -CHLOROPROCAINE 3% MPF 20 ML VIAL. IJ ONE; -CLIN150C14 PO; +CLIN150C15 PO
[2021-03-01 08:47] LABS: BILIRUBIN,URINE NEGATIVE (NEG); CLARITY,URINE CLEAR; COLOR,URINE YELLOW; NITRITE,URINE NEGATIVE (NEG); PROTEIN,URINE NEGATIVE (NEG-TRACE); UROBILINOGEN,URINE 0.2 mg/dL (0.2 mg/dL)
[2021-03-01 09:00] LABS: BACTERIA,URINE FEW /HPF (0-FEW); RBC,URINE 0 /HPF (0-2); WBC,URINE 20-40 /HPF (0-4)
[2021-03-01] MEDS ORDERED: IV NORMAL SALINE 1000ML BAG 1,000 ML IV ONE (09:15)
[2021-03-01] MEDS ORDERED: KETOROLAC 30 MG/ML VIAL. IVP ONE (09:30)
[2021-03-01] MEDS ORDERED: ONDANSETRON PF 4 MG/2 ML VIAL. IVP ONE (09:45)
[2021-03-01 10:08] LABS: BARBITURATES NEG (NEG); BENZODIAZEPINES NEG (NEG); CANNABINOIDS NEG (NEG); COCAINE NEG (NEG); METHADONE NEG (NEG); OPIATES NEG (NEG); PHENCYCLIDINE NEG (NEG)
[2021-03-01 10:09] LABS: AMPHETAMINE/METHAMPHETAMINE POS (NEG)
[2021-03-01 10:17] LABS: BASO % 1 % (0-3); EOS # 0.1 x10^3/uL (0.0-0.7); EOS % 1 % (0-3); HEMATOCRIT 36.2 % (36.0-47.0); HEMOGLOBIN 12.4 g/dL (12.0-15.5); LYMPH # 1.3 x10^3/uL (1.0-4.8); LYMPH % 22 % (24-48); MEAN CORPUSCULAR HEMOGLOBIN 34 pg (25-35); MEAN CORPUSCULAR HGB CONC 34 g/dL (31-37); MEAN CORPUSCULAR VOLUME 99 fL (79-100); MONO # 0.3 x10^3/uL (0.0-1.1); MONO % 6 % (0-9); NEUT # 4.3 x10^3/uL (1.8-7.7); NEUT % 71 % (31-73); PLATELET COUNT 329 x10^3/uL (140-400); RED BLOOD COUNT 3.67 x10^6/uL (3.50-5.40); WHITE BLOOD COUNT 6.1 x10^3/uL (4.0-11.0)
[2021-03-01 10:30] LABS: CALCIUM 8.5 mg/dL (8.5-10.1); CREATININE 0.7 mg/dL (0.6-1.0); GFR 93.6; POTASSIUM 4.8 mmol/L (3.5-5.1)
[2021-03-01 10:35] LABS: ALBUMIN/GLOBULIN RATIO 1.4 (1.0-1.7); TOTAL BILIRUBIN 0.7 mg/dL (0.2-1.0); TOTAL PROTEIN 6.8 g/dL (6.4-8.2)
[2021-03-01] MEDS ORDERED: FAMOTIDINE 20 MG/2 ML VIAL IVP ONE (10:45)
[2021-03-01] MEDS ORDERED: MAG HYDROX/ALUMINUM HYD/SIMETH 30 ML ORAL.SUSP PO ONE (10:45)
[2021-03-01] MEDS ORDERED: HALOPERIDOL LACTATE 5 MG/ML VIAL. IVP ONE ×2 (10:45→11:00)
[2021-03-01 11:02] VITALS: BP 142/84
--- NOTE | 2021-03-01 11:11 | RAD ---
XR ABDOMEN COMP ACUTE History: Reason: epigastric abd pain / Spl. Instructions: / History: Technique: Upright and supine views of the abdomen. Comparison: April 27, 2019 Findings: No consolidation or pleural effusion. Normal heart size. No pneumothorax. No pneumoperitoneum. Nondilated air-filled loops of small bowel. Air and stool throughout the colon. Moderate proximal col onic stool burden. No air-fluid levels. Clips right upper quadrant. Impression: 1. Nonobstructed bowel gas pattern. 2. Moderate proximal colonic stool burden. Electronically signed by: Dwaine Grimm DO (03/01/2021 11:08 AM) [id number]
--- NOTE | 2021-03-01 11:17 | ED.ADGEN ---
Past Medical History Past Medical History: A-Fib, Anemia, Depression, Diabetes-Type II, GERD, Kidney Stone, Other Additional Past Medical Histor: multiple spontaneous abortions, ulcerative colitis, IBS; bowel obstruction Past Surgical History: Cholecystectomy, , Hysterectomy, Other Additional Past Surgical Histo: D&C, lithotripsy,C-DIFF Smoking Status: Former Smoker Alcohol Use: Occasionally Drug Use: None General Adult EDM: Chief Complaint: ABDOMINAL PAIN HPI: HPI: Patient is a 40-year-old female with past medical history of gastric bypass, gastritis, peptic ulcer disease, and multiple surgeries who presents to the emergency room complaining of epigastric abdominal pain. Patient went to [facility] for the same pain on Saturday. She states that the pain got better after treatment and she did not want any further testing after this. She left and went home. She states that it started again earlier today. She states that it feels like sharp stabbing pains. She reports nausea and vomiting. Denies constipation diarrhea. She has not had any fevers. She states she feels like she cannot eat or drink anything. She states that this is similar to her previous pain but feels different because she does not typically get lethargic or lightheaded with the pain. She states that she felt lethargic driving in today. Patient states she has not followed up with a GI specialist in quite awhile. She states she has had multiple EGDs, colonoscopies, and CTs in the past. She states she has been to lots of hospitals and cannot remember at what hospital she has had her last testing at. Review of Systems: Review of Systems: Complete ROS is negative unless otherwise documented in HPI Current Medications: Current Medications Medications (Trade) Dose Ordered Sig/Chandler Start Time Stop Time Status Last Admin Dose Admin Al Hydroxide/Mg Hydroxide (Mylanta Plus Xs) 30 ml 1X ONCE 03/01/21 10:45 03/01/21 10:46 DC 03/01/21 10:40 30 ML Famotidine (Pepcid Vial) 20 mg 1X ONCE 03/01/21 10:45 03/01/21 10:46 DC 03/01/21 10:40 20 MG Haloperidol Lactate (Haldol Inj) 2.5 mg 1X ONCE 03/01/21 11:00 03/01/21 11:01 DC 03/01/21 11:05 2.5 MG Ketorolac Tromethamine (Toradol 30mg Vial) 30 mg 1X ONCE 03/01/21 09:30 03/01/21 09:43 DC 03/01/21 09:25 30 MG Ondansetron HCl (Zofran) 4 mg 1X ONCE 03/01/21 09:45 03/01/21 09:46 DC 03/01/21 09:40 4 MG Sodium Chloride 1,000 ml @ 1,000 mls/hr 1X ONCE 03/01/21 09:15 03/01/21 10:14 DC 03/01/21 09:23 1,000 MLS/HR Allergies: Allergies: Allergies Coded Allergies Type Severity Reaction Last Updated Verified lidocaine Allergy Severe Anaphylactic shock 10/04/20 Yes morphine Allergy Intermediate TOLERATES DILAUDID 07/16/18 Yes phentermine Allergy Intermediate ANGRY 07/16/18 Yes butorphanol Adverse Reaction Severe "i get very angry" 07/16/18 Yes Physical Exam: PE: General: Awake, alert, NAD. Well Nourished, well hydrated. Cooperative HEENT: Atraumatic, EOMI, PERRL, airway patent, moist oral mucosa Neck: Supple, trachea midline Respiratory: CTA bilaterally, normal effort, no wheezing/crackles CV: RRR, no murmur, cap refill <2 GI: Soft, nondistended, epigastric tenderness, no rebound, no guarding, no masses MSK: No obvious deformities Skin: Warm, dry, intact Neuro: A&O x3, speech NL, sensory and motor grossly intact, no focal deficits Psych: Normal affect, normal mood, not suicidal or homicidal Current Patient Data: Labs: Laboratory Tests Test 03/01/21 08:30 03/01/21 08:58 03/01/21 09:30 Urine Collection Type Unknown Urine Color Yellow Urine Clarity Clear Urine pH 6.0 (<5.0-8.0) Urine Specific [place] 1.020 (1.000-1.030) Urine Protein Negative mg/dL (NEG-TRACE) Urine Glucose (UA) Negative mg/dL (NEG) Urine Ketones (Stick) Negative mg/dL (NEG) Urine Blood Negative (NEG) Urine Nitrite Negative (NEG) Urine Bilirubin Negative (NEG) Urine Urobilinogen Dipstick 0.2 mg/dL (0.2 mg/dL) Urine Leukocyte Esterase Moderate (NEG) Urine RBC 0 /HPF (0-2) Urine WBC 20-40 /HPF (0-4) Urine Squamous Epithelial Cells Few /LPF Urine Bacteria Few /HPF (0-FEW) Urine Opiates Screen Neg (NEG) Urine Methadone Screen Neg (NEG) Urine Barbiturates Neg (NEG) Urine Phencyclidine Screen Neg (NEG) Urine Amphetamine/Methamphetamine Pos (NEG) Urine Benzodiazepines Screen Neg (NEG) Urine Cocaine Screen Neg (NEG) Urine Cannabinoids Screen Neg (NEG) Urine Ethyl Alcohol Neg (NEG) White Blood Count 6.1 x10^3/uL (4.0-11.0) Red Blood Count 3.67 x10^6/uL (3.50-5.40) Hemoglobin 12.4 g/dL (12.0-15.5) Hematocrit 36.2 % (36.0-47.0) Mean Corpuscular Volume 99 fL (79-100) Mean Corpuscular Hemoglobin 34 pg (25-35) Mean Corpuscular Hemoglobin Concent 34 g/dL (31-37) Red Cell Distribution Width 13.0 % (11.5-14.5) Platelet Count 329 x10^3/uL (140-400) Neutrophils (%) (Auto) 71 % (31-73) Lymphocytes (%) (Auto) 22 % (24-48) L Monocytes (%) (Auto) 6 % (0-9) Eosinophils (%) (Auto) 1 % (0-3) Basophils (%) (Auto) 1 % (0-3) Neutrophils # (Auto) 4.3 x10^3/uL (1.8-7.7) Lymphocytes # (Auto) 1.3 x10^3/uL (1.0-4.8) Monocytes # (Auto) 0.3 x10^3/uL (0.0-1.1) Eosinophils # (Auto) 0.1 x10^3/uL (0.0-0.7) Basophils # (Auto) 0.0 x10^3/uL (0.0-0.2) Sodium Level 144 mmol/L (136-145) Potassium Level 4.8 mmol/L (3.5-5.1) Chloride Level 107 mmol/L (98-107) Carbon Dioxide Level 30 mmol/L (21-32) Anion Gap 7 (6-14) Blood Urea Nitrogen 11 mg/dL (7-20) Creatinine 0.7 mg/dL (0.6-1.0) Estimated GFR (Cockcroft-Gault) 93.6 BUN/Creatinine Ratio 16 (6-20) Glucose Level 102 mg/dL (70-99) H Calcium Level 8.5 mg/dL (8.5-10.1) Total Bilirubin 0.7 mg/dL (0.2-1.0) Aspartate Amino Transferase (AST) 14 U/L (15-37) L Alanine Aminotransferase (ALT) 21 U/L (14-59) Alkaline Phosphatase 51 U/L (46-116) Total Protein 6.8 g/dL (6.4-8.2) Albumin 4.0 g/dL (3.4-5.0) Albumin/Globulin Ratio 1.4 (1.0-1.7) Laboratory Tests 03/01/21 09:30 Laboratory Tests 03/01/21 09:30 Vital Signs: Vital Signs Date Time Temp Pulse Resp B/P (MAP) Pulse Ox O2 Delivery O2 Flow Rate FiO2 03/01/21 11:02 96 142/84 (103) 99 Room Air 03/01/21 08:30 98.4 18 98.4 EKG: EKG: [] Heart Score: C/O Chest Pain: N/A Risk Factors: Risk Factors: DM, Current or recent (<one month) smoker, HTN, HLP, family history of CAD, obesity. Risk Scores: Score 0 - 3: 2.5% MACE over next 6 weeks - Discharge Home Score 4 - 6: 20.3% MACE over next 6 weeks - Admit for Clinical Observation Score 7 - 10: 72.7% MACE over next 6 weeks - Early Invasive Strategies Radiology/Procedures: Radiology/Procedures: [] Course & Med Decision Making: Course & Med Decision Making Pertinent Labs and Imaging studies reviewed. (See chart for details) Patient is a 40-year-old female who presents to the emergency room complaining of epigastric abdominal pain with nausea and vomiting. Upon arrival to the emergency room patient is very well-appearing. Patient has not had any vomiting while here in the emergency room. Initially patient had a normal blood pressure and heart rate. She did have some epigastric tenderness. Upon review of patient's records, patient has presented with similar pain multiple times over the last several years and has had multiple CT scans. Patient does state that she has had multiple EGDs, colonoscopies, CT scans over the last several years and does not fully remember where all she has had this testing done or the names of her physicians as there has been so many over the last few years. Patient does not have any signs of peritonitis on exam. Abdomen is not distended. We will do an acute abdominal series to rule out obstruction or free air. X-ray does not show signs of small bowel obstruction or free air in the abdomen. abdo jh lab work was done including a CBC, CMP, lipase, UA. Lab work is unremarkable. Patient did have low potassium earlier this week but her potassium at this time is normal. Patient does not have an increased white blood cell count to suggest infection. Given the patient has had multiple CT scans over the last several years at our facility as well as at , [facility], and facilities in [place] will refrain from doing a CT today. Patient will need to return if she develops fever, worsening symptoms, worsening vomiting to be reevaluated for possible CT in the future. It is likely the patient symptoms are due to her chronic gastritis. While in the emergency room, patient was very insistent that she receive either fentanyl or Dilaudid. Upon her initial evaluation patient had normal vitals, however after patient was told that narcotics were not indicated for her current condition patient became anxious and started getting upset. Her heart rate did become elevated after patient became upset. Multiple medications were ordered for the patient including Maalox, Toradol, Haldol, Pepcid to help with her pain and symptoms. Patient was also given fluids and Zofran. Patient initially refused the Haldol. After getting the Toradol, she stated to the nurse that "Toradol never works for her and that she needs fentanyl or Dilaudid." Patient remained insistent that she needed narcotics. I had a long discussion with the patient that at this time her x-rays and lab work are currently normal. I have discussed with her that IV narcotic pain medicine is not indicated at this time given that her work-up appears stable and her pain is likely chronic in nature. Patient initially stated that she declined medications because she knows they do not work for this pain and then stated that this is new pain and not chronic pain. I discussed with the patient that if this is new pain we cannot know if the pain would be helped with these medications or not. Patient states that she will have to go to a different hospital since we will not give her narcotic pain medicine. She states that she needs narcotic pain medicine to help her so she can make it through the day and make it until she can see a GI specialist. She states that she understands that her work-up at this time is normal, however states that we have not done a CT scan, EGD, or colonoscopy to ensure that there is nothing going on at this time. I have discussed with the patient that there is not a current indication to do this testing emergently or to be admitted to the hospital. Patient did not have any vomiting while she was here in the emergency room. She did eventually agree to take the Haldol which was reordered. After patient calmed back down her heart rate returned to 80s. Blood pressure remains stable. Patient remains afebrile. Will give patient the office information to GI to follow up. Patient's test results and vitals while in the ED were fully reviewed and discussed with the patient. Patient is stable and at this time does not need admission to the hospital. We have discussed strict return precautions and the importance of following up with their Primary Care Physician. Patient stated understanding and was given an opportunity to ask any questions. Patient is in agreement with plan. Patient ambulated without difficulty or distress at discharge to the waiting room with her . Yimi Disclaimer: Yimi Disclaimer: This electronic medical record was generated, in whole or in part, using a voice recognition dictation system. Departure Departure Impression: Primary Impression: Abdominal pain Additional Impression: Upper abdominal pain Disposition: HOME / SELF CARE / HOMELESS Condition: STABLE Referrals: OVIDIO DIAMOND (PCP) Patient Instructions: Abdominal Pain Scripts Cephalexin (CEPHALEXIN) 500 Mg Capsule 1 CAP PO BID, #14 CAP Prov: CESAR BOUCHER MD 03/01/21 Problem Qualifiers CESAR BOUCHER MD March 01, 2021 11:16
[2021-03-01] MEDS ORDERED: CEPH500C PO (11:46)
== END 2021-03-01 11:46 | disposition home or self-care (01) ==
LOC: ER 08:17
DX: R10.13 Epigastric pain (principal); I48.91 Unspecified atrial fibrillation; E11.9 Type 2 diabetes mellitus without complications; K21.9 Gastro-esophageal reflux disease without esophagitis; K58.9 Irritable bowel syndrome, unspecified; Z87.891 Personal history of nicotine dependence; Z90.49 Acquired absence of other specified parts of digestive tract; Z90.710 Acquired absence of both cervix and uterus; Z88.4 Allergy status to anesthetic agent; Z88.5 Allergy status to narcotic agent; Z88.8 Allergy status to other drugs, medicaments and biological substances
CPT/HCPCS: 36415; 74022; 80053; 80307; 81001; 85025; 96361; 96374; 96375; 99285; J1630; J1885; J2405; J3490; J7030